=== PATIENT | female | born 1950 | race Caucasian/White ===

== ENCOUNTER → 2017-09-01 15:19 | Outpatient (CLI) | payer MEDICARE, SELFPAY ==
--- NOTE | 2017-09-01 15:30 | CT_ITS ---
EXAM: CT LUNG LOW DOSE WO CONTRAST COMPARISON: None HISTORY: 67-year-old female with greater than 30 pack-year smoking hash history asymptomatic ORDERING PHYSICIAN: Corbin Dominguez MD PATIENT AGE: 67 years TECHNIQUE: The exam was performed on a GE Light Speed [address] scanner using 2.94 mGy CTDI. A low dose helical CT CHEST was performed on a multi-detector scanner The LDCT was performed in a facility that meets the criteria for the screening program. Data regarding this exam was submitted to ACR which is an approved registry. The order for this exam indicates that it came as a result of a lung cancer screening counseling shard decision-making visit that included all the elements required of such a visit including smoking cessation. The radiologist interpreting this exam meets the [facility] criteria for the LDCT lung cancer screening program. The exam is reported using the Lung-RADS classification scale and reported to the ACR registry. NOTE: This study was performed for the specific purposes of lung cancer screening and is not an alternative to diagnostic chest CT. RADIATION DOSE: CTDI vol(CT dose Index-volume) = 2.94 mGy DLP (Dose Length Product) = 101.73 mGcm FINDINGS: There are scattered small calcified granulomas. There is a noncalcified 6 mm nodule in the right upper lobe posteriorly. No effusions or infiltrates. No obvious mediastinal or hilar adenopathy. There is minimal focal thickening of the anterior pericardium nonspecific. Centrilobular emphysema IMPRESSION: 1. Lung RADS Category: 3, probably benign 2. Other findings: Centrilobular edema, old granulomatous disease RECOMMENDATIONS: 6 month LDCT follow-up
== END ==
PROVIDERS: Family Provider Family Medicine; PCP Family Medicine; Visit Provider Family Medicine
DX: Z12.2 Encounter for screening for malignant neoplasm of respiratory organs (principal); Z87.891 Personal history of nicotine dependence

== ENCOUNTER → 2017-10-05 14:38 | Outpatient (POV) | payer MEDICARE, SELFPAY | PROVIDERS: Family Provider Family Medicine; PCP Family Medicine; Visit Provider Dermatology | DX: Z00.00 Encounter for general adult medical examination without abnormal findings (principal) ==

== ENCOUNTER → 2018-02-01 09:42 | Outpatient (CLI) | payer MEDICARE, SELFPAY ==
[2018-02-01 10:02] LABS: Blood Urea Nitrogen 18 mg/dL (7-18); Creatinine,Serum 0.82 mg/dL (0.55-1.02); Estimated Glomerular Filt Rate 69 ml/min (>60); GFR (African American) 83 ML/MIN (>60)
--- NOTE | 2018-02-01 10:19 | CT_ITS ---
CT abdomen pelvis w con CLINICAL INDICATION: Left lower quadrant pain with vomiting ITS.REASON: LLQ ABD PAIN, VOMITING ORDERING PHYSICIAN: Corbin Dominguez MD PATIENT AGE: 68 years COMPARISON: None TECHNIQUE: Axial images obtained with sagittal and coronal reformats. All CT scans at the facility use one or more dose reduction, viz: automated exposure control, ma/kV adjustment per patient size (including targeted exams where dose is matched to indication, i.e. head), or iterative reconstruction technique. PROCEDURE: Oral Contrast: Redicat IV Contrast: 75 mL's of Isovue-370. FINDINGS: There are dependent changes in the lung bases. The liver, spleen, and adrenal glands are unremarkable. No obvious pancreatic mass. There are a few punctate calcifications within the head of the pancreas and could be related to chronic pancreatitis. The gallbladder has an unremarkable appearance. No hydronephrosis. No renal or ureteral calculi. No evidence of appendicitis, intestinal obstruction, or free air. There is diverticulosis of the descending and sigmoid colon. No evidence of diverticulitis. No abscess or abnormal fluid collection in the pelvis. Degenerative disc disease L4-L5. IMPRESSION: 1. No acute abdominal or pelvic findings. 2. Diverticulosis of the descending and sigmoid colon but no convincing evidence of diverticulitis.
== END ==
PROVIDERS: Family Provider Family Medicine; PCP Family Medicine; Visit Provider Family Medicine
DX: R10.32 Left lower quadrant pain (principal); R11.2 Nausea with vomiting, unspecified
CPT/HCPCS: 36415; 74177; 82565; 84520; Q9967

== ENCOUNTER → 2018-02-28 08:10 | Outpatient (CLI) | payer MEDICARE, SELFPAY ==
--- NOTE | 2018-02-28 08:12 | US_ITS ---
US abdomen limited History:Right upper quadrant pain with nausea Ordering Physician:Corbin Dominguez MD Patient Age: 68 years Comparison:06/05/2012 Findings: Pancreas:Unremarkable. No obvious mass or abnormal fluid collection. No ductal dilatation Liver:There is a small area of decreased echogenicity in the left hepatic lobe at 12 mm similar to the previous exam. No other significant anomalies. Right Kidney:Unremarkable. Normal size and echogenicity. No hydronephrosis Gallbladder: No shadowing stones are evident. There is a small area of increased echogenicity along the inferior aspect of the gallbladder anteriorly and may be due to small amount sludge. This does not shadow. No gallbladder wall thickening, pericholecystic fluid, or biliary dilatation. IMPRESSION: 1. Tiny nonshadowing stones versus sludge along the posterior wall the gallbladder. No shadowing stones evident. No ductal dilatation. 2. No change small area of decreased echogenicity in the anterior aspect of the liver radiology indeterminate not significantly changed
== END ==
PROVIDERS: Family Provider Family Medicine; PCP Family Medicine; Visit Provider Family Medicine
DX: R10.11 Right upper quadrant pain (principal)
CPT/HCPCS: 76705

== ENCOUNTER → 2018-03-07 14:32 | Outpatient (CLI) | payer MEDICARE, SELFPAY ==
[2018-03-07 14:55] LABS: Basophils % 0.4 % (0.1-2.0); Eosinophils # 0.1 K/mm3 (0.0-0.4); Eosinophils % 1.3 % (0.1-12.0); Hemoglobin 14.1 g/dL (12.2-16.2); Lymphocytes # 3.1 K/mm3 (0.7-4.5); Lymphocytes % 34.9 K/mm3 (10-50); Mean Corpuscular HGB Conc 33.5 g/dL (31.8-35.4); Mean Corpuscular Hemoglobin 33.4 pg (27.0-31.2); Mean Corpuscular Volume 99.8 fl (81-99); Mean Platelet Volume 7.3 fl (7.4-10.4); Monocytes # 0.5 K/mm3 (0.1-1.0); Monocytes % 5.9 % (1.7-9.3); Neutrophils # 5.2 K/mm3 (1.8-7.8); Neutrophils % 57.6 % (37.0-80.0); Platelet Count 288 K/mm3 (142-424); Red Blood Count 4.21 M/mm3 (4.20-5.40); Red Cell Distribution Width 12.8 % (11.5-17.5)
[2018-03-07 15:30] LABS: Alanine Aminotransferase 33 U/L (12-78); Albumin Level 3.7 gm/dL (3.4-5.0); Albumin/Globulin Ratio 1.3 (1.1-1.8); Alkaline Phosphatase 88 U/L (46-116); Anion Gap 12.2 mEq/L (5-15); Aspartate Amino Transferase 14 U/L (15-37); Bilirubin,Total 0.3 mg/dL (0.2-1.0); Blood Urea Nitrogen 12 mg/dL (7-18); Carbon Dioxide 29 mmol/L (21.0-32.0); Chloride 105 mmol/L (98-107); Creatinine,Serum 0.78 mg/dL (0.55-1.02); Estimated Glomerular Filt Rate 73 ml/min (>60); GFR (African American) 88 ML/MIN (>60); Globulin 2.9 gm/dl (1.3-3.2); Glucose 93 mg/dL (74-106); Potassium 4.2 mmoL/L (3.5-5.1); Sodium 142 mmol/L (136-145); Total Protein,Serum 6.6 gm/dL (6.4-8.2)
== END ==
PROVIDERS: PCP Family Medicine; Visit Provider Surgery
DX: K81.1 Chronic cholecystitis (principal)
CPT/HCPCS: 36415; 80053; 85025; 93005

== ENCOUNTER → 2018-05-03 14:33 | Outpatient (CLI) | payer MEDICARE, SELFPAY ==
[2018-05-03 16:09] LABS: Blood Urea Nitrogen 13 mg/dL (7-18); Estimated Glomerular Filt Rate 71 ml/min (>60); GFR (African American) 86 ML/MIN (>60)
== END ==
PROVIDERS: PCP Family Medicine; Visit Provider Family Medicine
DX: R91.1 Solitary pulmonary nodule (principal)
CPT/HCPCS: 36415; 82565; 84520

== ENCOUNTER → 2018-05-09 10:12 | Outpatient (CLI) | payer MEDICARE, SELFPAY ==
--- NOTE | 2018-05-09 10:14 | CT_ITS ---
CT chest w con HISTORY: Follow-up lung nodule ITS.REASON: LUNG NODULE ORDERING PHYSICIAN: Corbin Dominguez MD PATIENT AGE: 68 years COMPARISON: 09/01/2017 TECHNIQUE: Axial images obtained following the administration of 75 mL of Isovue 370 . Sagittal, and coronal reformatted images are also generated and reviewed. All CT scans at the facility use one or more dose reduction, viz: automated exposure control, ma/kV adjustment per patient size (including targeted exams where dose is matched to indication, i.e. head), or iterative reconstruction technique. FINDINGS: There is mild diffuse centrilobular emphysema. No mediastinal or hilar mass or adenopathy is evident. There is a 7 mm hypodense nodule within the isthmus of the thyroid gland. No change 4 mm right upper lobe nodule superiorly and 4 mm right upper lobe nodule posteriorly. 3 mm nodule right lower lobe laterally unchanged. Atelectatic changes are present in the lung bases. No acute bony anomalies. There is coarse calcification in the central aspect of the pancreas with some focal fat density in the mid aspect of the pancreas. This had a similar appearance dating back to 09/18/2012. IMPRESSION: Centrilobular emphysema with stable small pulmonary nodules. No significant change with no acute finding.
--- NOTE | 2018-05-09 10:42 | HMH.ITSHM ---
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 []REGLAN,SIMVASTATIN,PREVCID,VIT D
== END ==
PROVIDERS: PCP Family Medicine; Visit Provider Family Medicine
DX: R91.1 Solitary pulmonary nodule (principal)
CPT/HCPCS: 71260; Q9967

== ENCOUNTER → 2018-06-19 10:46 | Outpatient (CLI) | payer MEDICARE, SELFPAY ==
[2018-06-19 12:06] LABS: Blood Urea Nitrogen 12 mg/dL (7-18); Creatinine,Serum 0.92 mg/dL (0.55-1.02); Estimated Glomerular Filt Rate 60 ml/min (>60); GFR (African American) 73 ML/MIN (>60)
== END ==
PROVIDERS: Visit Provider Family Medicine
DX: R10.32 Left lower quadrant pain (principal)
CPT/HCPCS: 36415; 82565; 84520

== ENCOUNTER → 2018-06-21 10:10 | Outpatient (CLI) | payer MEDICARE, SELFPAY ==
--- NOTE | 2018-06-21 10:25 | CT_ITS ---
CT abdomen pelvis w con CLINICAL INDICATION: ITS.REASON: LLQ PAIN,LEUKOCYTOSIS,DIVERTICULOSIS ORDERING PHYSICIAN: Corbin Dominguez MD PATIENT AGE: 68 years COMPARISON: 02/01/2018 TECHNIQUE: Axial images obtained with sagittal and coronal reformats. All CT scans at the facility use one or more dose reduction, viz: automated exposure control, ma/kV adjustment per patient size (including targeted exams where dose is matched to indication, i.e. head), or iterative reconstruction technique. PROCEDURE: Oral Contrast: Redicat IV Contrast: 75 mL of Isovue-370. FINDINGS: There are mild atelectatic changes in the left lower lobe. The liver, spleen, adrenal glands and pancreas show no acute finding. There is some coarse calcification noted in the body of the pancreas posteriorly nonspecific and unchanged. No renal or ureteral calculi. No hydronephrosis. 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 No evidence of appendicitis. No intestinal obstruction or free air. There is diffuse diverticulosis of the descending and sigmoid colon There is thickening of the sigmoid colon with minimal stranding of the pericolic fat consistent with diverticulitis. Inflamed diverticulum is felt to be in the left lateral aspect of the sigmoid colon adjacent to the ovary. No free air. No abscess. There is minimal amount of fluid in the cul-de-sac. Scattered calcifications are present in the adnexa on both sides. No acute bony anomalies. IMPRESSION: 1. 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
== END ==
PROVIDERS: PCP Family Medicine; Visit Provider Family Medicine
DX: R10.32 Left lower quadrant pain (principal); D72.829 Elevated white blood cell count, unspecified; K57.30 Diverticulosis of large intestine without perforation or abscess without bleeding
CPT/HCPCS: 74177; Q9967

== ENCOUNTER → 2018-09-18 09:21 | Outpatient (CLI) | payer MEDICARE, SELFPAY ==
[2018-09-18 09:26] LABS: Adenovirus F 40/41, stool Not Detected (NotDetected); Astrovirus Not Detected (NotDetected); Campylobacter Not Detected (NotDetected); Clostridium Difficile A/B, PCR Not Detected (NotDetected); Cryptosporidium Not Detected (NotDetected); Cyclospora Cayetanesis Not Detected (NotDetected); Entamoeba histolytica Not Detected (NotDetected); Enteroaggregative E coli Not Detected (NotDetected); Enteropathogenic E coli Not Detected (NotDetected); Enterotoxigenic E coli Not Detected (NotDetected); Giardia lamblia Not Detected (NotDetected); Norovirus Not Detected (NotDetected); Plesimonas Shigalloides, PCR Not Detected (NotDetected); Rotavirus A Not Detected (NotDetected); Salmonella, PCR Not Detected (NotDetected); Sapovirus Not Detected (NotDetected); Shiga-like toxin E coli Not Detected (NotDetected); Shigella Enterovasive E coli Not Detected (NotDetected); Vibrio Cholerae Not Detected (NotDetected); Vibrio, PCR Not Detected (NotDetected); Yersinia Entercolitica, PCR Not Detected (NotDetected)
[2018-09-18 09:36] LABS: Occult Blood,Stool Positive (Negative)
[2018-09-18 10:49] LABS: Alanine Aminotransferase 29 U/L (12-78); Albumin Level 3.6 gm/dL (3.4-5.0); Albumin/Globulin Ratio 1.2 (1.1-1.8); Alkaline Phosphatase 98 U/L (46-116); Anion Gap 14.6 mEq/L (5-15); Aspartate Amino Transferase 19 U/L (15-37); Bilirubin,Total 0.4 mg/dL (0.2-1.0); Blood Urea Nitrogen 9 mg/dL (7-18); Calcium 10.5 mg/dL (8.5-10.1); Carbon Dioxide 26 mmol/L (21.0-32.0); Chloride 106 mmol/L (98-107); Creatinine,Serum 0.77 mg/dL (0.55-1.02); Estimated Glomerular Filt Rate 74 ml/min (>60); GFR (African American) 90 ML/MIN (>60); Globulin 3.1 gm/dl (1.3-3.2); Glucose 156 mg/dL (74-106); Potassium 4.6 mmoL/L (3.5-5.1); Sodium 142 mmol/L (136-145); Total Protein,Serum 6.7 gm/dL (6.4-8.2)
[2018-09-18 10:52] LABS: Basophils % 0.3 % (0.1-2.0); Eosinophils # 0.1 K/mm3 (0.0-0.4); Eosinophils % 0.7 % (0.1-12.0); Hematocrit 43.9 % (37.0-47.0); Hemoglobin 14.5 g/dL (12.2-16.2); Lymphocytes # 2.3 K/mm3 (0.7-4.5); Lymphocytes % 28.4 % (10-50); Mean Corpuscular HGB Conc 33.2 g/dL (31.8-35.4); Mean Corpuscular Hemoglobin 33.2 pg (27.0-31.2); Mean Platelet Volume 7.9 fl (7.4-10.4); Monocytes # 4.5 K/mm3 (0.1-1.0); Neutrophils # 1.4 K/mm3 (1.8-7.8); Neutrophils % 16.6 % (37.0-80.0); Platelet Count 349 K/mm3 (142-424); Red Blood Count 4.38 M/mm3 (4.20-5.40); White Blood Count 8.2 K/mm3 (4.8-10.8)
[2018-09-18 11:21] LABS: MANUAL DIFFERENTIAL MANUAL DIFFERENTIAL (MANUAL DIFF)
[2018-09-18 11:25] LABS: Lymphocytes % 16 % (10-50); Neutrophils % 80 % (42-76); Platelet Estimate Normal; RBC Morphology Normal; Total Cells Counted 100
[2018-09-18 11:28] LABS: Monocytes % 54.1 % (1.7-9.3)
== END ==
PROVIDERS: Visit Provider Family Medicine
DX: R19.7 Diarrhea, unspecified (principal)
CPT/HCPCS: 36415; 80053; 82272; 85007; 85025; 87506; G0328

== ENCOUNTER → 2018-11-30 08:11 | Outpatient (CLI) | payer MEDICARE, SELFPAY ==
[2018-11-30 09:05] LABS: Basophils % 0.7 % (0.1-2.0); Eosinophils # 0.2 K/mm3 (0.0-0.4); Hematocrit 40.2 % (37.0-47.0); Hemoglobin 13.8 g/dL (12.2-16.2); Lymphocytes # 2.2 K/mm3 (0.7-4.5); Lymphocytes % 35.2 % (10-50); Mean Corpuscular HGB Conc 34.3 g/dL (31.8-35.4); Mean Corpuscular Hemoglobin 32.5 pg (27.0-31.2); Mean Corpuscular Volume 94.9 fl (81-99); Mean Platelet Volume 7.7 fl (7.4-10.4); Monocytes # 2.9 K/mm3 (0.1-1.0); Monocytes % 47.8 % (1.7-9.3); Neutrophils # 0.8 K/mm3 (1.8-7.8); Platelet Count 262 K/mm3 (142-424); Red Blood Count 4.23 M/mm3 (4.20-5.40); Red Cell Distribution Width 13.3 % (11.5-17.5); White Blood Count 6.2 K/mm3 (4.8-10.8)
[2018-11-30 09:15] LABS: Neutrophils % 13.3 % (37.0-80.0)
[2018-11-30 09:17] LABS: MANUAL DIFFERENTIAL MANUAL DIFFERENTIAL (MANUAL DIFF)
[2018-11-30 09:43] LABS: Eosinophils % 3 % (0-3); Lymphocytes % 30 % (10-50); Monocytes % 6 % (2-9); Neutrophils % 58 % (42-76); Total Cells Counted 100
[2018-11-30 09:45] LABS: Platelet Estimate Normal; RBC Morphology Normal
[2018-11-30 11:21] LABS: Alanine Aminotransferase 29 U/L (12-78); Albumin Level 3.5 gm/dL (3.4-5.0); Albumin/Globulin Ratio 1.3 (1.1-1.8); Alkaline Phosphatase 91 U/L (46-116); Anion Gap 16.8 mEq/L (5-15); Aspartate Amino Transferase 16 U/L (15-37); Bilirubin,Total 0.5 mg/dL (0.2-1.0); Blood Urea Nitrogen 14 mg/dL (7-18); Carbon Dioxide 25 mmol/L (21.0-32.0); Chloride 108 mmol/L (98-107); Chol/HDL Ratio 2.8 (1-3.5); Cholesterol 163 mg/dL (140-200); Creatinine,Serum 0.82 mg/dL (0.55-1.02); Estimated Glomerular Filt Rate 69 ml/min (>60); GFR (African American) 83 ML/MIN (>60); Globulin 2.8 gm/dl (1.3-3.2); Glucose 95 mg/dL (74-106); HDL Cholesterol 58 mg/dL (29-89); LDL Cholesterol 91 mg/dL (0-130); Potassium 4.8 mmoL/L (3.5-5.1); Sodium 145 mmol/L (136-145); Thyroid Stimulating Hormone 0.88 uIU/ml (0.358-3.740); Total Protein,Serum 6.3 gm/dL (6.4-8.2); Triglycerides 70 mg/dL (30-200); VLDL Cholesterol 14 mg/dL (0-40)
[2018-12-02 17:07] LABS: Calcium, Ionized 6.1 mg/dL (4.5-5.6)
== END ==
PROVIDERS: Visit Provider Family Medicine
DX: E83.52 Hypercalcemia (principal); E78.2 Mixed hyperlipidemia; R19.5 Other fecal abnormalities
CPT/HCPCS: 36415; 80053; 80061; 82330; 84443; 85007; 85025

== ENCOUNTER → 2019-01-21 09:04 | Outpatient (POV) | payer MEDICARE, SELFPAY | PROVIDERS: PCP Nurse Practitioner Family; Visit Provider Nurse Practitioner Family | DX: Z00.00 Encounter for general adult medical examination without abnormal findings (principal) ==

== ENCOUNTER → 2019-05-20 10:17 | Outpatient (POV) | payer MEDICARE, SELFPAY | PROVIDERS: PCP Family Medicine; Visit Provider Nurse Practitioner Family | DX: Z00.00 Encounter for general adult medical examination without abnormal findings (principal) ==

== ENCOUNTER → 2019-09-02 08:54 | Outpatient (CLI) | payer MEDICARE, SELFPAY ==
--- NOTE | 2019-09-02 09:03 | US_ITS ---
PROCEDURE: US AORTA CLINICAL INDICATION: FAMILY HX OF AAA..SCREENING COMPARISON: No exams were available for comparison FINDINGS: No evidence of abdominal aortic aneurysm. Proximal common iliacs have an unremarkable appearance. IMPRESSION: Negative for abdominal aortic aneurysm Dictated by: Triston Dennis MD 09/02/2019 13:58 Electronically signed by Triston Dennis MD in [place] 09/02/2019 13:58
--- NOTE | 2019-09-02 09:07 | CT_ITS ---
PROCEDURE: CT LUNG SCREENING CLINICAL INDICATION: NICOTINE DEPENDENCE...SCREENING FOR LUNG CA COMPARISON: LUNGSCREEN CT lung screening from 09/01/2017 TECHNIQUE: The exam was performed on a GE Light Speed [address] scanner using 2.90 mGy CTDI. A low dose helical CT CHEST was performed on a multi-detector scanner. All CT scans at the facility use one or more dose reduction, viz: automated exposure control, ma/kV adjustment per patient size (including targeted exams where dose is matched to indication, i.e. head), or iterative reconstruction technique. The LDCT was performed in a facility that meets the criteria for the screening program. Data regarding this exam was submitted to ACR which is an approved registry. The order for this exam indicates that it came as a result of a lung cancer screening counseling shard decision-making visit that included all the elements required of such a visit including smoking cessation. The radiologist interpreting this exam meets the [facility] criteria for the LDCT lung cancer screening program. The exam is reported using the Lung-RADS classification scale and reported to the ACR registry. NOTE: This study was performed for the specific purposes of lung cancer screening and is not an alternative to diagnostic chest CT. RADIATION DOSE: CTDI vol(CT dose Index-volume) = 2.90mG DLP (Dose Length Product) = 94.29 mGcm FINDINGS: COPD with centrilobular emphysema. There are stable 4 and 5 mm nodules in the right upper lobe. A new 4 mm nodules present in the right upper lobe laterally image number 22 series 4 nonspecific. No suspicious pulmonary nodules are evident. No effusions or infiltrates. OTHER FINDINGS: No other pertinent findings evident. IMPRESSION: Lung rads category 2 benign findings. Recommend follow-up [address] Dictated by: Triston Dennis MD 09/07/2019 09:56 Electronically signed by Triston Dennis MD in [place] 09/07/2019 09:56
[2019-09-02 10:32] LABS: Blood Urea Nitrogen 12 mg/dl (7-17); Estimated Glomerular Filt Rate 62 ml/min (>60); GFR (African American) 75 ML/MIN (>60)
== END ==
PROVIDERS: PCP Family Medicine; Visit Provider Family Medicine
DX: Z87.891 Personal history of nicotine dependence (principal); Z12.2 Encounter for screening for malignant neoplasm of respiratory organs; I71.4 Abdominal aortic aneurysm, without rupture
CPT/HCPCS: 36415; 76770; 82565; 84520

== ENCOUNTER → 2019-09-04 09:07 | Outpatient (CLI) | payer MEDICARE, SELFPAY ==
--- NOTE | 2019-09-04 09:17 | CT_ITS ---
PROCEDURE: CT ABDOMEN PELVIS W CON CLINICAL INDICATION: EPIGASTRIC PAIN, NAUSEA, DYSPEPSIA,CONSTIPATION COMPARISON: ABDPELW CT ABD PELVIS WITH CONTRAST from 09/18/[address] abdomen pelvis w con from 06/21/2018 TECHNIQUE: IV Contrast: 75ML OPTIRAY 350 Oral Contrast 450ml Redicat Axial images obtained with sagittal and coronal reformats. All CT scans at the facility use one or more dose reduction, viz: automated exposure control, ma/kV adjustment per patient size (including targeted exams where dose is matched to indication, i.e. head), or iterative reconstruction technique. FINDINGS: LOWER THORAX: No acute finding ABDOMEN & PELVIS: Post cholecystectomy change. There is a 5 mm area of decreased density in the right hepatic lobe inferiorly. This is nonspecific too small to categorize along the peripheral aspect of the liver. Spleen, adrenal glands, and kidneys have an unremarkable appearance. There is some coarse calcification in the body and the head of the pancreas and may represent chronic pancreatitis. There is a fatty area in the junction of the body and tail the pancreas. This may only represent an area focal pancreatic atrophy with filling in of the fat and does not appear significantly changed dating back to 09/18/2012. No intestinal obstruction or free air. No evidence of appendicitis the. There is a mild amount of retained colonic feces. Postsurgical changes are present involving the sigmoid colon. No evidence of diverticulitis. No pelvic mass or abnormal fluid collection. Minimal nodularity is present along the anterior aspect of the surface of the uterus and may be due to small fibroid at 8 mm. Postsurgical changes are present involving the anterior abdominal wall. No acute bony findings. IMPRESSION: 1. Coarse calcification in the body and head of the pancreas suggesting chronic pancreatitis. 2. Other nonacute findings as described above. Dictated by: Triston Dennis MD 09/05/2019 10:08 Electronically signed by Triston Dennis MD in [place] 09/05/2019 10:08
== END ==
PROVIDERS: PCP Family Medicine; Visit Provider Internal Medicine Gastroenterology
DX: R11.0 Nausea (principal); R10.13 Epigastric pain; K59.00 Constipation, unspecified
CPT/HCPCS: 74177; Q9967

== ENCOUNTER → 2019-09-16 10:56 | Outpatient (CLI) | payer MEDICARE, SELFPAY ==
[2019-09-16 13:18] LABS: Chloride 109 mmol/L (98-107)
[2019-09-16 13:19] LABS: Potassium 4.2 mmoL/L (3.5-5.1); Sodium 140 mmol/L (136-145)
[2019-09-16 13:21] LABS: Alanine Aminotransferase 27 U/L (12-78); Amylase 37 U/L (30-110); Anion Gap 12.2 mEq/L (5-15); Aspartate Amino Transferase 27 U/L (14-36); Blood Urea Nitrogen 13 mg/dl (7-17); Carbon Dioxide 23 mmol/L (22.0-30.0); Estimated Glomerular Filt Rate 82 ml/min (>60); GFR (African American) 100 ML/MIN (>60)
[2019-09-16 13:22] LABS: Albumin Level 4.3 g/dl (3.5-5.0); Albumin/Globulin Ratio 1.8 (1.1-1.8); Alkaline Phosphatase 82 U/L (38-126); Bilirubin,Total 0.4 mg/dl (0.2-1.3); Calcium 10.6 mg/dl (8.4-10.2); Globulin 2.4 g/dL (1.3-3.2); Glucose 116 mg/dl (74-100); Lipase 39 U/L (23-300); Total Protein,Serum 6.7 g/dl (6.3-8.2)
[2019-09-20 11:22] LABS: CA 19-9 57 U/mL (0-35)
== END ==
PROVIDERS: Visit Provider Internal Medicine Gastroenterology
DX: R11.0 Nausea (principal); K86.1 Other chronic pancreatitis; R10.13 Epigastric pain
CPT/HCPCS: 36415; 80053; 82150; 83690; 86316

== ENCOUNTER → 2019-11-26 10:58 | Outpatient (CLI) | payer MEDICARE, SELFPAY ==
[2019-11-26 12:10] LABS: Alanine Aminotransferase 17 U/L (12-78); Albumin Level 4.5 g/dl (3.5-5.0); Albumin/Globulin Ratio 1.9 (1.1-1.8); Alkaline Phosphatase 100 U/L (38-126); Amylase 35 U/L (30-110); Anion Gap 7.6 mEq/L (5-15); Aspartate Amino Transferase 22 U/L (14-36); Bilirubin,Total 0.4 mg/dl (0.2-1.3); Blood Urea Nitrogen 17 mg/dl (7-17); Calcium 10.5 mg/dl (8.4-10.2); Carbon Dioxide 27 mmol/L (22.0-30.0); Chloride 108 mmol/L (98-107); Estimated Glomerular Filt Rate 82 ml/min (>60); GFR (African American) 100 ML/MIN (>60); Globulin 2.4 g/dL (1.3-3.2); Glucose 94 mg/dl (74-100); Lipase 83 U/L (23-300); Potassium 4.6 mmoL/L (3.5-5.1); Sodium 138 mmol/L (136-145); Total Protein,Serum 6.9 g/dl (6.3-8.2)
[2019-11-28 10:05] LABS: CA 19-9 50 U/mL (0-35)
== END ==
PROVIDERS: Visit Provider Internal Medicine Gastroenterology
DX: K86.1 Other chronic pancreatitis (principal); R11.0 Nausea; R10.33 Periumbilical pain
CPT/HCPCS: 36415; 80053; 82150; 83690; 86316

== ENCOUNTER → 2019-12-03 08:52 | Outpatient (CLI) | payer MEDICARE, SELFPAY ==
--- NOTE | 2019-12-03 08:55 | XR_ITS ---
PROCEDURE: XR DEXA AXIAL SKELETON CLINICAL HISTORY: OSTEOPENIA COMPARISON: BONE3 BONE DENSITOMETRY(HIP:LT SPINE from 01/11/2017, 12/20/2012, 05/10/2011 and 12/08/2009 FINDINGS: The average BMD L1 through L4 lumbar spine is 0.877 g per sq cm with a T-score -1.5. This shows a slight interval decrease in bone density of from the most recent exam with a T-score is -1.1. Right hip: The total BMD is 0.765 g per sq cm. The T-score is -1.5. The right femoral neck is 0.670 g per sq cm with a T-score -1.6. There has been slight interval decrease in bone density for both measurements from the most recent exam. Left hip: The total BMD is 0.657 g per sq cm the T score of -2.3. The left femoral neck is 0.620 g per sq cm with a T-score -2.1. Both of these values show interval decrease in bone density from most recent exam. IMPRESSION: T-scores in the osteopenia range for lumbar spine and bilateral hips with interval decrease in bone density from the most recent exam. Dictated by: Dr. Carl Teague MD 12/03/2019 09:[address] Carl Teague MD in [place] 12/03/2019 09:53
== END ==
PROVIDERS: PCP Family Medicine; Visit Provider Family Medicine
DX: M85.88 Other specified disorders of bone density and structure, other site (principal)
CPT/HCPCS: 77080

== ENCOUNTER → 2020-01-06 15:33 | Outpatient (POV) | payer MEDICARE, SELFPAY | PROVIDERS: Visit Provider Nurse Practitioner Family | DX: Z00.00 Encounter for general adult medical examination without abnormal findings (principal) ==

== ENCOUNTER 2020-01-27 12:54 | Emergency (ER) | payer MEDICARE, SELFPAY ==
[2020-01-27 13:01] VITALS: BP 104/74; PULSE 77; RESP 17; TEMP 36.8; O2SAT 98; BMI 21.4
--- NOTE | 2020-01-27 13:31 | HMH.EDUTC ---
[facility] [place] Disposition Clinical Impression: COVID-19 ruled out Disposition: Home, Self-Care Condition on Discharge: Good Instructions: Preventing the Spread of Coronavirus Discharge Instructions Additional Instructions: No sign of a bacterial infection. Monitor temp. Tylenol or Motrin as needed for pain or fever Encourage fluids, water, Gatorade, Powerade, Pedialyte if infant/toddler/child Your swab was sent. These results are typically sent to the primary care. Be sure you follow-up in 2-3 days if no improvement so we can review the results and treat if necessary if you do not have a primary care, I recommend to get 1 but in the meantime, call for results. Follow-up immediately for new or worsening symptoms or no noticeable improvement over the next 48-72 hours. Referrals: Corbin Dominguez MD [Primary Care Provider] - Time of Disposition: 13:39 Medical Decision Making - [place] Inquiry Pt receiving controlled substance: No Vital Signs: 01/27/20 13:01 Temperature 98.2 F Temperature Source Oral Pulse Rate [Left] 77 Respiratory Rate 17 Blood Pressure [Right Arm] 104/74 L Blood Pressure Mean [Right Arm] 84 Blood Pressure Source [Right Arm] Automatic Cuff Blood Pressure Position [Right Arm] Sitting 02 Sat by Pulse Oximetry 98 Oxygen Delivery Method Room Air Orders (Tests/Meds): ORDERS Category Date Time Status SARS-CoV-2, FREDIS Stat Lab 01/27/20 13:21 Ordered [facility] [place] HPI - General Chief complaint: Urgent [facility] Center Stated complaint: covid testing Time Seen by Provider: 01/27/20 13:32 Mode of Arrival: Ambulatory Source of Information: Patient Limitations: No Limitations Description of Symptoms (Recalled from Triage Doc. by RN): Wants to be tested for Covid. No exposure. No symptoms. HEENT Symptoms (Recalled from RN notes): No Resp Symptoms (Recalled from RN notes): No Skin Symptoms (Recalled from RN notes): No MS Symptoms (Recalled from RN notes): No Functional Status (Recalled from RN notes): stable - History of Present Illness Provider Complaint: 69 yr old female presents for covid testing. Pt states no positive contacts or symptoms. Pt states she just wants a peace of mind that she is not positive. - Related Data Home Medications Medication Instructions Recorded Confirmed Metoclopramide HCl [Metoclopramide 10 mg PO QID 02/14/18 07/26/19 10mg Tablet] Simvastatin 40 mg PO DAILY 02/14/18 07/26/19 Lansoprazole [Prevacid] 15 mg PO DAILY 03/09/18 07/26/19 Cholecalciferol (Vitamin D3) 1,000 unit PO DAILY 04/01/19 07/26/19 [Vitamin D3 1,000 Unit Cap] Allergies Allergy/AdvReac Type Severity Reaction Status Date / Time No Known Allergies Allergy Verified 01/27/20 13:24 - Worker's Comp Is this a Worker's Comp case?: No Is this an [facility] Worker's Comp?: No Is this a [place] Worker's Comp?: No [facility] History - Hepatitis A Screen Drug use history?: No High risk sexual behaviors?: No History of sexually transmitted infection?: No Currently employed?: No Childcare worker?: No Do you have indoor plumbing?: Yes Do you have electricity?: Yes Attestation statement:: This patient has been screened for Hepatitis A risk factors. Medical History: Reports:: Gastroesophageal Reflux Disease(GERD), Hyperlipidemia, Hypertension Denies:: Cancer, Diabetes Mellitus Type 1, Diabetes Mellitus Type 2, Internal Pacemaker, Lung Disease, MRSA, Seizures Other Medical History: Denies: Blood Transfusion Reaction Laterality Cases: Right: Lumpectomy, Bilateral: Tonsillectomy Other Surgeries: No: Pacemaker Amputation: No Fractures: No - Social History Smoking Status: Current every day smoker Tobacco Type: cigarettes # Packs/Day (cigarettes): 1 Alcohol Intake: never Alcohol Intake Frequency:: holidays/special occasions only Substance Use Type: other Occupational Status: retired Housing: house Household Members: significant other Family Hx:: Cancer, Heart Attack ROS Obtained: Yes Systems tiffany
[2020-01-27 14:03] VITALS: BP 104/74; PULSE 77; RESP 17; TEMP 36.8; O2SAT 98
[2020-01-28 13:10] LABS: Covid-19 Nasal PCR Sendout Lex Not Detected
== END 2020-01-27 14:05 | disposition home or self-care (01) ==
PROVIDERS: Emergency Provider Nurse Practitioner Family; PCP Family Medicine
DX: Z03.818 Encounter for observation for suspected exposure to other biological agents ruled out (principal); E78.5 Hyperlipidemia, unspecified; K21.9 Gastro-esophageal reflux disease without esophagitis; I10 Essential (primary) hypertension; F17.210 Nicotine dependence, cigarettes, uncomplicated
CPT/HCPCS: G0463; 99201; U0004

== ENCOUNTER → 2020-03-14 08:10 | Outpatient (CLI) | payer MEDICARE, SELFPAY ==
[2020-03-14 09:22] LABS: Coronavirus 19 IgG Antibody Negative (Negative); Coronavirus 19 IgM Antibody Negative (Negative)
== END ==
PROVIDERS: Visit Provider Internal Medicine Gastroenterology
DX: Z01.818 Encounter for other preprocedural examination (principal); K86.1 Other chronic pancreatitis
CPT/HCPCS: 36415; 86328

== ENCOUNTER 2020-03-16 12:55 | Day surgery (SDC) | payer MEDICARE, SELFPAY ==
[2020-03-10 14:13] VITALS: BMI 21.2
[2020-03-16 14:38] VITALS: BP 130/70; PULSE 54; RESP 18; TEMP 36.4; O2SAT 97
--- NOTE | 2020-03-16 14:56 | P.PN_ITS ---
[facility] Anesthesia Checklist - Structural Data Admitted From: Home Planned Operative Procedure/s: ercp Consent for Planned Operative Procedure(s) Verified: Yes - Additional verifications Anesthesia Reactions: No Hx Blood Transfusions: No Blood Transfusion Reaction: No - Airway Assessment C-Spine Mobility Assessed: Yes TMJ Mobility Assessed: Yes Dentition: Good Dentition - Neurological Assessment Level of Consciousness: Awake, Alert, Appropriate - Anesthesia Plan Anesthesia Risk discussed: Yes ASA Class: II Anesthesia Type: MAC [facility] History I have reviewed the patient's past medical history: Yes Medical History: Reports:: Gastroesophageal Reflux Disease(GERD), Hyperlipidemia, Hypertension Denies:: Cancer, Diabetes Mellitus Type 1, Diabetes Mellitus Type 2, Internal Pacemaker, Lung Disease, MRSA, Seizures *Have you ever received a pneumonia vaccine?: Yes *Have you received a flu vaccine this season?: Yes Other Medical History: Denies: Blood Transfusion Reaction Anesthesia experience/problems:: none Laterality Cases: Right: Lumpectomy, Bilateral: Tonsillectomy Other Surgeries: No: Pacemaker Amputation: No Fractures: No - *Social History Smoking Status: Current every day smoker Tobacco Type: cigarettes # Packs/Day (cigarettes): 1 Alcohol Intake: never Alcohol Intake Frequency:: holidays/special occasions only Substance Use Type: other *Occupational Status:: retired Housing: house Household Members: spouse *Travel in the last 8 weeks: None Family Hx:: Cancer, Heart Attack
--- NOTE | 2020-03-16 15:08 | FL_ITS ---
PROCEDURE: FL ERCP CLINICAL INDICATION: stent removal Abdominal pain, dyspepsia, nausea COMPARISON: No exams were available for comparison FINDINGS: Fluoroscopy time: 1 minutes and 58 seconds Common bile duct has an unremarkable appearance normal in caliber without obvious filling defects. There has been a prior cholecystectomy. Pancreatic duct was cannulated and only small portion of the pancreatic duct was filled in the head of the pancreas. This does raises suspicion a pancreatic divisum. There is a question of narrowing of 1 of the small pancreatic side branch ducts. Fluoroscopic correlation suggested. IMPRESSION: 1. Unremarkable appearing common bile duct. 2. Possible pancreatic divisum. Please see above for detail. MRCP may provide further evaluation. Dictated by: Triston Dennis MD 04/06/2020 16:08 Triston Dennis MD in [place] 04/06/2020 16:08
--- NOTE | 2020-03-16 16:15 | HMH.PROC ---
[facility] Procedure Note Procedure Note:: ERCP procedure Report: Endoscopic retrograde cholangiopancreatography with biliary sphincterotomy Endoscopist: Yevgeniy Bustamante II, MD Referring Physician: Corbin Dominguez MD Date of Procedure: March 16, 2020 Equipment: Olympus 180 side viewing endoscope duodenoscope Sedation: MAC sedation Indication: Mrs. Saab is a 70-year-old female with chronic dyspepsia and nausea. She had periumbilical abdominal discomfort. She did have diverticulitis surgery in June 2018. I did request CT scan of the abdomen and pelvis in September 2019. This did identify coarse calcification in the body and the head of the pancreas representing chronic pancreatitis and there was some fatty area in the junction of the body and tail of the pancreas which may represent some pancreatic atrophy. The patient is a long-term tobacco smoker. I did recommend cessation of smoking and use of a pancreatic digestive enzyme supplement (Creon 36 with meals). The patient is clinically improved. She did have lab work in November 2019 that showed amylase 35, lipase 83, alkaline phosphatase 100 and total bilirubin 0.4. Her CA-19-9 was 50 (slightly increased but lower than it had been earlier (57)). She did have follow-up with АННА Crain in January 2020. The patient is clinically much improved. Procedure: Prior to the procedure, a history and physical exam was performed, and patient's medications and allergies were reviewed. The risks, benefits and alternatives of the sedation and procedure were discussed with the patient. All questions were answered and informed consent was obtained. The patient was brought to the fluoroscopic radiology room. Patient identification and proposed procedure were verified by the physician and the nurse. The patient was placed in a swimmer's position between left lateral decubitus and prone position and the scope was passed under direct vision. Throughout the procedure, the patient's blood pressure, pulse, and oxygen saturations were monitored continuously. The ERCP was accomplished without difficulty. The patient tolerated the procedure well. Findings: The side-viewing endoscope/duodenal scope was passed directly into the upper esophagus and advanced to the second portion of the duodenum. The esophagus, stomach and duodenum were grossly normal. There was a small hiatal hernia and nonerosive GERD. There was short segment Xiong's esophagus. There was mild reactive gastropathy of the stomach. The duodenum and ampulla were normal in appearance. The common bile duct was selectively cannulated. The cholangiogram showed a normal filling common bile duct and normal intrahepatic biliary system. There was some reduced drainage of bile and contrast after several minutes. To allow improved pancreatic/biliary drainage, a small biliary sphincterotomy was performed because of the possibility of minor choledocholithiasis/sphincter of Oddi dysfunction. There was excellent decompression of the biliary system. The pancreatic duct was then cannulated. The pancreatogram did show filling of just the head of the pancreas with tapering and no filling of the neck, body or tail of the pancreas. The findings would are most likely hr representative of pancreas divisum. Certainly a stricture in the neck of the pancreas is a possibility. The minor ampulla was not identified. Impression: 1. 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 The patient is clinically improved. I would increase Creon to 2 capsules by mouth with meals. I would consider an MRCP at this point to further delineate the pancreatic ductal anatomy in a noninvasive manner. If there is any abnormal findings in the pancreas, I would recommend endoscopic ultrasound.
[2020-03-16 16:20] VITALS: BP 142/89; PULSE 61; RESP 18; TEMP 36.5; O2SAT 97
[2020-03-16 16:30] VITALS: BP 147/81; PULSE 66; RESP 16; TEMP 36.5; O2SAT 97
[2020-03-16 16:40] VITALS: BP 132/80; PULSE 56; RESP 16; TEMP 36.5; O2SAT 98
[2020-03-16 16:50] VITALS: BP 132/80; PULSE 51; RESP 16; TEMP 36.5; O2SAT 98
[2020-03-16 17:06] VITALS: BP 139/78; PULSE 48; RESP 16; TEMP 36.5; O2SAT 99
== END 2020-03-16 17:20 | disposition home or self-care (01) ==
LOC: OUTP 12:56
PROVIDERS: PCP Family Medicine; Visit Provider Internal Medicine Gastroenterology
PROC: (CPT 43262; principal; 2020-03-16 14:00)
DX: K21.9 Gastro-esophageal reflux disease without esophagitis (principal); K44.9 Diaphragmatic hernia without obstruction or gangrene; K22.70 Barrett's esophagus without dysplasia; K31.9 Disease of stomach and duodenum, unspecified; K86.9 Disease of pancreas, unspecified; E78.5 Hyperlipidemia, unspecified; I10 Essential (primary) hypertension; Z90.89 Acquired absence of other organs; Z72.0 Tobacco use; Z82.3 Family history of stroke; Z80.9 Family history of malignant neoplasm, unspecified; Z79.899 Other long term (current) drug therapy
CPT/HCPCS: 43262 ×2; 36415; 74330; 86316; Q9967

== ENCOUNTER → 2020-03-16 17:04 | Outpatient (CLI) | payer MEDICARE, SELFPAY ==
[2020-03-18 11:44] LABS: CA 19-9 44 U/mL (0-35)
== END ==
PROVIDERS: Visit Provider Internal Medicine Gastroenterology
DX: K86.1 Other chronic pancreatitis (principal)
CPT/HCPCS: 36415; 86316

== ENCOUNTER → 2020-03-23 09:12 | Outpatient (CLI) | payer MEDICARE, SELFPAY ==
--- NOTE | 2020-03-23 | MR_ITS ---
PROCEDURE: MR ABDOMEN WO CON CLINICAL INDICATION: CHRONIC PANCREATITIS PT C/O CHRONIC PANCREATITIS WITH BACK PAIN. GB REMOVED 2 YEARS AGO. PRIOR ERCP 03-16-20 COMPARISON: CT CT ABDOMEN PELVIS W CON from 09/04/2019 RF FL ERCP from 03/16/2020 TECHNIQUE: Routine multiplanar multi echo sequences are performed without gadolinium enhancement. CT images also performed FINDINGS: Small cystic areas present in the right hepatic lobe anteriorly 3 mm. Liver has an otherwise unremarkable appearance. There has been a prior cholecystectomy.. No obvious pancreatic mass. Pancreatic duct has a somewhat irregular contour with minimal segmental dilatation in the junction of the head and body of the pancreas. No obvious pancreatic mass. The segmental area dilatation measures 4-5 mm and is about 1 cm in length. In the tail the pancreas there is a small cystic area measuring 5 mm which appears contiguous with the pancreatic duct. In the head of the pancreas there is a cystic area measuring 8 mm which also appears contiguous with the pancreatic duct. This contains a central area of decreased T2 signal. There is an additional 7 mm cystic area in the posterior aspect of the head of the pancreas. This does not appear contiguous with the pancreatic duct the common bile duct is unremarkable. Cystic duct remnant is nondilated. In the uncinate process there is an additional cystic region measuring 8 mm. There is pancreatic divisum. No ductal dilatation of the common bile duct. No common duct stones.. IMPRESSION: 1. Pancreatic divisum 2. Irregularity of the pancreatic duct with segmental dilatation consistent with chronic pancreatitis. 3. Multiple cystic lesions of the pancreas. Some of these are contiguous with the pancreatic head and some are not. This may be result of chronic pancreatitis. Cannot exclude pancreatic IPMNs. Three month MRI follow-up suggested to confirm short term stability. There may be a small stone within a cystic area in the head of the pancreas 4. Dictated by: Triston Dennis MD 03/26/2020 11:17 Triston Dennis MD in [place] 03/26/2020 11:17
== END ==
PROVIDERS: PCP Family Medicine; Visit Provider Internal Medicine Gastroenterology
DX: R10.13 Epigastric pain (principal); K85.90 Acute pancreatitis without necrosis or infection, unspecified
CPT/HCPCS: 74181; 76376

== ENCOUNTER → 2020-05-04 09:38 | Outpatient (CLI) | payer MEDICARE, SELFPAY ==
--- NOTE | 2020-05-04 09:42 | NM_ITS ---
PROCEDURE: NM GASTRIC EMPTYING STUDY CLINICAL INDICATION: NAUSEA AND VOMITING COMPARISON: No exams were available for comparison TECHNIQUE: Dose 0.52 mCi technetium sulfur colloid mixed in radial labeled meal FINDINGS: The actual 1/2 emptying time is 29 minutes which is borderline rapid. Normal is 60+/-30 minutes. 99 percent of the gastric contents had emptied at 273 minutes. Images submitted shows no obvious GE reflux. IMPRESSION: Borderline rapid gastric emptying Dictated by: Triston Dennis MD 05/04/2020 18:28 Triston Dennis MD in [place] 05/04/2020 18:28
--- NOTE | 2020-05-04 13:14 | HMH.ITSHM ---
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 []SIMVASTATIN METOCLOPRAMIDE LIPASE LANSOPRAZOLE VITAMIN D3 BUSPIRONE
== END ==
PROVIDERS: PCP Family Medicine; Visit Provider Internal Medicine Gastroenterology
DX: R11.2 Nausea with vomiting, unspecified (principal)
CPT/HCPCS: 78264; A9541

== ENCOUNTER → 2020-07-03 08:35 | Outpatient (CLI) | payer MEDICARE, SELFPAY | PROVIDERS: PCP Family Medicine; Visit Provider Obstetrics & Gynecology Gynecology | DX: Z11.52 Encounter for screening for COVID-19 (principal) | CPT/HCPCS: U0003 ==

== ENCOUNTER → 2021-01-14 14:05 | Outpatient (CLI) | payer MEDICARE, SELFPAY ==
--- NOTE | 2021-01-14 14:07 | CT_ITS ---
PROCEDURE: CT LUNG SCREENING CLINICAL INDICATION: HX OF NICOTINE DEPENDENCE Former smoker 33 pack year smoking history COMPARISON: CT CT LUNG SCREENING from 09/02/2019 TECHNIQUE: The exam was performed on a GE Light Speed [address] scanner using 2.90 mGy CTDI. A low dose helical CT CHEST was performed on a multi-detector scanner. All CT scans at the facility use one or more dose reduction, viz: automated exposure control, ma/kV adjustment per patient size (including targeted exams where dose is matched to indication, i.e. head), or iterative reconstruction technique. The LDCT was performed in a facility that meets the criteria for the screening program. Data regarding this exam was submitted to ACR which is an approved registry. The order for this exam indicates that it came as a result of a lung cancer screening counseling shard decision-making visit that included all the elements required of such a visit including smoking cessation. The radiologist interpreting this exam meets the [facility] criteria for the LDCT lung cancer screening program. The exam is reported using the Lung-RADS classification scale and reported to the ACR registry. NOTE: This study was performed for the specific purposes of lung cancer screening and is not an alternative to diagnostic chest CT. RADIATION DOSE: CTDI vol(CT dose Index-volume) = 2.90mG DLP (Dose Length Product) = 90.64 mGcm FINDINGS: COPD with centrilobular emphysematous changes and scattered areas of scarring. Old granulomatous disease. Two stable nodular opacities right upper lobe 4 and 5 mm. No suspicious nodule apparent. OTHER FINDINGS: Bovine origin of the left carotid artery as a normal variant. Mild thickening of the pericardium anteriorly at 6 mm. IMPRESSION: Lung-RADS Category 1 Negative Follow-up: Continue annual screening with LDCT in 12 months Other findings as described above. Dictated by: Triston Dennis MD 01/25/2021 08:36 Triston Dennis MD in [place] 01/25/2021 08:36
== END ==
PROVIDERS: PCP Family Medicine; Visit Provider Family Medicine
DX: Z87.891 Personal history of nicotine dependence (principal); Z12.2 Encounter for screening for malignant neoplasm of respiratory organs
CPT/HCPCS: 71271

== ENCOUNTER → 2021-04-27 14:03 | Outpatient (CLI) | payer MEDICARE, SELFPAY ==
[2021-04-27 15:03] LABS: Basophils # 0.1 K/mm3 (0-0.2); Basophils % 0.9 % (0.1-2.0); Eosinophils % 0.4 % (0.1-12.0); Hematocrit 45.3 % (37.0-47.0); Hemoglobin 14.9 g/dL (12.2-16.2); Lymphocytes # 3.3 K/mm3 (0.7-4.5); Lymphocytes % 33.6 % (10-50); Mean Corpuscular HGB Conc 32.9 g/dL (31.8-35.4); Mean Corpuscular Hemoglobin 33.7 pg (27.0-31.2); Mean Corpuscular Volume 102.3 fl (81-99); Monocytes # 4.5 K/mm3 (0.1-1.0); Monocytes % 46.6 % (1.7-9.3); Neutrophils # 1.8 K/mm3 (1.8-7.8); Neutrophils % 18.4 % (37.0-80.0); Platelet Count 309 K/mm3 (142-424); Red Blood Count 4.43 M/mm3 (4.20-5.40); White Blood Count 9.7 K/mm3 (4.8-10.8)
[2021-04-27 15:08] LABS: MANUAL DIFFERENTIAL MANUAL DIFFERENTIAL (MANUAL DIFF)
[2021-04-27 15:52] LABS: Alanine Aminotransferase 18 U/L (12-78); Albumin Level 4.3 g/dl (3.5-5.0); Albumin/Globulin Ratio 1.7 (1.1-1.8); Alkaline Phosphatase 73 U/L (38-126); Amylase 53 U/L (30-110); Anion Gap 10.6 mEq/L (5-15); Aspartate Amino Transferase 23 U/L (14-36); Bilirubin,Total 0.3 mg/dl (0.2-1.3); Blood Urea Nitrogen 12 mg/dl (7-17); Calcium 10.5 mg/dl (8.4-10.2); Carbon Dioxide 28 mmol/L (22.0-30.0); Chloride 107 mmol/L (98-107); Estimated Glomerular Filt Rate 82 ml/min (>60); GFR (African American) 99 ML/MIN (>60); Globulin 2.5 g/dL (1.3-3.2); Glucose 143 mg/dl (74-100); Lipase 87 U/L (23-300); Potassium 4.6 mmoL/L (3.5-5.1); Sodium 141 mmol/L (136-145); Total Protein,Serum 6.8 g/dl (6.3-8.2)
[2021-04-27 16:43] LABS: Lymphocytes % 20 % (10-50); Microcytosis 1+; Monocytes % 29 % (2-9); Neutrophils % 51 % (42-76); Platelet Estimate Normal; Total Cells Counted 100
[2021-04-29 09:26] LABS: CA 19-9 54 U/mL (0-35)
== END ==
PROVIDERS: Visit Provider Internal Medicine Gastroenterology
DX: K86.1 Other chronic pancreatitis (principal); R11.0 Nausea; Q45.3 Other congenital malformations of pancreas and pancreatic duct
CPT/HCPCS: 36415; 80053; 82150; 83690; 85007; 85025; 86316

== ENCOUNTER → 2021-04-28 07:43 | Outpatient (CLI) | payer MEDICARE, SELFPAY ==
[2021-05-01 15:10] LABS: Pancreatic Elastase, Fecal >500 (>200)
== END ==
PROVIDERS: Visit Provider Internal Medicine Gastroenterology
DX: K86.1 Other chronic pancreatitis (principal); R11.0 Nausea; Q45.3 Other congenital malformations of pancreas and pancreatic duct
CPT/HCPCS: 82656

== ENCOUNTER → 2021-12-22 09:05 | Outpatient (CLI) | payer MEDICARE, SELFPAY ==
[2021-12-22 10:00] LABS: Chloride 112 mmol/L (98-107)
[2021-12-22 10:01] LABS: Potassium 4.2 mmoL/L (3.5-5.1); Sodium 141 mmol/L (136-145)
[2021-12-22 10:03] LABS: Alanine Aminotransferase 25 U/L (12-78); Alkaline Phosphatase 77 U/L (38-126); Aspartate Amino Transferase 27 U/L (14-36); Bilirubin,Total 0.5 mg/dl (0.2-1.3); Blood Urea Nitrogen 10 mg/dl (7-17); Estimated Glomerular Filt Rate 70 ml/min (>60); GFR (African American) 85 ML/MIN (>60)
[2021-12-22 10:04] LABS: Albumin Level 4.1 g/dl (3.5-5.0); Albumin/Globulin Ratio 1.8 (1.1-1.8); Anion Gap 9.2 mEq/L (5-15); Calcium 9.9 mg/dl (8.4-10.2); Carbon Dioxide 24 mmol/L (22.0-30.0); Globulin 2.3 g/dL (1.3-3.2); Glucose 126 mg/dl (74-100); Total Protein,Serum 6.4 g/dl (6.3-8.2)
[2021-12-23 09:14] LABS: CA 19-9 54 U/mL (0-35)
== END ==
PROVIDERS: PCP Family Medicine; Visit Provider Physician Assistant Medical
DX: R97.8 Other abnormal tumor markers (principal); K86.1 Other chronic pancreatitis
CPT/HCPCS: 36415; 80053; 86316

== ENCOUNTER → 2022-02-21 08:06 | Outpatient (CLI) | payer MEDICARE, SELFPAY ==
[2022-02-21 08:50] LABS: Basophils # 0.1 K/mm3 (0-0.2); Basophils % 1.7 % (0.1-2.0); Eosinophils # 0.2 K/mm3 (0.0-0.4); Eosinophils % 2.3 % (0.1-12.0); Hematocrit 44.7 % (37.0-47.0); Hemoglobin 14.2 g/dL (12.2-16.2); Lymphocytes # 2.8 K/mm3 (0.7-4.5); Lymphocytes % 41.3 % (10-50); Mean Corpuscular HGB Conc 31.8 g/dL (31.8-35.4); Mean Corpuscular Volume 106.7 fl (81-99); Monocytes # 0.5 K/mm3 (0.1-1.0); Monocytes % 7.3 % (1.7-9.3); Neutrophils # 3.2 K/mm3 (1.8-7.8); Neutrophils % 47.5 % (37.0-80.0); Platelet Count 265 K/mm3 (142-424); Red Blood Count 4.19 M/mm3 (4.20-5.40); Red Cell Distribution Width 13.2 % (11.5-17.5); White Blood Count 6.8 K/mm3 (4.8-10.8)
[2022-02-21 09:48] LABS: Alanine Aminotransferase 24 U/L (12-78); Albumin/Globulin Ratio 1.7 (1.1-1.8); Alkaline Phosphatase 98 U/L (38-126); Amylase 52 U/L (30-110); Anion Gap 10.1 mEq/L (5-15); Aspartate Amino Transferase 25 U/L (14-36); Bilirubin,Total 0.4 mg/dl (0.2-1.3); Blood Urea Nitrogen 15 mg/dl (7-17); Calcium 9.9 mg/dl (8.4-10.2); Carbon Dioxide 26 mmol/L (22.0-30.0); Chloride 109 mmol/L (98-107); Estimated Glomerular Filt Rate 61 ml/min (>60); GFR (African American) 74 ML/MIN (>60); Globulin 2.3 g/dL (1.3-3.2); Glucose 130 mg/dl (74-100); Lipase 62 U/L (23-300); Potassium 4.1 mmoL/L (3.5-5.1); Sodium 141 mmol/L (136-145); Total Protein,Serum 6.3 g/dl (6.3-8.2)
[2022-02-21 22:52] LABS: Vitamin B12 524 pg/mL (239-931)
[2022-02-22 10:14] LABS: CA 19-9 44 U/mL (0-35)
== END ==
PROVIDERS: PCP Family Medicine; Visit Provider Internal Medicine Gastroenterology
DX: Q45.3 Other congenital malformations of pancreas and pancreatic duct (principal); R97.0 Elevated carcinoembryonic antigen [CEA]; R11.0 Nausea; R14.2 Eructation; R68.81 Early satiety
CPT/HCPCS: 36415; 80053; 82150; 82607; 83690; 85025; 86316

== ENCOUNTER → 2022-03-28 13:28 | Outpatient (CLI) | payer MEDICARE, SELFPAY ==
--- NOTE | 2022-03-28 13:31 | CT_ITS ---
FINAL REPORT CLINICAL HISTORY: PERSONAL HISTORY OF NICOTINE DEPENDANCE. Former smoker, quit 1 month ago. smoked half pack x 35 years. Emphysema . no family hx COMPARISON: September 02, 2019 and January 14, 2021 FINDINGS: Low-Dose Chest CT Axial images were obtained from the lung apex to the mid abdomen by computed tomography. Low-dose protocol was utilized. CTDI vol (mGy): 2.90 DLP (mGy-cm): 102.90 There is no axillary adenopathy. There is no hilar or mediastinal adenopathy. The heart is proper size. There is no pericardial or pleural effusion. Limited images of the upper abdomen are unremarkable. Lung window images demonstrate no suspicious infiltrate or nodule. There are a few calcified granulomas. There is right lower lobe atelectasis. There is underlying and emphysema. There is a small hiatal hernia. IMPRESSION: Lung RADS category 1. Recommend 12 month follow-up low-dose chest CT. Reviewed, Interpreted and Dictated by Myra Quintanilla MD Transcribed by Holly Lopez Authenticated and [facility]
== END ==
PROVIDERS: PCP Family Medicine; Visit Provider Family Medicine
DX: Z87.891 Personal history of nicotine dependence (principal); Z12.2 Encounter for screening for malignant neoplasm of respiratory organs
CPT/HCPCS: 71271

== ENCOUNTER → 2022-04-18 08:39 | Outpatient (CLI) | payer MEDICARE, SELFPAY ==
--- NOTE | 2022-04-18 08:46 | XR_ITS ---
FINAL REPORT TECHNIQUE: Bone densitometry calculations of the lumbar spine and left hip were obtained. CLINICAL HISTORY: . screening COMPARISON: December 03, 2019 FINDINGS: DEXA BONE DENSITY AXIAL SKELETON Using L1-4, the bone mineral density of the spine is 0.943 g/cm2, corresponding to T-score of -0.9. Previously measured 0.887 g/cm2, corresponding to T-score of -1.5. Using the left hip, the bone mineral density of the femoral neck is 0.671 g/cm2, corresponding to a T-score of -2.2. Previously measured 0.657 g/cm2, corresponding to T-score of -2.3. NOTE: T-score: Standard deviation compared with peak bone mass of young adult mean. *Following the recommendations of the International Society of Bone densitometry, classification of hip BMD is based on the lower of two T-scores; total hip or femoral neck. IMPRESSION: Diminished bone mineral density of the lumbar spine and left hip consistent with osteopenia. FRAX 10 year fracture risk is 9.8% for a hip fracture and 19% for a major osteoporotic fracture. Reviewed, Interpreted and Dictated by Calvin Salcido III, MD Transcribed by Holly Lopez Authenticated and [facility]
== END ==
PROVIDERS: PCP Family Medicine; Visit Provider Family Medicine
DX: Z78.0 Asymptomatic menopausal state (principal); M85.89 Other specified disorders of bone density and structure, multiple sites
CPT/HCPCS: 77080

== ENCOUNTER → 2022-07-18 11:40 | Outpatient (CLI) | payer MEDICARE, SELFPAY ==
[2022-07-18 12:29] LABS: Basophils # 0.1 K/mm3 (0-0.2); Basophils % 0.6 % (0.1-2.0); Eosinophils # 0.1 K/mm3 (0.0-0.4); Eosinophils % 0.7 % (0.1-12.0); Hematocrit 43.9 % (37.0-47.0); Hemoglobin 14.4 g/dL (12.2-16.2); Lymphocytes # 3.1 K/mm3 (0.7-4.5); Lymphocytes % 32.2 % (10-50); Mean Corpuscular HGB Conc 32.8 g/dL (31.8-35.4); Mean Corpuscular Hemoglobin 33.5 pg (27.0-31.2); Mean Platelet Volume 8.2 fl (7.4-10.4); Monocytes # 0.4 K/mm3 (0.1-1.0); Monocytes % 4.6 % (1.7-9.3); Neutrophils # 5.9 K/mm3 (1.8-7.8); Platelet Count 310 K/mm3 (142-424); Red Blood Count 4.31 M/mm3 (4.20-5.40); Red Cell Distribution Width 12.9 % (11.5-17.5); White Blood Count 9.5 K/mm3 (4.8-10.8)
[2022-07-18 13:03] LABS: Chloride 109 mmol/L (98-107); Potassium 4.8 mmoL/L (3.5-5.1); Sodium 144 mmol/L (136-145)
[2022-07-18 13:06] LABS: Alanine Aminotransferase 19 U/L (12-78); Alkaline Phosphatase 88 U/L (38-126); Amylase 52 U/L (30-110); Anion Gap 11.8 mEq/L (5-15); Aspartate Amino Transferase 26 U/L (14-36); Bilirubin,Total 0.4 mg/dl (0.2-1.3); Blood Urea Nitrogen 11 mg/dl (7-17); Calcium 10.2 mg/dl (8.4-10.2); Carbon Dioxide 28 mmol/L (22.0-30.0); Estimated Glomerular Filt Rate 61 ml/min (>60); GFR (African American) 74 ML/MIN (>60); Glucose 92 mg/dl (74-100); Lipase 50 U/L (23-300)
[2022-07-18 13:07] LABS: Albumin Level 4.4 g/dl (3.5-5.0); Albumin/Globulin Ratio 1.8 (1.1-1.8); Globulin 2.5 g/dL (1.3-3.2); Total Protein,Serum 6.9 g/dl (6.3-8.2)
[2022-07-19 10:50] LABS: CA 19-9 52 U/mL (0-35)
== END ==
PROVIDERS: PCP Family Medicine; Visit Provider Internal Medicine Gastroenterology
DX: K86.1 Other chronic pancreatitis (principal); R11.0 Nausea; Q45.3 Other congenital malformations of pancreas and pancreatic duct; Z86.010 Personal history of colon polyps; R97.0 Elevated carcinoembryonic antigen [CEA]
CPT/HCPCS: 36415; 80053; 82150; 83690; 85025; 86316

== ENCOUNTER → 2022-09-22 10:19 | Outpatient (CLI) | payer MEDICARE, SELFPAY ==
[2022-09-22 11:05] LABS: Basophils # 0.1 K/mm3 (0-0.2); Basophils % 0.8 % (0.1-2.0); Eosinophils # 0.1 K/mm3 (0.0-0.4); Eosinophils % 1.3 % (0.1-12.0); Hemoglobin 14.4 g/dL (12.2-16.2); Lymphocytes # 2.6 K/mm3 (0.7-4.5); Lymphocytes % 30.2 % (10-50); Mean Corpuscular HGB Conc 32.6 g/dL (31.8-35.4); Mean Corpuscular Hemoglobin 33.2 pg (27.0-31.2); Mean Corpuscular Volume 101.7 fl (81-99); Mean Platelet Volume 8.2 fl (7.4-10.4); Monocytes # 0.8 K/mm3 (0.1-1.0); Neutrophils % 58.6 % (37.0-80.0); Platelet Count 259 K/mm3 (142-424); Red Blood Count 4.33 M/mm3 (4.20-5.40); Red Cell Distribution Width 13.1 % (11.5-17.5); White Blood Count 8.6 K/mm3 (4.8-10.8)
[2022-09-22 12:09] LABS: Alanine Aminotransferase 19 U/L (12-78); Albumin Level 4.4 g/dl (3.5-5.0); Albumin/Globulin Ratio 1.9 (1.1-1.8); Alkaline Phosphatase 80 U/L (38-126); Amylase 63 U/L (30-110); Anion Gap 13.2 mEq/L (5-15); Aspartate Amino Transferase 23 U/L (14-36); Bilirubin,Total 0.5 mg/dl (0.2-1.3); Blood Urea Nitrogen 14 mg/dl (7-17); Calcium 9.9 mg/dl (8.4-10.2); Carbon Dioxide 26 mmol/L (22.0-30.0); Chloride 106 mmol/L (98-107); Estimated Glomerular Filt Rate 54 ml/min (>60); GFR (African American) 66 ML/MIN (>60); Globulin 2.3 g/dL (1.3-3.2); Glucose 101 mg/dl (74-100); Lipase 181 U/L (23-300); Potassium 4.2 mmoL/L (3.5-5.1); Sodium 141 mmol/L (136-145); Total Protein,Serum 6.7 g/dl (6.3-8.2)
[2022-09-24 08:20] LABS: CA 19-9 51 U/mL (0-35)
== END ==
PROVIDERS: PCP Internal Medicine Gastroenterology; Visit Provider Family Medicine
DX: K86.1 Other chronic pancreatitis (principal); R11.0 Nausea; Q45.3 Other congenital malformations of pancreas and pancreatic duct; Z86.010 Personal history of colon polyps
CPT/HCPCS: 36415; 80053; 82150; 83690; 85025; 86316

== ENCOUNTER → 2023-04-18 10:41 | Outpatient (CLI) | payer MEDICARE, SELFPAY ==
[2023-04-18 11:24] LABS: Basophils % 0.5 % (0.1-2.0); Eosinophils # 0.1 K/mm3 (0.0-0.4); Eosinophils % 0.9 % (0.1-12.0); Hematocrit 41.2 % (37.0-47.0); Hemoglobin 14.3 g/dL (12.2-16.2); Lymphocytes # 2.3 K/mm3 (0.7-4.5); Lymphocytes % 30.2 % (10-50); Mean Corpuscular HGB Conc 34.8 g/dL (31.8-35.4); Mean Corpuscular Hemoglobin 34.9 pg (27.0-31.2); Mean Corpuscular Volume 100.4 fl (81-99); Mean Platelet Volume 7.5 fl (7.4-10.4); Monocytes # 0.2 K/mm3 (0.1-1.0); Monocytes % 3.1 % (1.7-9.3); Neutrophils % 65.2 % (37.0-80.0); Platelet Count 227 K/mm3 (142-424); White Blood Count 7.6 K/mm3 (4.8-10.8)
[2023-04-18 11:37] LABS: Chloride 110 mmol/L (98-107); Potassium 3.8 mmoL/L (3.5-5.1); Sodium 140 mmol/L (136-145)
[2023-04-18 11:40] LABS: Alanine Aminotransferase 22 U/L (12-78); Alkaline Phosphatase 87 U/L (38-126); Amylase 42 U/L (30-110); Anion Gap 10.8 mEq/L (5-15); Aspartate Amino Transferase 27 U/L (14-36); Bilirubin,Total 0.5 mg/dl (0.2-1.3); Blood Urea Nitrogen 11 mg/dl (7-17); Calcium 9.7 mg/dl (8.4-10.2); Carbon Dioxide 23 mmol/L (22.0-30.0); Estimated Glomerular Filt Rate 61 ml/min (>60); GFR (African American) 74 ML/MIN (>60); Glucose 106 mg/dl (74-100); Iron 137 ug/dL (37-170); Lipase 50 U/L (23-300)
[2023-04-18 11:41] LABS: Albumin/Globulin Ratio 1.5 (1.1-1.8); Globulin 2.6 g/dL (1.3-3.2); Total Protein,Serum 6.6 g/dl (6.3-8.2)
[2023-04-18 11:50] LABS: Total Iron Binding Capacity 331 ug/dL (265-497)
[2023-04-18 12:16] LABS: Ferritin 33.3 ng/ml (11.1-264)
[2023-04-18 12:52] LABS: Vitamin B12 873 pg/mL (239-931)
[2023-04-19 10:55] LABS: CA 19-9 48 U/mL (0-35)
== END ==
LOC: LAB 10:42
PROVIDERS: PCP Family Medicine; Visit Provider Internal Medicine Gastroenterology
DX: K86.1 Other chronic pancreatitis (principal); R97.8 Other abnormal tumor markers; Q45.3 Other congenital malformations of pancreas and pancreatic duct; R11.0 Nausea; K59.00 Constipation, unspecified; K22.70 Barrett's esophagus without dysplasia; Z80.0 Family history of malignant neoplasm of digestive organs; Z86.010 Personal history of colon polyps
CPT/HCPCS: 36415; 80053; 82150; 82607; 82728; 83540; 83550; 83690; 85025; 86316

== ENCOUNTER → 2023-04-21 08:43 | Outpatient (CLI) | payer MEDICARE, SELFPAY ==
--- NOTE | 2023-04-21 08:47 | CT_ITS ---
FINAL REPORT TECHNIQUE: Pre- and postcontrast images of the abdomen were performed by computed tomography. This study was performed with techniques to keep radiation doses as low as reasonably achievable (ALARA). Individualized dose reduction techniques using automated exposure control or adjustment of mA and/or kV according to the patient's size were employed. CLINICAL HISTORY: CHRONIC PANCREATITIS,NAUSEA,BARRETTS ESOPHAGUS, COMPARISON: 09/04/2019 FINDINGS: There is scarring at the lung bases. Patient is status postcholecystectomy. The liver is normal in size and attenuation. The spleen is unremarkable. The adrenals are normal. Several calcifications are seen at the pancreatic head consistent with chronic pancreatitis. There is a fluid collection in the inferior pancreatic head measuring 10 mm which is stable and may represent a small pseudocyst. There is mild, nonspecific but stable pancreatic ductal dilatation. The kidneys enhance appropriately. 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 Stable, chronic findings as above. Reviewed, Interpreted and Dictated by Calvin Salcido III, MD Transcribed by Rosi Harvey Authenticated and [facility]
== END ==
PROVIDERS: PCP Family Medicine; Visit Provider Internal Medicine Gastroenterology
DX: K86.1 Other chronic pancreatitis (principal); R97.8 Other abnormal tumor markers; Q45.3 Other congenital malformations of pancreas and pancreatic duct; R11.0 Nausea; K59.00 Constipation, unspecified; K22.70 Barrett's esophagus without dysplasia; Z86.010 Personal history of colon polyps; Z80.0 Family history of malignant neoplasm of digestive organs
CPT/HCPCS: 74170; Q9967

== ENCOUNTER → 2023-05-19 14:31 | Outpatient (CLI) | payer MEDICARE, SELFPAY ==
--- NOTE | 2023-05-19 14:35 | CT_ITS ---
FINAL REPORT CLINICAL HISTORY: H/O TOBACCO USE CURRENT SMOKER 1PPD X25 YEARS COMPARISON: 03/28/2022 FINDINGS: CT CHEST LOW DOSE SCREENING HISTORY: Screening exam for lung cancer. 73-year-old female, Current smoker, 25 pack year smoking history DOSE: CTDIvol: 2.9 mGy, DLP: 96.38 mGy*cm COMPARISON: 03/28/2022. TECHNIQUE: Axial CT without IV contrast administration using low dose protocol FINDINGS: No acute lung disease is present . There is a new 3 mm left upper lobe nodule seen best on axial image #33 of series 4. No other nodules or focal masses are identified. No pleural or pericardial effusion is seen . No adenopathy or mass lesion is present . IMPRESSION: New 3 mm nodule left upper lobe when compared to the prior CT of March 2022. LUNG RADS CATEGORY 2 RECOMMENDATION: 12 month LDCT follow up Reviewed, Interpreted and Dictated by Paul Aleman MD Transcribed by Melanie Bey Authenticated and [facility]
== END ==
PROVIDERS: PCP Family Medicine; Visit Provider Family Medicine
DX: Z87.891 Personal history of nicotine dependence (principal); Z12.2 Encounter for screening for malignant neoplasm of respiratory organs
CPT/HCPCS: 71271

== ENCOUNTER 2023-11-06 08:07 | Outpatient (CLI) | payer MEDICARE, SELFPAY ==
[2023-11-06 08:53] LABS: Basophils # 0.1 K/mm3 (0-0.2); Basophils % 0.9 % (0.1-2.0); Eosinophils # 0.2 K/mm3 (0.0-0.4); Eosinophils % 2.6 % (0.1-12.0); Hematocrit 45.3 % (37.0-47.0); Hemoglobin 15.2 g/dL (12.2-16.2); Lymphocytes # 3.2 K/mm3 (0.7-4.5); Lymphocytes % 38.7 % (10-50); Mean Corpuscular HGB Conc 33.5 g/dL (31.8-35.4); Mean Corpuscular Hemoglobin 34.5 pg (27.0-31.2); Mean Corpuscular Volume 103.2 fl (81-99); Mean Platelet Volume 7.8 fl (7.4-10.4); Monocytes # 0.4 K/mm3 (0.1-1.0); Monocytes % 4.9 % (1.7-9.3); Neutrophils # 4.4 K/mm3 (1.8-7.8); Neutrophils % 52.9 % (37.0-80.0); Platelet Count 281 K/mm3 (142-424); Red Blood Count 4.39 M/mm3 (4.20-5.40); Red Cell Distribution Width 13.5 % (11.5-17.5); White Blood Count 8.3 K/mm3 (4.8-10.8)
[2023-11-06 10:16] LABS: Alanine Aminotransferase 17 U/L (12-78); Albumin Level 4.3 g/dl (3.5-5.0); Albumin/Globulin Ratio 1.9 (1.1-1.8); Alkaline Phosphatase 94 U/L (38-126); Amylase 46 U/L (30-110); Anion Gap 11.8 mEq/L (5-15); Aspartate Amino Transferase 21 U/L (14-36); Bilirubin,Total 0.7 mg/dl (0.2-1.3); Blood Urea Nitrogen 13 mg/dl (7-17); Calcium 10.3 mg/dl (8.4-10.2); Carbon Dioxide 25 mmol/L (22.0-30.0); Chloride 108 mmol/L (98-107); Estimated Glomerular Filt Rate 54 ml/min (>60); GFR (African American) 65 ML/MIN (>60); Globulin 2.3 g/dL (1.3-3.2); Glucose 102 mg/dl (74-100); Lipase 69 U/L (23-300); Potassium 3.8 mmoL/L (3.5-5.1); Sodium 141 mmol/L (136-145); Total Protein,Serum 6.6 g/dl (6.3-8.2)
[2023-11-06 11:04] LABS: Vitamin B12 938 pg/mL (239-931)
[2023-11-07 08:26] LABS: CA 19-9 49 U/mL (0-35)
== END 2023-11-06 23:59 | disposition home or self-care (01) ==
LOC: LAB 08:08
PROVIDERS: PCP Family Medicine; Visit Provider Internal Medicine Gastroenterology
DX: R11.0 Nausea (principal); R97.8 Other abnormal tumor markers; K86.1 Other chronic pancreatitis
CPT/HCPCS: 36415; 80053; 82150; 82607; 83690; 85025; 86301

== ENCOUNTER 2024-03-05 15:11 | Outpatient (CLI) | payer MEDICARE, SELFPAY | END 2024-03-05 23:59 | disposition home or self-care (01) | LOC: LAB.DROPOF 03-06 15:11 | PROVIDERS: PCP Nurse Practitioner; Visit Provider Nurse Practitioner | DX: B35.1 Tinea unguium (principal) | CPT/HCPCS: 87102; 87206; 87220 ==

== ENCOUNTER 2024-04-08 09:02 | Outpatient (CLI) | payer MEDICARE, SELFPAY ==
--- NOTE | 2024-04-08 09:05 | XR_ITS ---
FINAL REPORT TECHNIQUE: Bone mineral density was calculated of the lumbar spine and hip. CLINICAL HISTORY: SCREENING COMPARISON: 04/18/2022 FINDINGS: Using L1-4, the bone mineral density of the spine is 0.912 g/cm2, corresponding to T-score of -1.2. Using the hip, the bone mineral density of the femoral neck is 0.693 g/cm2, corresponding to a T-score of -2.1. NOTE: T-score: Standard deviation compared with peak bone mass of young adult mean. *Following the recommendations of the International Society of Bone densitometry, classification of hip BMD is based on the lower of two T-scores; total hip or femoral neck. IMPRESSION: Diminished bone mineral density of the lumbar spine and left hip consistent with osteopenia. Reviewed, Interpreted and Dictated by Calvin Salcido III, MD Transcribed by Melanie Bey Authenticated and [facility]
== END 2024-04-08 23:59 | disposition home or self-care (01) ==
LOC: RAD 09:02
PROVIDERS: PCP Family Medicine; Visit Provider Family Medicine
DX: M85.88 Other specified disorders of bone density and structure, other site (principal)
CPT/HCPCS: 77080

== ENCOUNTER 2024-04-30 13:47 | Outpatient (CLI) | payer MEDICARE, SELFPAY ==
--- NOTE | 2024-04-30 | XR_ITS ---
PROCEDURE INFORMATION: Exam: XR Left Foot Exam date and time: 04/30/2024 2:00 PM Age: 74 years old Clinical indication: Pain; Foot; Left; Additional info: Unspecified injury of unspecified foot TECHNIQUE: Imaging protocol: Radiologic exam of the left foot. Views: 3 or more views. COMPARISON: CR XR ANKLE LT MIN 3V 04/30/2024 2:00 PM FINDINGS: Bones/joints: There is normal anatomic alignment of the bones of the left foot. No fracture or destructive bone lesion. Soft tissues: There is soft tissue swelling along the dorsum of the left foot. No radiopaque foreign body or gas in the soft tissues. IMPRESSION: Left foot soft tissue swelling without fracture.
--- NOTE | 2024-04-30 13:55 | XR_ITS ---
PROCEDURE INFORMATION: Exam: XR Left Ankle Exam date and time: 04/30/2024 2:00 PM Age: 74 years old Clinical indication: Pain; Ankle; Left; Additional info: Unspecified injury of unspecified foot TECHNIQUE: Imaging protocol: Radiologic exam of the left ankle. Views: 3 or more views. COMPARISON: CR XR ANKLE LT MIN 3V 04/30/2024 2:00 PM FINDINGS: Bones/joints: Normal. No fracture or destructive bone lesion. Soft tissues: Mild soft tissue swelling along the lateral left ankle. No radiopaque foreign body or gas in the soft tissues. IMPRESSION: Left ankle soft tissue swelling but no fracture identified.
== END 2024-04-30 23:59 | disposition home or self-care (01) ==
LOC: RAD 13:48
PROVIDERS: PCP Family Medicine; Visit Provider Family Medicine
DX: S99.922A Unspecified injury of left foot, initial encounter (principal)
CPT/HCPCS: 73610; 73630

== ENCOUNTER 2024-05-03 12:03 | Outpatient (RCR) | payer MEDICARE, SELFPAY | END 2024-05-03 23:59 | disposition home or self-care (01) | LOC: PT 12:03 | PROVIDERS: Visit Provider Family Medicine | DX: M25.572 Pain in left ankle and joints of left foot (principal); S93.402D Sprain of unspecified ligament of left ankle, subsequent encounter | CPT/HCPCS: 97760 ==

== ENCOUNTER 2024-05-20 12:30 | Outpatient (CLI) | payer MEDICARE, SELFPAY ==
--- NOTE | 2024-05-20 12:32 | CT_ITS ---
FINAL REPORT TECHNIQUE: Axial CT images of the chest were obtained without contrast. Low-dose protocol was utilized. This study was performed with techniques to keep radiation doses as low as reasonably achievable (ALARA). Individualized dose reduction techniques using automated exposure control or adjustment of mA and/or kV according to the patient's size were employed. CLINICAL HISTORY: .current smoker 1ppd x30 years COMPARISON: 05/19/2023 FINDINGS: CT CHEST WITHOUT, LOW DOSE SCREENING CT Di Vol: 2.90 mGy DLP: 113.33 mGy*cm There is no axillary, mediastinal, or hilar adenopathy. The heart size is normal. 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 There is no pleural or pericardial effusion. The lung windows show a calcified granuloma in the right upper lobe. There is a tiny nodule in the posterior right upper lobe measuring 3 mm on image 63 series 6 which is stable. There is also a stable left upper lobe 3 mm nodule on image 132 of series 6. There is no new nodule identified. Scarring is noted at the lung bases. Limited images of the upper abdomen demonstrate no acute findings. IMPRESSION: Stable bilateral pulmonary nodules. LR Category 2: 12 month follow-up low-dose chest CT is recommended per Fleischner criteria. Reviewed, Interpreted and Dictated by Paul Aleman MD Transcribed by Alecia Engel Authenticated and [facility]
== END 2024-05-20 23:59 | disposition home or self-care (01) ==
LOC: RAD 12:30
PROVIDERS: PCP Family Medicine; Visit Provider Family Medicine
DX: Z87.891 Personal history of nicotine dependence (principal); Z12.2 Encounter for screening for malignant neoplasm of respiratory organs
CPT/HCPCS: 71271

== ENCOUNTER 2024-06-05 09:00 | Outpatient (RCR) | payer MEDICARE, SELFPAY ==
--- NOTE | 2024-05-06 10:57 | HMH.PTOPEV ---
PT Outpatient Evaluation Rehab PT Outpatient Evaluation Start: 05/06/24 10:33 Freq: Status: Active Protocol: Document 05/06/24 10:33 JAKUB (Rec: 05/06/24 10:57 JAKUB [id number]) E-signed By Ilya Arita, PT Outpatient Therapy Subjective History Subjective History Pt reports injury to left ankle/foot occurred on , caused by a fall down basement steps at home. Pt reports 'I believe it rolled in when I fell,' reports today most of the pain located on dorsal aspect of left foot and globally from medial to lateral left ankle jt line. Pt reports left ankle stiffness, pain, weakness, and swelling. Pt reports 'walking boot is definitely helping me get around, but I need to be a lot better to be back to normal.' New diagnosis of cancer in past 12 No months? Chief Complaint Pain,Stiff,Swelling,Weakness Symptom Type Ache,Throb,Sharp,Dull Symptoms Relieved By Rest/Positioning,Ice Symptoms Aggravated By Standing,Physical Activity, Walking Prior Functional Limitations None Current Functional Limitations Housework,Standing,Walking, Stairs Symptom Description Constant but Variable Level of pain today (0-10) 5 Pain scale - at its best (0-10) 3 Pain scale - at its worst (0-10) 8 Ankle/Foot Eval Gait Observation General Gait Pattern Observation Antalgic Gait Palpation Tenderness left Ankle/Foot Palpation Findings Tenderness Ankle/Foot Palpation Overall Comment 3/4 globally dorsum of left foot, medial and lateral ankle jt line ATF TTP positive PTF TTP positive CF TTP positive Deltoid ligament TTP positive ROM Ankle/Foot Dorsiflexion w/Knee Extended 0-10 Active Range Motion (degrees) Ankle/Foot Plantar Flexion Active Range 0-30 of Motion (degrees) Ankle/Foot Eversion Active Range of 0-12 Motion (degrees) Ankle/Foot Inversion Active Range of 0-25 Motion (degrees) Ankle/Foot ROM Limitations Soft Tissue Tightness,Pain MMT Ankle Dorsiflexion Strength Grade 4- Good- Ankle Plantarflexion Strength Grade 4- Good- Foot Eversion Strength Grade 3+ Fair+ Foot Inversion Strength Grade 3+ Fair+ Special Tests Ankle Anterior Drawer Test Positive Left Ankle Eversion Test Positive Left Talar Tilt Test Positive Left Ankle Inversion (supination) Test Positive Left Foot Compression Test Negative Left Lower Extremity Functional Index Activities Today, do you or would you have any difficulty at all with: a.Any of your usual work, housework or Quite a bit of difficulty school activities b. Your usual hobbies, recreational or Quite a bit of difficulty sporting activities c. Getting into or out of the bath Quite a bit of difficulty d. Walking between rooms Quite a bit of difficulty e. Putting on your shoes or socks Quite a bit of difficulty f. Squatting Quite a bit of difficulty g. Lifting an object, like a bag of Moderate difficulty groceries from the floor h. Performing light activities around Quite a bit of difficulty your home i. Performing heavy activities around Quite a bit of difficulty your home j. Getting into or out of a car Quite a bit of difficulty k. Walking 2 blocks Quite a bit of difficulty l. Walking a mile Extreme difficulty or unable to perform activity m. Going up or down 10 stairs (about 1 Extreme difficulty or unable flight of stairs) to perform activity n. Standing for 1 hour Extreme difficulty or unable to perform activity o. Sitting for 1 hour Quite a bit of difficulty p. Running on even ground Extreme difficulty or unable to perform activity q. Running on uneven ground Extreme difficulty or unable to perform activity r. Making sharp turns while running fast Extreme difficulty or unable to perform activity s. Hopping Extreme difficulty or unable to perform activity t. Rolling over in bed Moderate difficulty LEFI Score Lower Extremity Functional Index Score 15 Outpatient Therapy Assessment Impairments Problems/Impairmments Palpation Tenderness,Impaired Range of Motion,Impaired Strength,Impaired Gait Pattern ,Impaired Walking,Impaired Standing,Impaired Household Care,Increased Edema, Subjective C/O Pain,Impaired Self Care/Self Management Prognosis Rehab Potential Good Clinical Impression Consistent with Diagnosis Yes Short Term Goals Number of Weeks 4 Decreased Palpation Tenderness Yes: 1-2/4 left ankle/foot Increase Range of Motion Yes: 50-75% of WFL LEFT ANKLE AROM Increase Strength Yes: 3+-4/5 LEFT ANKLE MM Improve Gait Pattern with Assistive Yes: WFL ON LEVEL TERRAIN W/ Device WALKING BOOT Increase Ability to Walk Yes: 15MIN Increase Ability to Stand Yes: 15MIN Improve LEFI Score Yes: 20-25 Decrease Subjective C/O Pain Yes: 3-4/10 W/ABOVE ACTIVITIES Patient to be Ind w/ HEP Yes Boring Machine Set Up Operator Jig Goals Number of Weeks 8-10 Decreased Palpation Tenderness Yes: 0-1/4 LEFT ANKLE/FOOT Increase Range of Motion Yes: WFL LEFT ANKLE AROM Increase Strength Yes: 4+-5/5 LEFT ANKLE MM Improve Gait Pattern without Assistive Yes: WFL ON LEVEL TERRAIN Device Increase Ability to Walk Yes: 30MIN Increase Ability to Stand Yes: 30MIN Improve Ability For Household Care Yes: 30MIN Improve Ability to Climb Stairs Yes: WFL HHAX1-2 Improve LEFI Score Yes: 45-50 Decrease Subjective C/O Pain Yes: 0-2/10 W/ABOVE ACTIVITIES Patient to be Ind w/ Advanced HEP Yes Outpatient Therapy Plan of Care Treatment Plan May Include Therapeutic Exercise Including Home Yes Exercise Program Manual Therapy Techniques Yes Neuromuscular Re-education Yes Therapeutic Activities to Return to Yes Previous Functional/Work Level Gait Training Yes ADL/Self Care Education Yes Dry Needling Yes Thermal Modalities Yes Electrical Stimulation Yes Ultrasound/Phonophoresis Yes Iontophoresis Yes Orthotics/Bracing/Splinting Yes Vasopneumatic Compression Pump Yes Manual Lymphatic Drainage Yes Eval/Re-Eval Yes Frequency Times per week 2-3 Duration Number of Weeks 8-10 Addendums This patient is a candidate for social No or vocational rehab? Patient/Guardian verbally acknowledges Yes understanding of treatment program and consents to further treatment? Patient/Guardian verbally acknowledges Yes understanding of diagnosis, prognosis and goals for treatment? Eval Complexity PT Charges 41267 - Moderate Complexity Shoulder/Elbow Eval Shoulder Objective Measurements Elbow Objective Measurements PHYSICIAN CERTIFICATION: I certify the specified therapy services for Darlene Saab are required, authorized, and reviewed every 30 days.
--- NOTE | 2024-06-03 09:53 | HMH.RHREAS ---
Rehab Reassessment Rehab OP Re-assessment Start: 05/06/24 10:33 Freq: Status: Active Protocol: Document 06/03/24 09:25 DREADALIS (Rec: 06/03/24 09:52 JAKUB [id number]) E-signed By Ilya Arita, PT Lower Extremity Functional Index Activities Today, do you or would you have any difficulty at all with: a.Any of your usual work, housework or No difficulty school activities b. Your usual hobbies, recreational or No difficulty sporting activities c. Getting into or out of the bath No difficulty d. Walking between rooms No difficulty e. Putting on your shoes or socks No difficulty f. Squatting No difficulty g. Lifting an object, like a bag of No difficulty groceries from the floor h. Performing light activities around No difficulty your home i. Performing heavy activities around No difficulty your home j. Getting into or out of a car No difficulty k. Walking 2 blocks No difficulty l. Walking a mile A little bit of difficulty m. Going up or down 10 stairs (about 1 No difficulty flight of stairs) n. Standing for 1 hour No difficulty o. Sitting for 1 hour No difficulty p. Running on even ground Moderate difficulty q. Running on uneven ground Moderate difficulty r. Making sharp turns while running fast Moderate difficulty s. Hopping Moderate difficulty t. Rolling over in bed No difficulty LEFI Score Lower Extremity Functional Index Score 71 Rehab Re-assessment Subjective Subjective Pt reports 2/10 left foot/ ankle pain on VAS this am, and feels 95% better overall since I Eval Objective Objective Notes AROM: LEFT ANKLE DF 0-12, PF 0 -35, INV 0-31, EVR 0-18 MMT: LEFT ANKLE DF 5/5, PF 4+/ 5, INV 4-4+/5, EVR 4-4+/5 TTP: LEFT FOOT AND ANKLE 0/4 GLOBALLY GAIT: WFL ON LEVEL TERRAIN LEF SCORE: 71 VS 15 ON I EVAL Assessment Progress Assessment Progressing as Expected Assessment Notes Significantly improved left ankle and foot strength, TTP, ROM, and gait pattern since I eval. Patient goals met STG'S 03/11 LTG'S 04/12 Goals Not Met LTG'S 07/13-STRENGTH Plan Plan Pt to D/C following next skilled P.T. appt if functional improvements are maintained and pt is again able to make progressions w/TA 's and TE's Frequency of Therapy 1x/wk Duration of therapy 1-2wks Time and Billing Re-Eval Time 14 Re-Eval Billing Units 1 Charge for PT reassessment? Yes PHYSICIAN CERTIFICATION: I certify the specified therapy services for Darlene Saab are required, authorized, and reviewed every 30 days.
== END 2024-06-05 23:59 | disposition home or self-care (01) ==
LOC: PT 09:00
PROVIDERS: PCP Family Medicine; Visit Provider Family Medicine
DX: M79.672 Pain in left foot (principal); S99.922A Unspecified injury of left foot, initial encounter
CPT/HCPCS: 97014; 97016; 97035; 97110; 97112; 97140; 97163; 97164; G0283

== ENCOUNTER 2024-06-20 06:58 | Day surgery (SDC) | payer MEDICARE, SELFPAY ==
[2024-06-20 07:16] VITALS: BP 119/82; PULSE 71; RESP 16; TEMP 36.6; O2SAT 98; BMI 20.3
[2024-06-20] MEDS: LACTATED RINGERS 1000ML 1,000 ML 25 ML IV (07:24)
--- NOTE | 2024-06-20 07:29 | EXP.ANES.CKL ---
[facility] Disclaimer: The information contained in this section may have been updated after the patient was seen, as this information can be updated by other users. Medical History (Updated 06/20/24 @ 07:12 by Carli Santa) Skin cancer Internal hemorrhoids High cholesterol GERD (gastroesophageal reflux disease) Diverticulosis Colon polyps Barretts esophagus Surgical History History of colon resection Family History (Updated 06/20/24 @ 07:12 by Carli Santa) Other No significant family history Social History (Updated 06/20/24 @ 07:13 by Carli Santa) Smoking Status: Former smoker tobacco type: cigarettes packs per day: 1 second hand exposure: No alcohol intake: never substance use type: other current occupational status: retired Travel in the last 8 weeks: None household members: spouse housing: house 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 current occupational exposures/hazards: No caffeine: No Have you lived/traveled outside [place] in past 30 days?: No Contact w/someone who lives/traveled outside US past 30 days?: No Exposure to someone with infectious disease in past 14 days?: No Do you have a fever (greater than 100.4 F or 38 C)?: No Have you tested positive for COVID-19: No Exposed to someone with COVID-19 in past 14 days?: No Do you have a sore throat?: No Do you have a cough?: No Do you have any weakness?: No Are you experiencing any nausea/vomitting?: No Do you have any diarrhea?: No Are you experiencing any unusual bleeding?: No Do you have any muscle aches/pain?: No Do you have any abdominal pain?: No Are you experiencing loss of taste or smell?: No [facility] Anesthesia Checklist Patient Identification Patient Identification: Arm Band Structural Data Admitted From: Home Planned Operative Procedure/s: Colonoscopy Consent for Planned Operative Procedure(s) Verified: Yes Verified Documents: Surgical Consent and History and Physical NPO Status Verified Time NPO: 04:00 Additional verifications Patient : No Anesthesia Reactions: No Hx Blood Transfusions: No Blood Transfusion Reaction: No Cardiovascular Assessment Heart Sounds: S1 & S2 Pulse Rhythm: Irregular Peripheral Edema: No Airway Assessment Mallampati Score:: Class II C-Spine Mobility Assessed: Yes (FROM demonstrated) TMJ Mobility Assessed: Yes Dentition: Good Dentition (Nothing loose per pt.) Neurological Assessment Level of Consciousness: Awake, Alert, Appropriate and Follows Commands Hx Seizures: No Numbness or tingling in extremities: No Anesthesia Plan Anesthesia Risk discussed: Yes Anesthesia Plan: Verified ASA Class: II Anesthesia Type: MAC
[2024-06-20 07:55] VITALS: O2SAT 98
--- NOTE | 2024-06-20 07:56 | EXP.HP ---
History of Present Illness *Admission Date: 06/20/24 *Reason for visit:: Personal history of adenomatous polyps and family history of colon cancer *History of present illness: Mrs. Saab is a 74-year-old female who is here for surveillance colonoscopy secondary to a personal history of adenomatous colon polyps and family history of colon cancer. The examination is deemed medically necessary for [default value]. The patient has been seen, interviewed and examined prior to the procedure by both myself and the anesthesia provider. [facility] Disclaimer: The information contained in this section may have been updated after the patient was seen, as this information can be updated by other users. Medical History (Updated 06/20/24 @ 07:12 by Carli Santa) Skin cancer Internal hemorrhoids High cholesterol GERD (gastroesophageal reflux disease) Diverticulosis Colon polyps Barretts esophagus Surgical History History of colon resection Family History (Updated 06/20/24 @ 07:12 by Carli Santa) Other No significant family history Social History (Updated 06/20/24 @ 07:13 by Carli Santa) Smoking Status: Former smoker tobacco type: cigarettes packs per day: 1 second hand exposure: No alcohol intake: never substance use type: other current occupational status: retired Travel in the last 8 weeks: None household members: spouse housing: house 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 current occupational exposures/hazards: No caffeine: No Have you lived/traveled outside US in past 30 days?: No Contact w/someone who lives/traveled outside US past 30 days?: No Exposure to someone with infectious disease in past 14 days?: No Do you have a fever (greater than 100.4 F or 38 C)?: No Have you tested positive for COVID-19: No Exposed to someone with COVID-19 in past 14 days?: No Do you have a sore throat?: No Do you have a cough?: No Do you have any weakness?: No Are you experiencing any nausea/vomitting?: No Do you have any diarrhea?: No Are you experiencing any unusual bleeding?: No Do you have any muscle aches/pain?: No Do you have any abdominal pain?: No Are you experiencing loss of taste or smell?: No Other Medical History Have you received the Flu Vaccine for this season: Yes Have you received the Pneumonia Vaccine: Yes Review of Systems Review of Systems Review of systems (narrative): Negative *Cardiovascular Comments: Negative *Gastrointestinal Comments: Negative *Genitourinary Comments: Negative *Musculoskeletal Comments: Negative *Neurologic Comments: Negative Meds Home Medications and Allergies Home Medications ?Medication ?Instructions ?Recorded ?Confirmed ?Type metoclopramide HCl 10 mg tablet 10 mg PO QID barretts eso 02/14/18 06/20/24 History simvastatin 40 mg tablet 40 mg PO DAILY Cholesterol 02/14/18 06/20/24 History cholecalciferol (vitamin D3) 25 1,000 unit PO DAILY Supplement 04/01/19 06/20/24 History mcg (1,000 unit) capsule buspirone 15 mg tablet 10 mg PO BID . 03/16/20 06/20/24 History jaeugh-uqaksufi-tsjdosh 2 each PO AC pancreas 03/16/20 06/20/24 History 36,000-114,000-180,000 unit capsule,delay rel ondansetron HCl 4 mg tablet 4 mg PO Q8H PRN Nausea 03/05/24 06/20/24 History pantoprazole 40 mg tablet,delayed 40 mg PO QAM 03/05/24 06/20/24 History release polyethylene glycol 3350 17 17 g PO DAILY 4 days #68 grams 04/09/24 06/20/24 Rx gram/dose oral powder sodium,potassium,mag sulfates 17.5 See Rx Instructions PO .COMPLEX 06/07/24 Rx gram-3.13 gram-1.6 gram oral soln #354 mL (Suprep Bowel Prep Kit) New Prescriptions to Start Prescriptions: Allergies Allergy/AdvReac Type Severity Reaction Status Date / Time No Known Allergies Allergy Verified 06/04/24 09:57 Exam Data for Last 24 hours Vital signs and Labs for Last 24 Hours: Temp Pulse Resp BP Pulse Ox O2 Del Method 97.8 F 71 16 119/82 98 Room Air 06/20/24 07:16 06/20/24 07:16 06/20/24 07:16 06/20/24 07:16 06/20/24 07:16 06/20/24 07:16 I & O for Last 24 hours: Intake & Output 06/17/24 06/18/24 06/19/24 06/20/24 23:59 23:59 23:59 23:59 Weight 115 lb *Routine HEENT Exam Head: Present normocephalic Eye: Present EOMI and PERRL ENT: Present mucous membranes moist *Routine Neck Exam Neck: Present supple *Routine Respiratory Exam Respiratory: Present CTA bilaterally *Routine Cardiovascular Exam Cardiovascular: Present RRR *Routine Abdominal Exam Abdominal: Present soft and normoactive bowel sounds; Absent tenderness *Routine Rectal Exam Rectal:: deferred *Routine Genitalia Exam Genitalia:: deferred *Routine Extremities Exam Extremities: Absent cyanosis, clubbing or edema *Routine Skin Exam Skin: Present warm; Absent rash *Routine Neurological Exam Neurological: Present alert and oriented X3 Assessment and Plan *Assessment and plan (1) Personal history of adenomatous and serrated colon polyps: Status: Acute Category: Medical Code(s): Z86.0101 - Personal history of adenomatous and serrated colon polyps (2) Family history of colon cancer in father: Status: Acute Category: Medical Code(s): Z80.0 - Family history of malignant neoplasm of digestive organs Plan A/P: 1. Personal history of adenomatous colon polyps and family history of colon cancer with last colonoscopy over 6 years ago is the preprocedural diagnosis. The patient will be anesthetized/sedated using MAC sedation. The patient has been seen and examined. Cardiac and lung assessment prior to the examination is stable. Proceed with planned surveillance colonoscopy
--- NOTE | 2024-06-20 07:58 | HMH.PROCNOTE ---
[facility] Procedure Note Date: 06/20/24 Time: 08:00 Procedure Note:: Colonoscopy Procedure Report: Colonoscopy with cold snare polypectomy Endoscopist: Yevgeniy Bustamante II, MD Referring physician: Corbin Dominguez MD Date of Procedure: June 20, 2024 Equipment: Olympus 190 variable stiffness pediatric colonoscope Sedation: MAC sedation Indication: Mrs. Saab is a 74-year-old female who is here for surveillance colonoscopy. Her father had colon cancer. Her last colonoscopy in January 2018 revealed a single polyp (hyperplastic polyp) which was removed. The patient has had prior sigmoid resection secondary to diverticulitis. The patient does have a history of chronic pancreatitis with pancreas divisum and some pancreatic atrophy. She has had minor ampulla sphincterotomy. She does have EPI and is on Creon. She also takes buspirone for intermittent dyspepsia. Her CAT scan has shown primarily pancreatic ductal calcifications and her last CAT scan was in April 2023. We have followed serial CA 19-9 and this has steadily declined and last CA 19-9 was 49 on 11/06/2023. She reports no abdominal pain, weight loss, change in her bowel habits or rectal bleeding. Procedure: Prior to the procedure, a history and physical exam was performed, and patient's medications and allergies were reviewed. The risks, benefits and alternatives of the sedation and procedure were discussed with the patient. All questions were answered and informed consent was obtained. The patient was brought to the procedure room. Patient identification and proposed procedure were verified by the physician and the nurse. The patient was placed in a left lateral decubitus position and the scope was passed under direct vision. Throughout the procedure, the patient's blood pressure, pulse, and oxygen saturations were monitored continuously. The colonoscopy was accomplished without difficulty. The patient tolerated the procedure well. Findings: On digital rectal examination there was normal rectal tone. There were no external hemorrhoids. The colonoscope was introduced through the anal canal to the rectum and advanced to the cecum. The ileocecal valve and appendiceal orifice were identified. The scope was advanced a short distance into the ileum which appeared grossly normal. The scope was then withdrawn into the colon. There was a 4 mm polyp in the cecum removed via cold snare polypectomy. The remaining cecum, ascending and transverse colon and mucosa were grossly normal. There were scattered diverticuli throughout the remaining descending colon (LEFT colon). The surgical anastomosis was normal and well-healed with no anastomotic abnormality, stricture or erosion. The rectum itself was normal. Upon retroflexion within the rectum there were grade 1-2 internal hemorrhoids. The preparation was excellent throughout with [place] Preparation Score of 9. The cecal time was 12 minutes. Impression: 1. Diminutive cecal polyp 2. Left-sided diverticulosis with normal colocolonic anastomosis 3. Grade 1-2 internal hemorrhoids Plan: I will follow-up the polyp histology and I suspect small benign adenomatous polyp. I am not convinced that she will require further surveillance colonoscopy. Those persons that constitute having a stronger family history of colorectal cancer are those with a first-degree relative (parent, sibling, or child) diagnosed with colon cancer when they were younger than 50, or if more than one first-degree relative is affected. It is in these persons, that we recommend surveillance colonoscopy every 5 years. Persons that have a first-degree family member greater than 60 years of age at the time of their diagnosis are not deemed to be at greater risk because most colon cancers are sporadic (environmental and other factors) and are not hereditary. Only about 5 to 10 percent of colon cancer is hereditary.
[2024-06-20 08:18] VITALS: BP 102/70; PULSE 58; RESP 16; TEMP 36.7; O2SAT 94
[2024-06-20 08:28] VITALS: BP 105/58; PULSE 62; RESP 16; O2SAT 94
[2024-06-20 08:38] VITALS: BP 105/74; PULSE 60; RESP 16; O2SAT 95
[2024-06-20 08:46] LABS: Albumin Level 3.8 g/dl (3.5-5.0); Chloride 113 mmol/L (98-107); Potassium 3.4 mmoL/L (3.5-5.1); Sodium 136 mmol/L (136-145)
[2024-06-20 08:48] VITALS: BP 116/68; PULSE 62; RESP 18; O2SAT 95
[2024-06-20 08:48] LABS: Alanine Aminotransferase 19 U/L (12-78); Anion Gap 5.4 mEq/L (5-15); Aspartate Amino Transferase 28 U/L (14-36); Blood Urea Nitrogen 12 mg/dl (7-17); Carbon Dioxide 21 mmol/L (22.0-30.0); Creatinine Clearance Estimated 39 mL/min (50-200); Estimated Glomerular Filt Rate 70 ml/min (>60); GFR (African American) 84 ML/MIN (>60)
[2024-06-20 08:49] LABS: Albumin/Globulin Ratio 1.7 (1.1-1.8); Alkaline Phosphatase 90 U/L (38-126); Bilirubin,Total 0.5 mg/dl (0.2-1.3); Calcium 9.2 mg/dl (8.4-10.2); Globulin 2.2 g/dL (1.3-3.2); Glucose 103 mg/dl (74-100); Iron 93 ug/dL (37-170)
[2024-06-20 08:57] LABS: Hematocrit 38.7 % (37.0-47.0); Hemoglobin 13.5 g/dL (12.2-16.2); Lymphocytes % 21.1 % (10-50); Mean Corpuscular HGB Conc 34.9 g/dL (31.8-35.4); Mean Corpuscular Hemoglobin 34.2 pg (27.0-31.2); Monocytes % 5.6 % (1.7-9.3); Neutrophils % 71.9 % (37.0-80.0); Platelet Count 224 K/mm3 (142-424); Red Blood Count 3.95 M/mm3 (4.20-5.40); Red Cell Distribution Width 12.1 % (11.5-17.5); White Blood Count 7.3 K/mm3 (4.8-10.8)
[2024-06-20 08:58] LABS: Basophils # 0.1 K/mm3 (0-0.2); Basophils % 0.7 % (0.1-2.0); Eosinophils % 0.4 % (0.1-12.0); Lymphocytes # 1.6 K/mm3 (0.7-4.5); Monocytes # 0.4 K/mm3 (0.1-1.0); Neutrophils # 5.3 K/mm3 (1.8-7.8); Total Iron Binding Capacity 271 ug/dL (265-497)
[2024-06-20 09:27] LABS: Ferritin 20.6 ng/ml (11.1-264)
[2024-06-22 02:10] LABS: CA 19-9 53 U/mL (0-35)
== END 2024-06-20 08:48 | disposition home or self-care (01) ==
PROVIDERS: PCP Family Medicine; Visit Provider Internal Medicine Gastroenterology
PROC: (CPT 45385; principal; 2024-06-20 08:30)
DX: Z86.0101 Personal history of adenomatous and serrated colon polyps (principal); Z80.0 Family history of malignant neoplasm of digestive organs; K63.5 Polyp of colon; K57.30 Diverticulosis of large intestine without perforation or abscess without bleeding; K64.8 Other hemorrhoids
CPT/HCPCS: 45385; 36415; 80053; 82728; 83540; 83550; 85025; 86301; J7120

== ENCOUNTER 2025-04-29 11:10 | Outpatient (CLI) | payer MEDICARE, SELFPAY ==
--- OUTSIDE RECORDS SUMMARY | 2023-11-20 07:45 | XMS_ITS ---
Author Organization [facility] Address [address] [facility] [address] [facility] [address] [id number] Care Team Providers Care Critical Care Nurse Specialist Name Role Phone Corbin Dominguez Primary Care Provider Allergies No Known Allergies Results Component Value Reference Range Notes CBC Fingerstick (in house) Reviewed date:11/20/2023 02:43:23 PM Interpretation: Performing Lab: Notes/Report: wbc 11.4 3.5 - 10 lym 24.6 15 - 50 mid 6.3 2 - 15 gran 69.1 35 - 80 rbc 4.40 3.5 - 5.5 hgb 15.0 11.5 - 16.5 hct 45.0 35 - 55 mcv 102.3 75 - 100 mch 34.1 25 - 35 mchc 33.3 31 - 38 plat 218 100 - 400 Reason For Referral Diagnosis 1 Onychomycosis (B35.1 ) [facility]erring Provider First Name Corbin Referring Provider Last Name Angelica Referring Provider Speciality Family Pra ctice Referred Provider Ivelisse Díaz Referred Provider Specialty Podiatry General Notes Jojo Henao 11/20/19 24 2:09:05 PM > faxed referral Referral Priority Routine REASON FOR VISIT nausea Medications Medication SIG (Take, Route, Frequency, Duration) Notes Start Date End Date Status Varenicline Tartrate(Continue) 1 MG 1 tab(s) Orally Two times a day; Duration: 90 days 09/04/2023 Active traZODone HCl 50 mg TAKE ONE TABLET BY M OUTH EVERY DAY DIRECTED; Duration: 30 days Active Varenicline Tartrate (Starter) 0.5 MG X 11 & 1 MG X 42 as directed Orally 09/04/2023 Active Ondansetron HCl 4 mg TAKE ONE TABLET BY MOUTH FOUR TIMES DAILY; Duration: 30 Active Simvastatin 40 mg TAKE ONE TABLET BY M OUTH EVERY DAY AT BEDTIME; Duration: 90 Active Vitamin D3 25 MCG (1000 UT) 2 tab(s) ora lly once a day Active Creon 57014-026861 UNIT 3 cap(s) orally 3 times a day Active Konsyl Daily Fiber 3.4 G/11 G DIRECTED ORALLY ONCE DAILY Active Pantoprazole Sodium 40 MG 1 tab(s) orall y 2 times a day; Duration: 30 day(s) 12/06/2019 Active Metoclopramide HCl 10 MG 1 tablet before meals Orally Four times a day as needed 11/20/2023 Active Terbinafine HCl 250 MG 1 tablet Orally O nce a day; Duration: 90 days 11/20/2023 Active Vital Signs Blood pressure systolic 112 mm Hg 11/20/19 24 Blood pressure diastolic 70 mm Hg 024 Heart Rate 72 /min 11/20/2023 Height 63.50 in 11/20/2023 Weight 119.2 lbs 11/20/2023 BMI 20.78 kg/m2 11/20/2023 Encounters Encounter Location Date Provider Diagnosis [facility] [address] [facility] [address] [id number] 11/20/2023 Corbin Ogden Nausea R11.0 ; Gastroesophageal reflux disease, esophagitis presence not specified K21.9 and Onychomycosis B35.1 Assessments Encounter Date Diagnosis (ICD Code) Assessment Notes Treatment Notes Treatment Clinical Notes Section Notes 11/20/2023 Nausea (ICD-10 - R11.0) 11/20/2023 Gastroesophageal reflux disease, esophagitis presence not specified (ICD-10 - K21.9) 11/20/2023 Onychomycosis (ICD-10 - B35.1) Plan Of Treatment Medication Medication Name Sig Start Date Stop Date Notes Metoclopramide HCl 10 MG 1 tablet before meals Orally Four times a day as needed 11/20/2023 Terbinafine HCl 250 MG 1 tablet Orally O nce a day; Duration: 90 days 11/20/2023 Referrals Referral Date Details 11/20/2023 11/20/2023, Ivelisse orellana Next Appt Details Follow Up: via phone to repo rt progress, Reason: Progress Notes * Darlene SAABDOB:1950 (75 yo F)Acc No.[id number]:11/20/2023 Progress Notes Patient: Darlene DONATO Provider: Lucretia Dominguez M.D. :1950 A ge:73 Y S ex:Female Date:11/20/2023 Address:[address] [place], [place] [address], [id number] Subjective: * Chief Complaints: * 1 . Nausea. * HPI: G astroenterology: 73 year old female presents with c/o Nausea P t complains of nausea for about a week, no vomiting or diarrhea. States she has had decreased appetite as well.? Denies : Abdominal Pain. D enies : Fever. * ROS: C ARDIOLOGY: no D izziness. n o C hest pain. D ERMATOLOGY: no R rupert. n o H lex. U ROLOGY: no D ifficulty urinating. n o B lood in urine. * Medical History: E sophageal Reflux, Xiong's Esophagus, Hypertension, Allergic Rhinitis, Hyperlipidemia, Renal Artery Aneurysm, Lumbar Disc Disease, MRI 2016, Lumbar Facet Arthropathy, 30 Year Smoking Hx as of 2017, Colon Polyps, Diverticulosis. * Surgical History: T onsilectomy , lump removed from right breast , colonoscopy 2009, EGD, numerous, most recent 2016 , colonoscopy 2014, colonoscopy 2017, cholecystectomy 03/2018, Colon Resection w/ Low Anterior Splenic Flexure Mobilization, Rectopexty, Appendectomy, BSO 07/30-, ERCP 03/14/2020, EGD with EUS and pancreatic biopsies at - Dr. Schrader 07/2020. * Hospitalization/Major Diagno stic Procedure: c hildbirth , tonsilectomy , [facility] - Diverticulitis 07/30-. * Family History: F ather: , abdominal aortic aneurysm. M other: . 4 sister(s) - healthy. 2 son(s) , 1 daughter(s) - healthy. . * Social History: C URRENT TOBACCO USE S moking Status: Patient does smoke, number of cigarettes per day: 10. C affeine: yes, frequency:2 cups of coffee/day. Marital Status: . Past smoking status: yes, PPD: 1/2 , years: 30 ,determination:. Alcohol: No. * Medications: T aking Vitamin D3 25 MCG (1000 UT) Tablet 2 tab(s) orally once a day , Taking Konsyl Daily Fiber 3.4 G/11 G POWDER FOR RECONSTITUTION DIRECTED ORALLY ONCE DAILY , Taking Pantoprazole Sodium 40 MG Tablet Delayed Release 1 tab(s) orally 2 times a day , Taking Creon [id number] UNIT Capsule Delayed Release Particles 3 cap(s) orally 3 times a day , Taking Simvastatin 40 mg Tablet TAKE ONE TABLET BY MOUTH EVERY DAY AT BEDTIME , Taking Varenicline Tartrate (Starter) 0.5 MG X 11 & 1 MG X 42 Tablet Therapy Pack as directed Orally , Taking Varenicline Tartrate(Continue) 1 MG Tablet 1 tab(s) Orally Two times a day , Taking traZODone HCl 50 mg Tablet TAKE ONE TABLET BY MOUTH EVERY DAY DIRECTED , Taking Ondansetron HCl 4 mg Tablet TAKE ONE TABLET BY MOUTH FOUR TIMES DAILY , Discontinued Gimoti 15 MG/ACT Solution as directed intranasally 4 times a day , Discontinued Cyclobenzaprine HCl 5 MG Tablet 1 tablet Orally every 8 hours as needed , Medication List reviewed and reconciled with the patient * Allergies: N .K.D.A. Objective: * Vitals: W t:119.2, Temp:98.0, BP:112/70, HR:72, Nurse:lester, Ht: 63.50, BMI:20.78. * Examination: G astroenterology: General Appearance: p leasant, NAD. O ral cavity: n ormal. S clera: a nicteric. H eart sounds: r egular, normal S1 S2. L ungs: c lear, no rales or wheezes. A bdomen: B S present, soft, nontender, no guarding or rigidity, no masses felt. G eneral Examination: Skin: r ight great toe nail thickened and discolored yellow. Assessment: * Assessment: 1. N ausea - R11.0 (Primary) 2 . G astroesophageal reflux disease, esophagitis presence not specified - K21.9 3 . O nychomycosis - B35.1 Plan: * Treatment: Value Reference Range w bc 11.4 3.5 - 10 * l ym 24.6 15 - 50 * m id 6.3 2 - 15 * g ran 69.1 35 - 80 * r bc 4.40 3.5 - 5.5 * h gb 15.0 11.5 - 16.5 * h ct 45.0 35 - 55 * m cv 102.3 75 - 100 * m ch 34.1 25 - 35 * m chc 33.3 31 - 38 * p lat 218 100 - 400 * JuanKelsy 11/20/2023 1 2:03:49 PM > , Provider reviewed results while patient in office. 2.?Gastroesophageal reflux disease, esophagitis presence not specified? Start Metoclopramide HCl Tablet, 10 MG, 1 tablet before meals, Orally, Four times a day as needed, 120, Refills 1.??3.?Onychomycosis? Start Terbinafine HCl Tablet, 250 MG, 1 tablet, Orally, Once a day, 90 days, 90 Tablet, Refills 0. ? Referral To:Ivelisse Díaz??Podiatry ?Reason: * Procedure Codes: G 2211 Complex e/[place], [address] CAPILLARY BLOOD DRAW, 12294 CBC WITH AUTO DIFF * Follow Up: v ia phone to report progress * Images: Billing Information: * Visit Code: 70193 Office Visit, Est Pt., Level 4. * Procedure Codes: G2211 Complex e/[place]. [address] CAPILLARY BLOOD DRAW. 48797 CBC WITH AUTO DIFF. * Electronic signature of Cherrie Dominguez MD on 04/29/2025 at 11:13 AM EDT Sign off status: Pending * Provider: Lucretia Dominguez M.D. Date: 0 11/20/2023 Generated for Linda carter/[place]/Kingitting on: 1 11:13 AM EDT History and Physical Notes * HPI (History of Present Illness) Category Sub-Category Detail Notes Category Not es Gastroenterology Fever Abdominal Pain Nausea Pt complains of naus ea for about a week, no vomiting or diarrhea. States she has had decreased appetite as well Examination Category Sub-Category Detail Notes Category Not es General Examination Skin: right great toe nail thickened and discolored yellow Gastroenterology Oral cavity: normal Sclera: anicteric Heart sounds: regular, normal S1 S 2 Lungs: clear, no rales or w heezes Abdomen: BS present, soft, no ntender, no guarding or rigidity, no masses felt General Appearance: pleasant, NAD Consultation Request Notes Referral Date Referring Provider Referred Provider Not es 11/20/2023 Corbin Dominguez Sofie
--- OUTSIDE RECORDS SUMMARY | 2024-03-13 09:05 | XMS_ITS ---
Author Organization [place] Address [address] [facility] [address] [facility] [address] [place] [id number] Care Team Providers Care Manager Corporate Strategy Name Role Phone Corbin Dominguez Primary Care Provider [phone] REASON FOR VISIT flu shot Immunizations Vaccine Route Administration Date Status Comme nts Fluzone High Dose (65yr and older) IM Intramuscular 03/13/2024 Administered Encounters Encounter Location Date Provider Diagnosis [facility] [address] [facility] [address] [facility] [address] [place] [phone] 03/13/2024 Corbin Dominguez Encounter for immunization Z23 Assessments Encounter Date Diagnosis (ICD Code) Assessment Notes Treatment Notes Treatment Clinical Notes Section Notes 03/13/2024 Encounter for immunization (ICD-10 - Z23) Plan Of Treatment No Information Progress Notes * Darlene SAABDOB:1950 (75 yo F)Acc No.[id number]:03/13/2024 Patient: Darlene DONATO Provider: Lucretia Dominguez M.D. :1950 A ge:74 Y S ex:Female Date:03/13/2024 Address:[address] [place] [address] [id number] Subjective: * Chief Complaints: * 1 . Flu shot. * Medical History: Objective: * Vitals: Assessment: * Assessment: 1. E ncounter for immunization - Z23 (Primary) Plan: * Treatment: * Immunizations: Fluzone High Dose (65yr and older) : 0.7 mL (Route: Intramuscular) given by Sirena Nj on Right Deltoid (Encounter for immunization) * Images: Billing Information: * Visit Code: * Procedure Codes: * Electronic signature of Cherrie Dominguez MD on 04/29/2025 at 11:14 AM EDT Sign off status: Pending * Provider: Lucretia Dominguez M.D. Date: 0 03/13/2024 Generated for Linda carter/[place]/King[place] on: 1 11:14 AM EDT
--- OUTSIDE RECORDS SUMMARY | 2024-04-03 07:15 | XMS_ITS ---
Author Organization [facility] Address [address] [facility] [address] [place] [id number] Care Team Providers Care Sound Printer Name Role Phone Corbin Dominguez Primary Care Provider [phone] Allergies No Known Allergies Results Component Value Reference Range Notes P-Calcium, Ionized Reviewed date:04/04/2024 08:06:52 AM Interpretation:5.37 Performing Lab: Notes/Report: CLIA: [id number] Brett Hooper MD, Supervisor [employer] [address] [place] [address] Dr. [facility], [place] [address] Test performed by [employer] Calcium, Ionized 5.37 4.60-5.30 mg/dL P-Comprehensive Metabolic Pa rolando (CMP) Reviewed date:04/04/2024 08:06:52 AM Interpretation:Ca 10.6 Performing Lab: Notes/Report: Test performed by [employer] [address] [place] [address] Dr. [facility] [address], [place] [address] Brett Hooper MD, Supervisor [employer] CLIA: [id number] Sodium 144 135-145 mmol/L Potassium 4.7 3.5-5.3 mmol/L Chloride 107 97-108 mmol/L CO2 25 22-32 mmol/L Glucose 91 65-99 mg/dL BUN 12 8-23 mg/dL Creatinine 0.95 0.50-1.00 mg/dL Calcium 10.6 8.6-10.4 mg/dL eGFR by Creatinine 62 >59 mL/min/1.73m2 Protein 6.7 6.0-8.3 g/dL Albumin 4.3 3.5-5.3 g/dL Alkaline Phosphatase 102 35-121 IU/L ALT (SGPT) 10 <5-47 IU/L AST (SGOT) 12 <5-40 IU/L Bilirubin, Total 0.3 <0.2-1.2 mg/dL A/G Ratio 1.8 1.1-2.5 P-Lipid Panel Reviewed date:04/04/2024 08:06:52 AM Interpretation:trigs 168, non-hdl 145 Performing Lab: Notes/Report: Test performed by [employer], [address] , [address], [place] [address] Brett Hooper MD, Supervisor [employer] CLIA: [id number] Cholesterol 197 <200 mg/dL Triglycerides 168 <150 mg/dL HDL Cholesterol 52 >39 mg/dL Cholesterol / HDL Ratio 3.79 0.00-4.44 Ratio Non-HDL Cholesterol 145 <130 mg/dL LDL Cholesterol (Calculation) 111 <130 mg/dL LDL Cholesterol Levels* Less than 100 mg/dL Optimal 100 to 129 mg/dL Near Optimal/ Above Optimal 130 to 159 mg/dL Borderline High 160 to 189 mg/dL High 190 mg/dL and above Very High * Categories as recommended by the 2004 ATPIII guidelines LDL/HDL Ratio 2.1 <3.3 Ratio LDL Cholesterol Patient History Test Date: 04/03/2024 LDL Results: 111 Units: mg/dL % Change: - P-TSH reflex to FT4 Reviewed date:04/04/2024 08:06:52 AM Interpretation:Normal Performing Lab: Notes/Report: Test performed by [employer] [address] [place] [address] , [address], [place] [address] Brett Hooper MD, Supervisor [employer] CLIA: [id number] TSH reflex to FT4 0.71 0.43-5.25 mU/L DEXA Hip and Spine Reviewed date:04/09/2024 09:07:13 AM Interpretation:osteopenia Performing Lab: Notes/Report: osteopenia Dexa results osteopenia CT Scan : Chest, low dose Reviewed date:05/27/2024 10:04:39 AM Interpretation:stable, annual f/u Performing Lab: Notes/Report: stable, annual f/u REASON FOR VISIT checkup with refills Medications Medication SIG (Take, Route, Frequency, Duration) Notes Start Date End Date Status Vitamin D3 25 MCG (1000 UT) 2 tab(s) ora lly once a day Active Pantoprazole Sodium 40 MG 1 tab(s) orall y 2 times a day; Duration: 30 day(s) 12/06/2019 Active Konsyl Daily Fiber 3.4 G/11 G DIRECTED ORALLY ONCE DAILY Active Promethazine HCl 12.5 MG 1 tablet as nee ded Orally every 8 hrs 04/03/2024 Active Simvastatin 40 mg TAKE ONE TABLET BY M OUTH EVERY DAY AT BEDTIME; Duration: 30 Active traZODone HCl 50 mg TAKE ONE TABLET BY M OUTH EVERY DAY DIRECTED; Duration: 90 days Active Creon [id number] UNIT 3 cap(s) orally 3 times a day; Duration: 90 days Active Ondansetron HCl 4 mg TAKE ONE TABLET BY MOUTH FOUR TIMES DAILY; Duration: 30 days Active Terbinafine HCl 250 MG 1 tablet Orally O nce a day; Duration: 90 days 11/20/2023 Active Metoclopramide HCl 10 MG 1 tablet before meals Orally Four times a day as needed Active Vital Signs Blood pressure systolic 108 mm Hg 04/03/20 24 Blood pressure diastolic 64 mm Hg 024 Heart Rate 70 /min 04/03/2024 Height 63.50 in 04/03/2024 Weight 125.4 lbs 04/03/2024 BMI 21.86 kg/m2 04/03/2024 Encounters Encounter Location Date Provider Diagnosis [facility] [address] [facility] [address] [place] [id number] 04/03/2024 Corbin Dominguez Mixed hyperlipidemia E78.2 ; Gastroesophageal reflux disease, esophagitis presence not specified K21.9 ; Chronic pancreatitis, unspecified pancreatitis type K86.1 ; Hypercalcemia E83.52 ; Osteopenia of lumbar spine M85.88 ; Encounter for screening for lung cancer Z12.2 ; Personal history of nicotine dependence Z87.891 and Osteoporosis screening Z13.820 Assessments Encounter Date Diagnosis (ICD Code) Assessment Notes Treatment Notes Treatment Clinical Notes Section Notes 04/03/2024 Mixed hyperlipidemia (ICD-10 - E78.2) 04/03/2024 Gastroesophageal reflux disease, esophagitis presence not specified (ICD-10 - K21.9) 04/03/2024 Chronic pancreatitis, unspecified pancreatitis type (ICD-10 - K86.1) 04/03/2024 Hypercalcemia (ICD-10 - E83.52) 04/03/2024 Osteopenia of lumbar spine (ICD-10 - M85.88) 04/03/2024 Encounter for screening for lung cancer (ICD-10 - Z12.2) 04/03/2024 Personal history of nicotine dependence (ICD-10 - Z87.891) 04/03/2024 Osteoporosis screening (ICD-10 - Z13.820) Plan Of Treatment Medication Medication Name Sig Start Date Stop Date Notes Promethazine HCl 12.5 MG 1 tablet as nee ded Orally every 8 hrs 04/03/2024 Creon [id number] UNIT 3 cap(s) orally 3 times a day; Duration: 90 days Next Appt Details Follow Up: 6 Months, Reason: Progress Notes * Darlene SAABDOB:1950 (75 yo F)Acc No.[id number]:04/03/2024 Progress Notes Patient: Darlene DONATO Provider: Lucretia Dominguez M.D. :1950 A ge:74 Y S ex:Female Date:04/03/2024 Address:[address] [place] [address] [address] [place], [id number] Subjective: * Chief Complaints: * 1 . Checkup with refills. * HPI: C ardiology: 74 year old female presents with c/o Blood Pressure Elevated?Pt here to f/u on hypertension, states she is doing well and does not have any concerns. c/o Hyperlipidemia P t is not fasting today. * ROS: D ERMATOLOGY: no R rupert. n o H lex. G ASTROENTEROLOGY: no N ausea. n o V omiting. U ROLOGY: no D ifficulty urinating. n [...] stic Procedure: c hildbirth , tonsilectomy , [facility] - Diverticulitis 07/30-. * Family History: [...] 2 times a day , Taking Creon [id number] UNIT Capsule Delayed Release Particles 3 cap(s) orally 3 times a day , Taking Terbinafine HCl 250 MG Tablet 1 tablet Orally Once a day , Taking Metoclopramide HCl 10 MG Tablet 1 tablet before meals Orally Four times a day as needed , Taking Ondansetron HCl 4 mg Tablet TAKE ONE TABLET BY MOUTH FOUR TIMES DAILY , Taking Simvastatin 40 mg Tablet TAKE ONE TABLET BY MOUTH EVERY DAY AT BEDTIME , Taking traZODone HCl 50 mg Tablet TAKE ONE TABLET BY MOUTH EVERY DAY DIRECTED , Discontinued Varenicline Tartrate (Starter) 0.5 MG X 11 & 1 MG X 42 Tablet Therapy Pack as directed Orally , Discontinued Varenicline Tartrate(Continue) 1 MG Tablet 1 tab(s) Orally Two times a day , Medication List reviewed and reconciled with the patient * Allergies: N .K.D.A. Objective: * Vitals: W t:125.4, Temp:97.9, BP:108/64, HR:70, Nurse:lester, Ht: 63.50, BMI:21.86. * Examination: G eneral Examination: General Appearance: N AD. H eart: R SR. L ungs:?clear to auscultation. A bdomen: bowel sounds present, soft and nontender. P eripheral pulses: n ormal (2+) bilaterally. E xtremities: n o leg edema. ? Assessment: * Assessment: 1. M ixed hyperlipidemia - E78.2 (Primary) 2 . G astroesophageal reflux disease, esophagitis presence not specified - K21.9 3 . C hronic pancreatitis, unspecified pancreatitis type - K86.1 4 . H ypercalcemia - E83.52 5 . O steopenia of lumbar spine - M85.88 6 . E ncounter for screening for lung cancer - Z12.2 7 . P ersonal history of nicotine dependence - Z87.891 ? 8 . O steoporosis screening - Z13.820 Plan: * Treatment: Value Reference Range A /G Ratio 1.8 1.1-2.5 - * A lbumin 4.3 3.5-5.3 - g/dL * A lkaline Phosphatase 102 35-121 - IU/L * A LT (SGPT) 10 <5-47 - IU/L * A ST (SGOT) 12 <5-40 - IU/L * B ilirubin, Total 0.3 <0.2-1.2 - mg/dL * B UN 12 8-23 - mg/dL * C alcium 10.6 H 8.6-10.4 - mg/dL * C hloride 107 97-108 - mmol/L * C O2 25 22-32 - mmol/L * C reatinine 0.95 0.50-1.00 - mg/dL * G lucose 91 65-99 - mg/dL * P otassium 4.7 3.5-5.3 - mmol/L * S odium 144 135-145 - mmol/L * P rotein 6.7 6.0-8.3 - g/dL * e GFR by Creatinine 62 >59 - mL/min/1.73m2 * Ann Marie Dejesus 04/04/2024 8:06: 44 AM >See phone encounter ?LAB: P-Lipid Panel (Collection Date & Time - 04/03/2024 10:55 AM)?trigs 168, non-hdl 145* Value Reference Range C holesterol / HDL Ratio 3.79 0.00-4.44 - Ratio * C holesterol 197 <200 - mg/dL * H DL Cholesterol 52 >39 - mg/dL * L DL Cholesterol (Calculation) 111 <130 - mg/d L * L DL/HDL Ratio 2.1 <3.3 - Ratio * N on-HDL Cholesterol 145 H <130 - mg/dL * T riglycerides 168 H <150 - mg/dL * Ann Marie Dejesus 04/04/2024 8:06: 44 AM >See phone encounter ?LAB: P-TSH reflex to FT4 (Collection Date & Time - 04/03/2024 10:55 AM)? Normal* Value Reference Range T SH reflex to FT4 0.71 0.43-5.25 - mU/L * Ann Marie Dejesus 04/04/2024 8:06: 44 AM >See phone encounter 2.?Chronic pancreatitis, unspecified pancreatitis type? Refill Creon Capsule Delayed Release Particles, [id number] UNIT, 3 cap(s), orally, 3 times a day,90 days, 810, Refills 1.??3.?Hypercalcemia?LAB: P-Calcium, Ionized (Collection Date & Time - 04/03/2024 10:55 AM)?5.37 * Value Reference Range C alcium, Ionized 5.37 H 4.60-5.30 - mg/dL * Ann Marie Dejesus 04/04/2024 8:06: 44 AM >See phone encounter ?LAB: P-Comprehensive Metabolic Panel (CMP) (Collection Date & Time - 04/03/2024 10:55 AM)?Ca 10.6* Value Reference Range A /G Ratio 1.8 1.1-2.5 - * A lbumin 4.3 3.5-5.3 - g/dL * A lkaline Phosphatase 102 35-121 - IU/L * A LT (SGPT) 10 <5-47 - IU/L * A ST (SGOT) 12 <5-40 - IU/L * B ilirubin, Total 0.3 <0.2-1.2 - mg/dL * B UN 12 8-23 - mg/dL * C alcium 10.6 H 8.6-10.4 - mg/dL * C hloride 107 97-108 - mmol/L * C O2 25 22-32 - mmol/L * C reatinine 0.95 0.50-1.00 - mg/dL * G lucose 91 65-99 - mg/dL * P otassium 4.7 3.5-5.3 - mmol/L * S odium 144 135-145 - mmol/L * P rotein 6.7 6.0-8.3 - g/dL * e GFR by Creatinine 62 >59 - mL/min/1.73m2 * Ann Marie Dejesus 04/04/2024 8:06: 44 AM >See phone encounter 4.?Osteopenia of lumbar spine?Imaging: DEXA Hip and Spine (Performed Date - 04/08/2024)?osteopenia* Value Reference Range D exa results osteopenia * Jojo Henao 04/04/2024 8:53: 33 AM > no auth required; CPT code 58526; faxed to [facility] SchedulingWhdemisaschaAnn Marie 04/09/2024 9:07:08 AM > , See phone encounter 5.?Encounter for screening for lung cancer?Imaging: CT Scan : Chest, low dose (Performed Date - 05/20/2024)?stable, annual f/u* EarleneJojo 04/04/2024 10:07 :29 AM > no auth required per insurance; CPT code 21111; On or after 05/19/24; [facility]/27/2024 10:03:43 AM > pt informed of results 6.?Personal history of nicotine dependence?Imaging: CT Scan : Chest, low dose (Performed Date - 05/20/2024)?stable, annual f/u* EarleneJojo 04/04/2024 10:07 :29 AM > no auth required per insurance; CPT code 91345; On or after 05/19/24; [facility] 05/27/2024 10:03:43 AM > pt informed of results 7.?Osteoporosis screening?Imaging: DEXA Hip and Spine (Performed Date - 04/08/2024)?osteopenia* Value Reference Range D exa results osteopenia * EarleneJojo 04/04/2024 8:53: 33 AM > no auth required; CPT code 76659; faxed to [facility] SlimedemiAnn Marie caicedo 04/09/2024 9:07:08 AM > , See phone encounter 8.?Others? Start Promethazine HCl Tablet, 12.5 MG, 1 tablet as needed, Orally, every 8 hrs, 30, Refills 1. ? * Procedure Codes: G 2211 Complex e/m visit add on * Follow Up: 6 Months * Images: Billing Information: * Visit Code: 21063 Office Visit, Est Pt., Level 4. * Procedure Codes: G2211 Complex e/m visit add on. * Electronic signature of Cherrie Dominguez MD on 04/29/2025 at 11:13 AM EDT Sign off status: Pending * Provider: Lucretia Dominguez M.D. Date: 1 Generated for Linda carter/[place]/Kingitting on: 1 11:13 AM EDT History and Physical Notes * HPI (History of Present Illness) Category Sub-Category Detail Notes Category Not es Cardiology Blood Pressure Elevated Pt here to f/u on hypertension, states she is doing well and does not have any concerns Hyperlipidemia Pt is not fasting to day Examination Category Sub-Category Detail Notes Category Not es General Examination Heart: RSR Lungs: clear to auscultatio n Abdomen: bowel sounds present , soft and nontender Extremities: no leg edema General Appearance: NAD Peripheral pulses: normal (2+) bilatera lly
--- OUTSIDE RECORDS SUMMARY | 2024-04-30 09:30 | XMS_ITS ---
[facility] Address [address] [facility] [address] [place] [id number] Care Team Providers Care Straight Ruling Machine Operator Name Role Phone Angelica Corbin Primary Care Provider Cholo Chaney Unavailable [phone] Allergies No Known Allergies REASON FOR VISIT hurt foot Medications Medication SIG (Take, Route, Frequency, Duration) Notes Start Date End Date Status Promethazine HCl 12.5 MG 1 tablet as nee ded Orally every 8 hrs 04/03/2024 Active Metoclopramide HCl 10 MG 1 tablet before meals Orally Four times a day as needed Active Simvastatin 40 mg TAKE ONE TABLET BY M OUTH EVERY DAY AT BEDTIME; Duration: 30 days Active Citracal Calcium +D3 600-40-500 MG-MG-UNIT as directed Orally 04/24/2024 Active traMADol HCl 50 MG 1 tab(s) Orally four times a day as needed 04/30/2024 Active Ondansetron HCl 4 mg TAKE ONE TABLET BY MOUTH FOUR TIMES DAILY; Duration: 30 days Active traZODone HCl 50 mg TAKE ONE TABLET BY M OUTH EVERY DAY DIRECTED; Duration: 90 days Active Creon [id number] UNIT 3 cap(s) orally 3 times a day; Duration: 90 days Active Pantoprazole Sodium 40 MG 1 tab(s) orall y 2 times a day; Duration: 30 day(s) 12/06/2019 Active Terbinafine HCl 250 MG 1 tablet Orally O nce a day; Duration: 90 days 11/20/2023 Active Vitamin D3 25 MCG (1000 UT) 2 tab(s) ora lly once a day Active Konsyl Daily Fiber 3.4 G/11 G DIRECTED ORALLY ONCE DAILY Active Vital Signs Blood pressure systolic 122 mm Hg 04/30/20 24 Blood pressure diastolic 80 mm Hg 024 Heart Rate 82 /min 04/30/2024 Height 63.50 in 04/30/2024 Weight 125.4 lbs 04/30/2024 BMI 21.86 kg/m2 04/30/2024 Encounters Encounter Location Date Provider Diagnosis [facility] [address] [place] [id number] 04/30/2024 Cholo Chaney Foot injury S99.929A Assessments Encounter Date Diagnosis (ICD Code) Assessment Notes Treatment Notes Treatment Clinical Notes Section Notes 04/30/2024 Foot injury (ICD-10 - S99.929A) Will obtain x-rays to rule out fracture. Recommend ice and elevation of the foot. Plan Of Treatment Medication Medication Name Sig Start Date Stop Date Notes traMADol HCl 50 MG 1 tab(s) Orally four times a day as needed 04/30/2024 Treatment Notes Assessment Notes Foot injury Will obtain x-rays t o rule out fracture. Recommend ice and elevation of the foot. Next Appt Details Follow Up: via phone to repo rt test results, Reason: Progress Notes * Darlene SAABDOB:1950 (75 yo F)Acc No.[id number]:04/30/2024 Progress Notes Patient: Darlene DONATO Provider: Cholo Chaney M.D. :1950 A ge:74 Y S ex:Female Date:04/30/2024 Address:[address] [place] [address] [address] [place], [id number] Pcp:Corbin Dominguez Subjective: * Chief Complaints: * 1 . Hurt foot. * HPI: A nkle/Foot: Darlene presents for evaluation of left foot injury. She states she fell down her basement steps last evening and twisted her foot. She has been bearing weight but it is painful on the top of the foot and around her ankle. * ROS: D ERMATOLOGY: no R rupert. [...] stic Procedure: c hildbirth , tonsilectomy , [facility] - Diverticulitis 07/30-. * Family History: [...] orally 2 times a day , Taking Terbinafine HCl 250 MG Tablet 1 tablet Orally Once a day , Taking Ondansetron HCl 4 mg Tablet TAKE ONE TABLET BY MOUTH FOUR TIMES DAILY , Taking traZODone HCl 50 mg Tablet TAKE ONE TABLET BY MOUTH EVERY DAY DIRECTED , Taking Creon [id number] UNIT Capsule Delayed Release Particles 3 cap(s) orally 3 times a day , Taking Promethazine HCl 12.5 MG Tablet 1 tablet as needed Orally every 8 hrs , Taking Metoclopramide HCl 10 MG Tablet 1 tablet before meals Orally Four times a day as needed , Taking Simvastatin 40 mg Tablet TAKE ONE TABLET BY MOUTH EVERY DAY AT BEDTIME , Taking Citracal Calcium +D3 600-40-500 MG-MG-UNIT Tablet Extended Release 24 Hour as directed Orally , Medication List reviewed and reconciled with the patient * Allergies: N .K.D.A. Objective: * Vitals: W t:125.4, Temp:97.9, BP:122/80, HR:82, Nurse:SHABBIR, Ht: 63.50, BMI:21.86. * Examination: G eneral Examination: Extremities: L eft foot and ankle shows no obvious deformity but there is s welling and extensive bruising across the dorsum of the foot. There is tenderness around the lateral malleolus extending onto the dorsum of the foot. Range of motion is decreased due to pain and swelling.. Assessment: * Assessment: 1. F oot injury - S99.929A (Primary) Plan: * Treatment: * Follow Up: v ia phone to report test results * Images: Billing Information: * Visit Code: 40353 Office Visit, Est Pt., Level 3. * Procedure Codes: * Electronic signature of Cholo Chaney MD on 04/29/2025 at 11:13 AM EDT Sign off status: Pending * Provider: Cholo Chaney M.D. Date: Generated for Linda carter/[place]/Kingitting on: 11:13 AM EDT History and Physical Notes * Examination Category Sub-Category Detail Notes Category Not es General Examination Extremities: Left foot an d ankle shows no obvious deformity but there is swelling and extensive bruising across the dorsum of the foot. There is tenderness around the lateral malleolus extending onto the dorsum of the foot. Range of motion is decreased due to pain and swelling.
--- OUTSIDE RECORDS SUMMARY | 2024-05-03 07:30 | XMS_ITS ---
[facility] Address [address] [facility] [address] [place] [id number] Care Team Providers Care Spike Driver Name Role Phone Angelica Corbin Primary Care Provider Allergies No Known Allergies REASON FOR VISIT hurt foot Medications Medication SIG (Take, Route, Frequency, Duration) Notes Start Date End Date Status Creon [id number] UNIT 3 cap(s) orally 3 times a day; Duration: 90 days Active traZODone HCl 50 mg TAKE ONE TABLET BY M OUTH EVERY DAY DIRECTED; Duration: 90 days Active Metoclopramide HCl 10 MG 1 tablet before meals Orally Four times a day as needed Active Promethazine HCl 12.5 MG 1 tablet as nee ded Orally every 8 hrs 04/03/2024 Active Simvastatin 40 mg TAKE ONE TABLET BY M OUTH EVERY DAY AT BEDTIME; Duration: 30 days Active Walking boot - - - - 05/03/2024 Acti ve Vitamin D3 25 MCG (1000 UT) 2 tab(s) ora lly once a day Active Pantoprazole Sodium 40 MG 1 tab(s) orall y 2 times a day; Duration: 30 day(s) 12/06/2019 Active Konsyl Daily Fiber 3.4 G/11 G DIRECTED ORALLY ONCE DAILY Active Terbinafine HCl 250 MG 1 tablet Orally O nce a day; Duration: 90 days 11/20/2023 Active Citracal Calcium +D3 600-40-500 MG-MG-UNIT as directed Orally 04/24/2024 Active Ondansetron HCl 4 mg take one tablet by mouth four times daily Active HYDROcodone-Acetaminophen 5-325 MG 1 tablet as needed Orally every 6 hrs 05/03/2024 Active Vital Signs Blood pressure systolic 110 mm Hg 05/03/20 24 Blood pressure diastolic 70 mm Hg 024 Heart Rate 74 /min 05/03/2024 Height 63.50 in 05/03/2024 Weight 125.8 lbs 05/03/2024 BMI 21.93 kg/m2 05/03/2024 Encounters Encounter Location Date Provider Diagnosis [facility] [address] [facility] [address] [place], [place] [id number] 05/03/2024 Corbin Dominguez Pain in left foot M79.672 ; Sprain of left ankle, unspecified ligament, subsequent encounter S93.402D and Pancreatic divisum Q45.3 Assessments Encounter Date Diagnosis (ICD Code) Assessment Notes Treatment Notes Treatment Clinical Notes Section Notes 05/03/2024 Pain in left foot (ICD-10 - M79.672) 05/03/2024 Sprain of left ankle, unspecified ligament, subsequent encounter (ICD-10 - S93.402D) Patient to start physical therapy in 3 days 05/03/2024 Pancreatic divisum (ICD-10 - Q45.3) Plan Of Treatment Medication Medication Name Sig Start Date Stop Date Notes Walking boot - - - - 05/03/2024 traMADol HCl 50 MG 1 tab(s) Orally four times a day as needed 04/30/2024 Ondansetron HCl 4 mg take one tablet by mouth four times daily HYDROcodone-Acetaminophen 5- 325 MG 1 tablet as needed Orally every 6 hrs 05/03/2024 Treatment Notes Assessment Notes Sprain of left ankle, unspec ified ligament, subsequent encounter Patient to start physical therapy in 3 days Next Appt Details Follow Up: via phone to repo rt progress, Reason: Progress Notes * Darlene SAABDOB:1950 (75 yo F)Acc No.[id number]:05/03/2024 Progress Notes Patient: Darlene DONATO Provider: Lucretia Dominguez M.D. :1950 A ge:74 Y S ex:Female Date:05/03/2024 Address:[address] [place] [address] , [id number] Subjective: * Chief Complaints: * 1 . Hurt foot. * HPI: A nkle/Foot: 74 year old female presents with c/o Pain P t complains of lt foot pain, pt states she fell down stairs on Monday. Pt has swelling on bruising in ankle and on top of lt foot. * ROS: D ERMATOLOGY: no R rupert. [...] stic Procedure: c hildbirth , tonsilectomy , [facility] - Diverticulitis 07/30-. * Family History: [...] tablet Orally Once a day , Taking traZODone HCl 50 mg Tablet TAKE ONE TABLET BY MOUTH EVERY DAY DIRECTED , Taking Creon [id number] UNIT Capsule Delayed Release Particles 3 cap(s) [...] Release 24 Hour as directed Orally , Taking traMADol HCl 50 MG Tablet 1 tab(s) Orally four times a day as needed , Taking Ondansetron HCl 4 mg Tablet TAKE ONE TABLET BY MOUTH FOUR TIMES DAILY , Medication List reviewed and reconciled with the patient * Allergies: N .K.D.A. Objective: * Vitals: W t:125.8, Temp:97.8, BP:110/70, HR:74, Nurse:lester, Ht: 63.50, BMI:21.93. * Examination: G eneral Examination: General Appearance: N AD. E xtremities: e xtensive swelling and bruising over the dorsum of the left foot, can almost dorsiflex to 90 degrees, tenderness over the navicular bone. Assessment: * Assessment: 1. P ain in left foot - M79.672 (Primary) 2 . S prain of left ankle, unspecified ligament, subsequent encounter - S93.402D 3 . P ancreatic divisum - Q45.3? Plan: * Treatment: 2. S prain of left ankle, unspecified ligament, subsequent encounter Start Walking boot -, -, -, -, -, 1, Refills 0. Notes: Patient to start physical therapy in 3 days 3. P ancreatic divisum Refill Ondansetron HCl Tablet, 4 mg, take one tablet by mouth four times daily, 120 Tablet, Refills 1. * Procedure Codes: G 2211 Complex e/m visit add on * Follow Up: v ia phone to report progress * Images: Billing Information: * Visit Code: 41004 Office Visit, Est Pt., Level 4. * Procedure Codes: G2211 Complex e/m visit add on. * Electronic signature of Cherrie Dominguez MD on 04/29/2025 at 11:13 AM EDT Sign off status: Pending * Provider: Lucretia Dominguez M.D. Date: 07/03/2023 Generated for Linda carter/[place]/King[place] on: 11:13 AM EDT History and Physical Notes * HPI (History of Present Illness) Category Sub-Category Detail Notes Category Not es Ankle/Foot Pain Pt complains of lt foot pain, pt states she fell down stairs on Monday. Pt has swelling on bruising in ankle and on top of lt foot Examination Category Sub-Category Detail Notes Category Not es General Examination Extremities: extensive sw elling and bruising over the dorsum of the left foot, can almost dorsiflex to 90 degrees, tenderness over the navicular bone General Appearance: NAD
--- OUTSIDE RECORDS SUMMARY | 2024-08-19 07:45 | XMS_ITS ---
[facility] Address [address] [place] [id number] Care Team Providers Care Dag Coater Name Role Phone Casey Dominguezian Primary Care Provider Allergies No Known Allergies REASON FOR VISIT discuss medication and depression Medications Medication SIG (Take, Route, Frequency, Duration) Notes Start Date End Date Status traZODone HCl 150 MG 1 tablet at bedtime Orally Once a day; Duration: 30 day(s) 08/19/2024 Active Creon [id number] UNIT 3 cap(s) orally 3 times a day; Duration: 90 days Active Simvastatin 40 mg TAKE ONE TABLET BY M OUTH EVERY DAY AT BEDTIME; Duration: 30 days Active Vitamin D3 25 MCG (1000 UT) 2 tab(s) ora lly once a day Active Konsyl Daily Fiber 3.4 G/11 G DIRECTED ORALLY ONCE DAILY Active Ondansetron HCl 4 mg TAKE ONE TABLET BY MOUTH FOUR TIMES DAILY; Duration: 30 Active Metoclopramide HCl 10 mg TAKE ONE TABLET BY MOUTH FOUR TIMES DAILY BEFORE MEALS NEEDED; Duration: 30 Active Citracal Calcium +D3 600-40-500 MG-MG-UNIT as directed Orally 04/24/2024 Active Pantoprazole Sodium 40 MG 1 tab(s) orall y 2 times a day; Duration: 30 day(s) 12/06/2019 Active Vital Signs Blood pressure systolic 100 mm Hg 08/19/19 25 Blood pressure diastolic 60 mm Hg 025 Heart Rate 78 /min 08/19/2024 Height 63.50 in 08/19/2024 Weight 122.4 lbs 08/19/2024 BMI 21.34 kg/m2 08/19/2024 Encounters Encounter Location Date Provider Diagnosis [facility] [address] [place] [phone] 08/19/2024 Corbin Dominguez Primary insomnia F51 .01 and Depressive disorder F32.A Assessments Encounter Date Diagnosis (ICD Code) Assessment Notes Treatment Notes Treatment Clinical Notes Section Notes 08/19/2024 Primary insomnia (ICD-10 - F51.01) 08/19/2024 Depressive disorder (ICD-10 - F32.A) Plan Of Treatment Medication Medication Name Sig Start Date Stop Date Notes traZODone HCl 50 mg TAKE ONE TABLET BY M OUTH EVERY DAY DIRECTED traZODone HCl 150 MG 1 tablet at bedtime Orally Once a day; Duration: 30 day(s) 08/19/2024 Next Appt Details Follow Up: 4 Weeks, Reason: Progress Notes * Darlene SAABDOB:1950 (75 yo F)Acc No.[id number]:08/19/2024 Progress Notes Patient: Darlene DONATO Provider: Lucretia Dominguez M.D. :1950 A ge:74 Y S ex:Female Date:08/19/2024 Address:[address] [place] [address], [place], [id number] Subjective: * Chief Complaints: * 1 . Discuss medication and depression. * HPI: P sychology: 74 year old female presents with c/o depression P t states that feels like she is depressed. Pt states she has not motivation to do anything and taking a shower is a chore . Pt states she has felt like this for a couple months. She hasn't been sleeping well and wants to increase her Trazodone dose. * ROS: D ERMATOLOGY: no R rupert. n o H lex. G ASTROENTEROLOGY: no N ausea. n o V omiting. U ROLOGY: no D ifficulty urinating. n o B lood in urine. * Medical History: E sophageal Reflux, Xiong's Esophagus, Hypertension, Allergic Rhinitis, Hyperlipidemia, Renal Artery Aneurysm, Lumbar Disc Disease, MRI 2017, Lumbar Facet Arthropathy, 30 Year Smoking Hx as of 2018, Colon Polyps, Diverticulosis. * Surgical History: T [...] stic Procedure: c hildbirth , tonsilectomy , [facility] - Diverticulitis 07/30-. * Family History: [...] RECONSTITUTION DIRECTED ORALLY ONCE DAILY , Taking traZODone HCl 50 mg Tablet TAKE ONE TABLET BY MOUTH EVERY DAY DIRECTED , Taking Creon [id number] UNIT Capsule Delayed Release Particles 3 cap(s) orally 3 times a day , Taking Simvastatin 40 mg Tablet TAKE ONE TABLET BY MOUTH EVERY DAY AT BEDTIME , Taking Citracal Calcium +D3 600-40-500 MG-MG-UNIT Tablet Extended Release 24 Hour as directed Orally , Taking Pantoprazole Sodium 40 MG Tablet Delayed Release 1 tab(s) orally 2 times a day , Taking Ondansetron HCl 4 mg Tablet TAKE ONE TABLET BY MOUTH FOUR TIMES DAILY , Taking Metoclopramide HCl 10 mg Tablet TAKE ONE TABLET BY MOUTH FOUR TIMES DAILY BEFORE MEALS NEEDED , Discontinued Terbinafine HCl 250 MG Tablet 1 tablet Orally Once a day , Discontinued HYDROcodone-Acetaminophen 5-325 MG Tablet 1 tablet as needed Orally every 6 hrs , Discontinued Promethazine HCl 12.5 mg Tablet TAKE ONE TABLET BY MOUTH EVERY 8 HOURS NEEDED , Discontinued Walking boot - - - - - , Medication List reviewed and reconciled with the patient * Allergies: N .K.D.A. Objective: * Vitals: W t:122.4, Temp:97.8, BP:100/60, HR:78, Nurse:lester, Ht: 63.50, BMI:21.34. * Examination: P sychology: General Appearance: N AD. G rooming : a dequate.?Eye contact : sascha abebe. M ood : aundrea kaba. Assessment: * Assessment: 1. P rimary insomnia - F51.01 (Primary) 2 . D epressive disorder - F32.A? Plan: * Treatment: * Procedure Codes: G 2211 Complex e/m visit add on, 3074F SYST BP LT 130 MM HG, 3078F DIAST BP < 80 MM HG * Follow Up: 4 Weeks * Images: Billing Information: * Visit Code: 35138 Office Visit, Est Pt., Level 3. * Procedure Codes: G2211 Complex e/m visit add on. 3074F SYST BP LT 130 MM HG. 3078F DIAST BP < 80 MM HG. * Electronic signature of Cherrie Dominguez MD on 04/29/2025 at 11:13 AM EDT Sign off status: Pending * Provider: Lucretia Dominguez M.D. Date: 0 08/19/2024 Generated for Linda carter/[place]/King[place] on: 1 11:13 AM EDT History and Physical Notes * HPI (History of Present Illness) Category Sub-Category Detail Notes Category Not es Psychology depression Pt states that yuri eels like she is depressed. Pt states she has not motivation to do anything and taking a shower is a chore . Pt states she has felt like this for a couple months. She hasn't been sleeping well and wants to increase her Trazodone dose Examination Category Sub-Category Detail Notes Category Not es Psychology General Appearance: NAD Grooming : adequate Eye contact : normal Mood : pleasant
--- OUTSIDE RECORDS SUMMARY | 2024-09-18 07:30 | XMS_ITS ---
[facility] Address [address] [place] [phone] Care Team Providers Care [employer] Captain Name Role Phone Corbin Dominguez Primary Care Provider Allergies No Known Allergies REASON FOR VISIT refills Medications Medication SIG (Take, Route, Frequency, Duration) Notes Start Date End Date Status Ondansetron HCl 4 mg TAKE ONE TABLET BY MOUTH FOUR TIMES DAILY; Duration: 30 Active Metoclopramide HCl 10 mg TAKE ONE TABLET BY MOUTH FOUR TIMES DAILY BEFORE MEALS NEEDED; Duration: 30 Active Pantoprazole Sodium 40 mg TAKE ONE TABLE T BY MOUTH TWICE DAILY; Duration: 30 Active traZODone HCl 100 MG 1 tablet at bedtime Orally Once a day; Duration: 90 days 09/18/2024 Active Citracal Calcium +D3 600-40-500 MG-MG-UNIT as directed Orally 04/24/2024 Active Konsyl Daily Fiber 3.4 G/11 G DIRECTED ORALLY ONCE DAILY Active Creon [id number] UNIT 3 cap(s) orally 3 times a day; Duration: 90 days Active Simvastatin 40 mg TAKE ONE TABLET BY M OUTH EVERY DAY AT BEDTIME; Duration: 30 days Active Vitamin D3 25 MCG (1000 UT) 2 tab(s) ora lly once a day Active Vital Signs Blood pressure systolic 100 mm Hg 09/19/19 25 Blood pressure diastolic 60 mm Hg 025 Heart Rate 65 /min 09/18/2024 Height 63.50 in 09/18/2024 Weight 123 lbs 09/18/2024 BMI 21.44 kg/m2 09/18/2024 Encounters Encounter Location Date Provider Diagnosis [facility] [address] [place] [phone] 09/18/2024 Corbin Dominguez Primary insomnia F51 .01 and Depressive disorder F32.9 Assessments Encounter Date Diagnosis (ICD Code) Assessment Notes Treatment Notes Treatment Clinical Notes Section Notes 09/18/2024 Primary insomnia (ICD-10 - F51.01) 09/18/2024 Depressive disorder (ICD-10 - F32.9) Plan Of Treatment Medication Medication Name Sig Start Date Stop Date Notes traZODone HCl 100 MG 1 tablet at bedtime Orally Once a day; Duration: 90 days 09/18/2024 traZODone HCl 150 MG 1 tablet at bedtime Orally Once a day 08/19/2024 Next Appt Details Follow Up: 6 Months, Reason: Progress Notes * Darlene SAABDOB:1950 (75 yo F)Acc No.[id number]:09/18/2024 Progress Notes Patient: Darlene DONATO Provider: Lucretia Dominguez M.D. :1950 A ge:74 Y S ex:Female Date:09/18/2024 Address:[address] [place] [address], [place], [id number] Subjective: * Chief Complaints: * 1 . Refills. * HPI: P sychology: 74 year old female presents with c/o depression P t here for 1 mo f/u. Pt's Trazadone dose was increased to 150mg on 08/19. Pt states she is doing better since dose increase. * ROS: D ERMATOLOGY: no R rupert. [...] stic Procedure: c hildbirth , tonsilectomy , [facility] - Diverticulitis 07/30-. * Family History: [...] RECONSTITUTION DIRECTED ORALLY ONCE DAILY , Taking Creon [id number] UNIT Capsule Delayed Release Particles 3 cap(s) orally 3 times a day , Taking Simvastatin 40 mg Tablet TAKE ONE TABLET BY MOUTH EVERY DAY AT BEDTIME , Taking Citracal Calcium +D3 600-40-500 MG-MG-UNIT Tablet Extended Release 24 Hour as directed Orally , Taking Ondansetron HCl 4 mg Tablet TAKE ONE TABLET BY MOUTH FOUR TIMES DAILY , Taking Metoclopramide HCl 10 mg Tablet TAKE ONE TABLET BY MOUTH FOUR TIMES DAILY BEFORE MEALS NEEDED , Taking traZODone HCl 150 MG Tablet 1 tablet at bedtime Orally Once a day , Taking Pantoprazole Sodium 40 mg Tablet Delayed Release TAKE ONE TABLET BY MOUTH TWICE DAILY , Discontinued Promethazine HCl 12.5 MG Tablet 1 tablet as needed Orally every 6 hrs , Medication List reviewed and reconciled with the patient * Allergies: N .K.D.A. Objective: * Vitals: W t:123, Temp:98.0, BP:100/60, HR:65, Nurse:lester, Ht: 63.50, BMI:21.44. * Examination: P sychology: General Appearance: N AD. G rooming : a dequate.?Eye contact : n ormal. M ood : p sendy. Assessment: * Assessment: 1. P rimary insomnia - F51.01 (Primary) 2 . D epressive disorder - F32.9? Plan: * Treatment: * Procedure Codes: G 2211 Complex e/m visit add on, 3074F SYST BP LT 130 MM HG, 3078F DIAST BP < 80 MM HG * Follow Up: 6 Months * Images: Billing Information: * Visit Code: 00517 Office Visit, Est Pt., Level 3. * Procedure Codes: G2211 Complex e/m visit add on. 3074F SYST BP LT 130 MM HG. 3078F DIAST BP < 80 MM HG. * Electronic signature of Cherrie Dominguez MD on 04/29/2025 at 11:13 AM EDT Sign off status: Pending * Provider: Lucretia Dominguez M.D. Date: 0 09/18/2024 Generated for Linda carter/[place]/eTdarlinesmitting on: 11:13 AM EDT History and Physical Notes * HPI (History of Present Illness) Category Sub-Category Detail Notes Category Not es Psychology depression Pt here for 1 mo f/u. Pt's Trazadone dose was increased to 150mg on 08/19. Pt states she is doing better since dose increase Examination Category Sub-Category Detail Notes Category Not es Psychology General Appearance: NAD Grooming : adequate Eye contact : normal Mood : pleasant
--- OUTSIDE RECORDS SUMMARY | 2025-04-02 07:00 | XMS_ITS ---
Author Organization [facility] Address [address] [facility] [address] [place] [id number] Care Team Providers Care Consultant Electronics Name Role Phone Corbin Dominguez Primary Care Provider Allergies No Known Allergies Results Component Value Reference Range Notes P-Calcium, Ionized Reviewed date:04/04/2025 10:34:15 AM Interpretation:Normal Performing Lab: Notes/Report: CLIA: [id number] Brett Hooper MD, Orthodontist Small Business Owner [address] [place] [address] [address], [place] [address] Test performed by [facility] Calcium, Ionized 5.17 4.60-5.30 mg/dL P-Comprehensive Metabolic Pa rolando (CMP) Reviewed date:04/04/2025 10:34:15 AM Interpretation:Normal Performing Lab: Notes/Report: Test performed by [facility] [address] [place] [address] [facility] [place] [address] Brett Hooper MD, Orthodontist Small Business Owner CLIA: [id number] Sodium 143 135-145 mmol/L Potassium 4.4 3.5-5.3 mmol/L Chloride 106 97-108 mmol/L CO2 24 20-32 mmol/L Glucose 89 65-99 mg/dL BUN 10 8-23 mg/dL Creatinine 0.94 0.50-1.00 mg/dL Calcium 9.7 8.6-10.4 mg/dL eGFR by Creatinine 62 >59 mL/min/1.73m2 Protein 6.5 6.0-8.3 g/dL Albumin 4.4 3.5-5.3 g/dL Alkaline Phosphatase 100 35-121 IU/L ALT (SGPT) 16 <5-47 IU/L AST (SGOT) 18 <5-40 IU/L Bilirubin, Total 0.3 <0.2-1.2 mg/dL A/G Ratio 2.1 1.1-2.5 P-Lipid Panel Reviewed date:04/04/2025 10:34:15 AM Interpretation:Normal Performing Lab: Notes/Report: Test performed by [facility] [address] , [address], [place] [address] Brett Hooper MD, Orthodontist Small Business Owner CLIA: [id number] Cholesterol 171 <200 mg/dL Triglycerides 133 <150 mg/dL HDL Cholesterol 52 >39 mg/dL Cholesterol / HDL Ratio 3.29 0.00-4.44 Ratio Non-HDL Cholesterol 119 <130 mg/dL LDL Cholesterol (Calculation) 92 <130 mg/dL LDL Cholesterol Levels* Less than 100 mg/dL Optimal 100 to 129 mg/dL Near Optimal/ Above Optimal 130 to 159 mg/dL Borderline High 160 to 189 mg/dL High 190 mg/dL and above Very High * Categories as recommended by the 2004 ATPIII guidelines LDL/HDL Ratio 1.8 <3.3 Ratio LDL Cholesterol Patient History Test Date: 04/03/2024 LDL Results: 111 Units: mg/dL % Change: - Test Date: 04/02/2025 LDL Results: 92 Units: mg/dL % Change: -17% P-TSH reflex to FT4 Reviewed date:04/04/2025 10:34:15 AM Interpretation:Normal Performing Lab: Notes/Report: Test performed by [facility] [address] [place], [place] [address] , [place] [address] Brett Hooper MD, Orthodontist Small Business Owner CLIA: [id number] TSH reflex to FT4 0.86 0.43-5.25 mU/L P-Microalbumin/Creatinine, R andom Urine Sample Reviewed date:04/04/2025 10:34:15 AM Interpretation:Normal Performing Lab: Notes/Report: Test performed by [facility] [address] [place], [place] [address], [place] [address] Brett Hooper MD, Orthodontist Small Business Owner CLIA: [id number] Albumin/Creatinine Ratio, Urine 4 0-30 ug/m g Microalbumin, Urine, Random 0.5 Creatinine, Urine 116.2 REASON FOR VISIT med ckup Medications Medication SIG (Take, Route, Frequency, Duration) Notes Start Date End Date Status Simvastatin 40 mg 1 tablet at bedtime orally daily; Duration: 30 days Active Pantoprazole Sodium 40 mg 1 tablet orall y twice a day; Duration: 30 days Active Metoclopramide HCl 10 mg 1 tablet as nee ded orally 4 times a day; Duration: 30 days Active Creon [id number] UNIT 3 cap(s) orally 3 times a day; Duration: 90 days Active Ondansetron HCl 4 mg TAKE ONE TABLET BY MOUTH FOUR TIMES DAILY; Duration: 30 Active traZODone HCl 100 MG 1 tablet at bedtime Orally Once a day; Duration: 90 days Active Citracal Calcium +D3 600-40-500 MG-MG-UNIT as directed Orally 04/24/2024 Active Konsyl Daily Fiber 3.4 G/11 G DIRECTED ORALLY ONCE DAILY Active Vitamin D3 25 MCG (1000 UT) 2 tab(s) ora lly once a day Active Immunizations Vaccine Route Administration Date Status Comme nts Fluzone High Dose (65yr and older) IM Intramuscular 04/02/2025 Administered Vital Signs Blood pressure systolic 100 mm Hg 04/02/20 25 Blood pressure diastolic 64 mm Hg 025 Heart Rate 75 /min 04/02/2025 Height 63.50 in 04/02/2025 Weight 124 lbs 04/02/2025 BMI 21.62 kg/m2 04/02/2025 Encounters Encounter Location Date Provider Diagnosis [facility] [address] [place], [place] [id number] 04/02/2025 Corbin Dominguez Essential hypertensi on I10 ; Mixed hyperlipidemia E78.2 ; Gastroesophageal reflux disease, esophagitis presence not specified K21.9 ; Hypercalcemia E83.52 ; Primary insomnia F51.01 ; Encounter for immunization Z23 and BMI 21.0-21.9, adult Z68.21 Assessments Encounter Date Diagnosis (ICD Code) Assessment Notes Treatment Notes Treatment Clinical Notes Section Notes 04/02/2025 Essential hypertension (ICD-10 - I10) 04/02/2025 Mixed hyperlipidemia (ICD-10 - E78.2) 04/02/2025 Gastroesophageal reflux disease, esophagitis presence not specified (ICD-10 - K21.9) 04/02/2025 Hypercalcemia (ICD-10 - E83.52) 04/02/2025 Primary insomnia (ICD-10 - F51.01) 04/02/2025 Encounter for immunization (ICD-10 - Z23) 04/02/2025 BMI 21.0-21.9, adult (ICD-10 - Z68.21) Plan Of Treatment Medication Medication Name Sig Start Date Stop Date Notes traZODone HCl 100 MG 1 tablet at bedtime Orally Once a day; Duration: 90 days Next Appt Details Follow Up: 6 Months, Reason: Progress Notes * SAABDarleneDOB:1950 (75 yo F)Acc No.[id number]:04/02/2025 Progress Notes Patient: Darlene DONATO Provider: Chadwick Braga:1950 A ge:75 Y S ex:Female Date:04/02/2025 Address:[address] [place] [address] DR, [place], [id number] Subjective: * Chief Complaints: * 1 . Med ckup. * HPI: C ardiology: 75 year old female presents with c/o Blood Pressure Elevated?Pt here for checkup on hypertension. Pt states she is doing well and does not have any concerns at this time. c/o Hyperlipidemia P t is not fasting today. * Medical History: E sophageal Reflux, Xiong's [...] hildbirth , tonsilectomy , [facility] - Diverticulitis 07/30-. * Family History: F ather: , abdominal aortic aneurysm. M other: . 4 sister(s) - healthy. 2 son(s) , 1 daughter(s) - healthy. . * Social History: C URRENT TOBACCO USE: Yes S moking Status: Patient does smoke, number [...] RECONSTITUTION DIRECTED ORALLY ONCE DAILY , Taking Citracal Calcium +D3 600-40-500 MG-MG-UNIT Tablet Extended Release 24 Hour as directed Orally , Taking Metoclopramide HCl 10 mg Tablet 1 tablet as needed orally 4 times a day , Taking Pantoprazole Sodium 40 mg Tablet Delayed Release 1 tablet orally twice a day , Taking Simvastatin 40 mg Tablet 1 tablet at bedtime orally daily , Taking Ondansetron HCl 4 mg Tablet TAKE ONE TABLET BY MOUTH FOUR TIMES DAILY , Taking Creon [id number] UNIT Capsule Delayed Release Particles 3 cap(s) orally 3 times a day , Taking traZODone HCl 100 MG Tablet 1 tablet at bedtime Orally Once a day , Medication List reviewed and reconciled with the patient * Allergies: N .K.D.A. Objective: * Vitals: W t: 124, Temp: 97.8, BP: 100/64, HR: 75, Nurse: lester, Ht: 63.50, BMI:21.62. * Examination: G eneral Examination: General Appearance: N AD. H eart: R SR. L ungs:?clear to auscultation. A bdomen: bowel sounds present, soft and nontender. P eripheral pulses: n ormal (2+) bilaterally. E xtremities: n o leg edema. ? Assessment: * Assessment: 1. E ssential hypertension - I10 (Primary) 2 . M ixed hyperlipidemia - E78.2 3 . G astroesophageal reflux disease, esophagitis presence not specified - K21.9 4 . H ypercalcemia - E83.52 5 . P rimary insomnia - F51.01 6 . E ncounter for immunization - Z23 7 . B OR 21.0-21.9, adult - Z68.21 Plan: * Treatment: Value Reference Range A /G Ratio 2.1 1.1-2.5 - * A lbumin 4.4 3.5-5.3 - g/dL * A lkaline Phosphatase 100 35-121 - IU/L * A LT (SGPT) 16 <5-47 - IU/L * A ST (SGOT) 18 <5-40 - IU/L * B ilirubin, Total 0.3 <0.2-1.2 - mg/dL * B UN 10 8-23 - mg/dL * C alcium 9.7 8.6-10.4 - mg/dL * C hloride 106 97-108 - mmol/L * C O2 24 20-32 - mmol/L * C reatinine 0.94 0.50-1.00 - mg/dL * G lucose 89 65-99 - mg/dL * P otassium 4.4 3.5-5.3 - mmol/L * S odium 143 135-145 - mmol/L * P rotein 6.5 6.0-8.3 - g/dL * e GFR by Creatinine 62 >59 - mL/min/1.73m2 * Elizabeth Jones 04/04/2025 10:34: 01 AM EDT > Pt notified ?LAB: P-Microalbumin/Creatinine, Random Urine Sample (Collection Date & Time - 04/02/2025 10:12 AM)?Normal* Value Reference Range A lbumin/Creatinine Ratio, Urine 4 0-30 - ug /mg * C reatinine, Urine 116.2 - mg/dL * M icroalbumin, Urine, Random 0.5 - mg/dL * Elizabeth Jones 04/04/2025 10:34: 01 AM EDT > Pt notified 2.?Mixed hyperlipidemia?LAB: P-Comprehensive Metabolic Panel (CMP) (Collection Date & Time - 04/02/2025 10:12 AM)?Normal* Value Reference Range A /G Ratio 2.1 1.1-2.5 - * A lbumin 4.4 3.5-5.3 - g/dL * A lkaline Phosphatase 100 35-121 - IU/L * A LT (SGPT) 16 <5-47 - IU/L * A ST (SGOT) 18 <5-40 - IU/L * B ilirubin, Total 0.3 <0.2-1.2 - mg/dL * B UN 10 8-23 - mg/dL * C alcium 9.7 8.6-10.4 - mg/dL * C hloride 106 97-108 - mmol/L * C O2 24 20-32 - mmol/L * C reatinine 0.94 0.50-1.00 - mg/dL * G lucose 89 65-99 - mg/dL * P otassium 4.4 3.5-5.3 - mmol/L * S odium 143 135-145 - mmol/L * P rotein 6.5 6.0-8.3 - g/dL * e GFR by Creatinine 62 >59 - mL/min/1.73m2 * Elizabeth Jones 04/04/2025 10:34: 01 AM EDT > Pt notified ?LAB: P-Lipid Panel (Collection Date & Time - 04/02/2025 10:12 AM)?Normal* Value Reference Range C holesterol / HDL Ratio 3.29 0.00-4.44 - Ratio * C holesterol 171 <200 - mg/dL * H DL Cholesterol 52 >39 - mg/dL * L DL Cholesterol (Calculation) 92 <130 - mg/d L * L DL/HDL Ratio 1.8 <3.3 - Ratio * N on-HDL Cholesterol 119 <130 - mg/dL * T riglycerides 133 <150 - mg/dL * Elizabeth Jones 04/04/2025 10:34: 01 AM EDT > Pt notified ?LAB: P-TSH reflex to FT4 (Collection Date & Time - 04/02/2025 10:12 AM)? Normal* Value Reference Range T SH reflex to FT4 0.86 0.43-5.25 - mU/L * Elizabeth Jones 04/04/2025 10:34: 01 AM EDT > Pt notified 3.?Hypercalcemia?LAB: P-Calcium, Ionized (Collection Date & Time - 04/02/2025 10:12 AM)? Normal* Value Reference Range C alcium, Ionized 5.17 4.60-5.30 - mg/dL * Elizabeth Jones 04/04/2025 10:34: 01 AM EDT > Pt notified 4.?Primary insomnia? Refill traZODone HCl Tablet, 100 MG, 1 tablet at bedtime, Orally, Once a day, 90 days, 90, Refills 1.?? * Immunizations: Fluzone High Dose (65yr and older) : 0.5 mL (Route: Intramuscular) given by Elizabeth Jones on Right Deltoid (Encounter for immunization) * Procedure Codes: G 2211 Complex e/m visit add on, G8950 PREHTN/HTN BP DOC INDCD F/U DOC, G8352 MOST RECENT SYSTOLIC BP < 140MM HG, G8754 MOST RECENT DIASTOLIC BP < 90MM HG, 3074F SYST BP LT 130 MM HG, 3078F DIAST BP < 80 MM HG * Follow Up: 6 Months * Images: Billing Information: * Visit Code: 23576 Office Visit, Est Pt., Level 4. * Procedure Codes: G2211 Complex e/m visit add on. G8950 PREHTN/HTN BP DOC INDCD F/U DOC. G8752 MOST RECENT SYSTOLIC BP < 140MM HG. G8754 MOST RECENT DIASTOLIC BP < 90MM HG. 3074F SYST BP LT 130 MM HG. 3078F DIAST BP < 80 MM HG. * Electronic signature of Cherrie Dominguez MD on 04/29/2025 at 11:14 AM EDT Sign off status: Pending * Provider: Lucretia Dominguez M.D. Date: Generated for Linda carter/Kenya/Kingitting on: 11:14 AM EDT History and Physical Notes * HPI (History of Present Illness) Category Sub-Category Detail Notes Category Not es Cardiology Blood Pressure Elevated Pt here for checkup on hypertension. Pt states she is doing well and does not have any concerns at this time Hyperlipidemia Pt is not fasting to day Examination Category Sub-Category Detail Notes Category Not es General Examination Heart: RSR Lungs: clear to auscultatio n Abdomen: bowel sounds present , soft and nontender Extremities: no leg edema General Appearance: NAD Peripheral pulses: normal (2+) bilatera lly
--- OUTSIDE RECORDS SUMMARY | 2025-04-18 07:15 | XMS_ITS ---
[facility] Address [address] [facility] [address] [place] [id number] Care Team Providers Care Histologic Technician Name Role Phone Corbin Dominguez Primary Care Provider Allergies No Known Allergies Results Component Value Reference Range Notes CBC Venipuncture (in house) Reviewed date:04/20/2025 09:09:54 PM Interpretation: Performing Lab: Notes/Report: wbc 8.5 3.5 - 10 lymph 25.2% 15 - 50 mid 6.9% 2 - 15 gran 67.9% 35 - 80 rbc 4.39 3.5 - 5.5 hgb 14.6 11.5 - 16.5 hct 43.3 35 - 55 mcv 98.8 75 - 100 mch 33.3 25 - 35 mchc 33.7 31 - 38 platlet 269 100 - 400 P-Amylase Reviewed date:04/21/2025 10:44:50 AM Interpretation:Normal Performing Lab: Notes/Report: Test performed by [facility] [address] [place], [place] [address] [place] , [address], [place] [address] Brett Hooper MD, Humanities And Languages Professor CLIA: [id number] Amylase 36 28-100 U/L P-Comprehensive Metabolic Pa rolando (CMP) Reviewed date:04/21/2025 10:45:00 AM Interpretation:Normal Performing Lab: Notes/Report: Test performed by [facility] [address] [place], [place] [address] [place] , [address], [place] [address] Brett Hooper MD, Humanities And Languages Professor CLIA: [id number] Sodium 143 135-145 mmol/L Potassium 4.8 3.5-5.3 mmol/L Chloride 107 97-108 mmol/L CO2 25 20-32 mmol/L Glucose 96 65-99 mg/dL BUN 11 8-23 mg/dL Creatinine 0.86 0.50-1.00 mg/dL Calcium 10.1 8.6-10.4 mg/dL eGFR by Creatinine 69 >59 mL/min/1.73m2 Protein 6.5 6.0-8.3 g/dL Albumin 4.3 3.5-5.3 g/dL Alkaline Phosphatase 99 35-121 IU/L ALT (SGPT) 15 <5-47 IU/L AST (SGOT) 15 <5-40 IU/L Bilirubin, Total 0.4 <0.2-1.2 mg/dL A/G Ratio 2.0 1.1-2.5 P-Lipase Reviewed date:04/21/2025 10:45:13 AM Interpretation:Normal Performing Lab: Notes/Report: Test performed by [facility], [address] , [address] , [place] [address] Brett Hooper MD, Humanities And Languages Professor CLIA: [id number] Lipase 35.4 13.0-60.0 U/L REASON FOR VISIT nausea Medications Medication SIG (Take, Route, Frequency, Duration) Notes Start Date End Date Status Citracal Calcium +D3 600-40-500 MG-MG-UNIT as directed Orally 04/24/2024 Active Konsyl Daily Fiber 3.4 G/11 G DIRECTED ORALLY ONCE DAILY Active Vitamin D3 25 MCG (1000 UT) 2 tab(s) ora lly once a day Active Simvastatin 40 mg 1 tablet at bedtime orally daily; Duration: 90 days Active traZODone HCl 100 MG 1 tablet at bedtime Orally Once a day; Duration: 90 days Active Metoclopramide HCl 10 mg 1 tablet as nee ded orally 4 times a day; Duration: 30 days Active Ondansetron HCl 4 mg TAKE ONE TABLET BY MOUTH FOUR TIMES DAILY; Duration: 30 Active Pantoprazole Sodium 40 mg 1 tablet orall y twice a day; Duration: 30 days Active Creon [id number] UNIT 3 cap(s) orally 3 times a day; Duration: 90 days Active Vital Signs Blood pressure systolic 108 mm Hg 04/18/20 25 Blood pressure diastolic 64 mm Hg 025 Heart Rate 72 /min 04/18/2025 Height 63.50 in 04/18/2025 Weight 125.4 lbs 04/18/2025 BMI 21.86 kg/m2 04/18/2025 Encounters Encounter Location Date Provider Diagnosis [facility] [address] [place] [id number] 04/18/2025 Corbin Dominguez Nausea R11.0 Assessments Encounter Date Diagnosis (ICD Code) Assessment Notes Treatment Notes Treatment Clinical Notes Section Notes 04/18/2025 Nausea (ICD-10 - R11.0) Plan Of Treatment Next Appt Details Follow Up: via phone to repo rt test results, Reason: Progress Notes * Darlene SAABDOB:1950 (75 yo F)Acc No.[id number]:04/18/2025 Progress Notes Patient: Darlene DONATO Provider: Lucretia Dominguez M.D. :1950 A ge:75 Y S ex:Female Date:04/18/2025 Address:[address] [place] [address] [place], [id number] Subjective: * Chief Complaints: * 1 . Nausea. * HPI: G astroenterology: 75 year old female presents with c/o Nausea f or 3 weeks P t states she has been nauseated for the last few weeks. Pt states she has not had any vomiting and has no other symptoms. * Medical History: E sophageal Reflux, Xiong's [...] Schrader 07/2020. * Hospitalization/Major Diagno stic Procedure: soraida hernandez , tonsilectomy , [facility] - Diverticulitis 07/30-. * Family History: F [...] tablet orally twice a day , Taking Ondansetron HCl 4 mg Tablet TAKE ONE TABLET BY MOUTH FOUR TIMES DAILY , Taking Creon [id number] UNIT Capsule Delayed Release Particles 3 cap(s) orally 3 times a day , Taking traZODone HCl 100 MG Tablet 1 tablet at bedtime Orally Once a day , Taking Simvastatin 40 mg Tablet 1 tablet at bedtime orally daily , Medication List reviewed and reconciled with the patient * Allergies: N .K.D.A. Objective: * Vitals: W t: 125.4, Temp: 98.3, BP: 108/64, HR: 72, Nurse: EWA, Ht: 63.50, BMI:21.86. * Examination: G astroenterology: General Appearance: p leasant, NAD. O ral cavity: n ormal. S clera: a nicteric. H eart sounds: r egular, normal S1 S2. L ungs: c lear, no rales or wheezes. A bdomen: B S present, soft, nontender, no guarding or rigidity, no masses felt. Assessment: * Assessment: 1. N ausea - R11.0 (Primary) Plan: * Treatment: Value Reference Range A mylase 36 28-100 - U/L * Angelica Corbin Rudolph 04/20/2025 09:10:14 PM EDT > Sent to to inform of normal results.FitoJoy agustin 04/21/2025 10:44:43 AM EDT >pt informed ?LAB: P-Comprehensive Metabolic Panel (CMP) (Collection Date & Time - 04/18/2025 10:29 AM)?Normal* Value Reference Range A /G Ratio 2.0 1.1-2.5 - * A lbumin 4.3 3.5-5.3 - g/dL * A lkaline Phosphatase 99 35-121 - IU/L * A LT (SGPT) 15 <5-47 - IU/L * A ST (SGOT) 15 <5-40 - IU/L * B ilirubin, Total 0.4 <0.2-1.2 - mg/dL * B UN 11 8-23 - mg/dL * C alcium 10.1 8.6-10.4 - mg/dL * C hloride 107 97-108 - mmol/L * C O2 25 20-32 - mmol/L * C reatinine 0.86 0.50-1.00 - mg/dL * G lucose 96 65-99 - mg/dL * P otassium 4.8 3.5-5.3 - mmol/L * S odium 143 135-145 - mmol/L * P rotein 6.5 6.0-8.3 - g/dL * e GFR by Creatinine 69 >59 - mL/min/1.73m2 * Corbin Dominguez 04/20/2025 09:10:14 PM EDT > Sent to to inform of normal results.Joy Payton 04/21/2025 10:44:56 AM EDT >pt informed ?LAB: P-Lipase (Collection Date & Time - 04/18/2025 10:29 AM)?Normal* Value Reference Range L ipase 35.4 13.0-60.0 - U/L * Corbin Dominguez 04/20/2025 09:10:14 PM EDT > Sent to to inform of normal results.Joy Payton 04/21/2025 10:45:08 AM EDT >pt informed ?LAB: CBC Venipuncture (in house) (Collection Date & Time - 04/18/2025)* Value Reference Range w bc 8.5 3.5 - 10 * l ymph 25.2% 15 - 50 * m id 6.9% 2 - 15 * g ran 67.9% 35 - 80 * r bc 4.39 3.5 - 5.5 * h gb 14.6 11.5 - 16.5 * h ct 43.3 35 - 55 * m cv 98.8 75 - 100 * m ch 33.3 25 - 35 * m chc 33.7 31 - 38 * p latlet 269 100 - 400 * Rosemarie Kline 04/18/2025 11 :46:10 AM EDT >Corbin Dominguez 04/20/2025 09:09:50 PM EDT > * Procedure Codes: G 2211 Complex e/[place], [address] CBC WITH AUTO DIFF * Follow Up: v ia phone to report test results * Images: Billing Information: * Visit Code: 48963 Office Visit, Est Pt., Level 3. * Procedure Codes: G2211 Complex e/[place]. [address] CBC WITH AUTO DIFF. * Electronic signature of Cherrie Dominguez MD on 04/29/2025 at 11:14 AM EDT Sign off status: Pending * Provider: Lucretia Dominguez M.D. Date: Generated for Stephanii ng/Tedg/eTransmitting on: 11:14 AM EDT History and Physical Notes * HPI (History of Present Illness) Category Sub-Category Detail Notes Category Not es Gastroenterology Nausea Pt states she h as been nauseated for the last few weeks. Pt states she has not had any vomiting and has no other symptoms Examination Category Sub-Category Detail Notes Category Not es Gastroenterology Oral cavity: normal Sclera: anicteric Heart sounds: regular, normal S1 S 2 Lungs: clear, no rales or w heezes Abdomen: BS present, soft, no ntender, no guarding or rigidity, no masses felt General Appearance: pleasant, NAD
--- OUTSIDE RECORDS SUMMARY | 2025-04-29 11:13 | XMS_ITS | Encounter Summary ---
Author Organization [facility] Address [address] [place] [address] Care Team Providers Care Security Operations Engineer Name Role Phone Corbin Dominguez MD Primary Care Provider + [phone] Encounter Details Date Type Department Care Team (Late st Contact Info) Description 11/27/2012 Conversion Encounter [facility] HISTORICAL CONV [address] [place] [address] Interface, See Report Social History Tobacco Use Types Packs/Day Years Used Date Smoking Tobacco: Never Assessed Comments Unknown Sex and Gender Information Value Date Recorded Sex Assigned at Not on file Legal Sex Female 10:07 AM EDT Gender Identity Not on file Sexual Orientation Not on file documented as of this encounter Progress Notes * Interface, See Report - 11/27/2012 12:00 AM EDT [facility] [address] [place], [place] [id number] Patient: DARLENE SAAB. MR #: : [id number] Date of Visit: 11/27/2012 Attending Physician: Carmina Merino Dictated By: CARMINA MERINO Referring Physician: Diagnosis: ANNUAL Allergies: NKDA History of present illness: ANNUAL WWE. 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 62 yo female here for annual exam. She is doing well, denies any problems at today's visit. She was prev iously on a regimen of vaginal estrogen with provera 7 days of each month. She has stopped use of these medications, and denies any return of symptoms. Her bowels and bladder are working well, and she denies vaginal bleeding or spotting. Her mammogram is due in 02/12, colonoscopy is UTD, and BMD is managed per her PCP. Present family and/or social history: Family history: Father - Colon CA. Uncle - Colon CA. Uncle - Kidney CA. Social history: Tobacco Y N PPD ETOH Y N # Drinks Marital Status Occupation RETIRED Past medical history: Medical: HYPERTENSION; HYPERLIPIDEMIA; LUIS ALBERTO' S ESOPHAGUS; GERD; SINUS Surgical: TONSILS; BREAST CYST; BREAST REDUCTION Health maintenance: Mammogram: Colonoscopy: Pap smear: 11/24/11 Tumor Marker: CT Scan:BMD: Review of systems: Constitutional: No change in weight, no excessive fatigue Psychiatric: No history of anxiety, depression, bipolar disorder, or insomnia Eyes: +GLASSES. Vision unchanged Ears, Nose, Mouth, Throat: +SINUS. Hearing normal, no swallowing difficulties, no sore throat Endocrine: No history of diabetes, thyroid disease, heat/cold intolerance Lymphatic: No enlarged lymph nodes Respiratory: No shortness of breath, cough, asthma, wheezing Cardiovascular: +HTN; +HYPERLIPIDEMIA. No angina, orthopnea, edema, murmur Gastrointestinal: +GERD; +BARRETS. No constipation or diarrhea, nausea, or vomiting Genitourinary: No dysuria, hematuria, urgency, or frequency Neurologic: No numbness, weakness, syncope, seizures, or headaches Musculoskeletal: No muscle weakness, or joint pain Integumentary: No new skin lesions Gynecologic: No abnorma l bleeding, vaginal discharge, pelvic pain, of h/o abnml pap smears LMP: P: 3 Vag Deliveries: 3 C-sec: 0 Misc: 0 Hematologic: No history of anemia, easy bruising, or blood clots Medications: Medication Reconciliation for the patient has been reviewed in the EMR. Physical exam: Constitutional: Weight 133 Height 63 BP 9866 Pulse Temp Neurological/Psychiatric: HEENT: Neck: Respiratory: Cardiovascular: Breasts: , scars bilaterally consistent with prior cosmetic surgery Gastrointestinal: Lymphatic: Extremities: Skin: Gynecologic: External Genitalia: Vagina: Cervix: Uterus: Ovaries: Parametria: Smooth. Rectovaginal: Hemoccult: Procedure note: Assessment: Annual Well Woman Exam Plan: Mamm due 02/12 RTC Approved by: Carmina Merino 10:41 AM , 11/27/2012 cc: documented in this encounter Plan of Treatment Not on file documented as of this encounter Visit Diagnoses Not on filedocumented in this encounter Care Teams Security Operations Engineer Relationship Specialty Start Date End Date Corbin Dominguez MD [address] [facility] [address] [facility] [address] [place] [address] PCP - General 02/24/15 documented as of this encounter
--- OUTSIDE RECORDS SUMMARY | 2025-04-29 11:13 | XMS_ITS | Clinical Summary ---
Author Organization Healthcare Address [address] [place] [address] Care Team Providers Care Wash Test Checker Name Role Phone Corbin Dominguez MD Primary Care Provider [phone] Allergies No known active allergies Medications busPIRone (Buspar) 10 MG tablet TAKE 1 TABLET DAILY. 0 Active cholecalciferol (Vitamin D-3) 50 MCG (1999 UT) tablet Take 4,000 Units by mouth 1 (one) time each day. Active pancrelipase, Crs-Mbbk-Heeu, (Creon) 74760-593366 units capsule delayed-release particles capsule 0 Active promethazine (Phenergan) 12.5 MG tablet TAKE ONE TABLET BY MOUTH EVERY 6 HOURS NEEDED MAY CAUSE DROWSINESS 1 Active simvastatin (Zocor) 40 MG tablet TAKE 1 TABLET DAILY. 0 Active pantoprazole (Protonix) 40 MG EC tablet Take 1 tablet (40 mg total) by mouth 2 (two) times a day before meals. 60 tablet 1 Active Metoclopramide HCl (Gimoti) 15 MG/ACT solution Administer 15 mg into affected nostril(s) 4 (four) times a day. Active ALPRAZolam (Xanax) 0.25 MG tablet TAKE ONE TABLET BY MOUTH THREE TIMES DAILY NEEDED MAY CAUSE DROWSINESS 2 Active clobetasol (Temovate) 0.05 % external solution 2 Active escitalopram (Lexapro) 10 MG tablet Take 10 mg by mouth 1 (one) time each day. 2 Active polyethylene glycol (Miralax) 17 GM/SCOOP powder DISSOLVE 17 GRAMS OF POWDER INTO 4 TO 8 OUNCES OF WATER, JUICE, SODA, COFFEE, OR TEA THEN DRINK EVERY DAY 2 Active finasteride (Proscar) 5 MG tablet Take 2.5 mg by mouth 1 (one) time each day. 3 Active traZODone (Desyrel) 50 MG tablet Take 50 mg by mouth 1 (one) time each day. as directed 3 Active ondansetron (Zofran) 4 MG tablet TAKE ONE TABLET BY MOUTH FOUR TIMES DAILY 120 tablet 2 3 Active Active Problems Problem Noted Date Diagnosed Date Gastroparesis 06/07/2021 Pancreatic cyst 06/07/2021 Chronic antral gastritis 06/07/2021 Immunizations Immunization Administration Dates Next Due Influenza, high-dose, quadrivalent 03/23/2021,,04/10/2017 Moderna COVID-19 Vaccine (Re d Cap) 12+ years 04/14/2021,08/10/2020,07/10/2020 Moderna COVID-19 Vaccine Bivalent 6months+ 04/19 Pneumococcal 20-magdaleno Conj Vaccine 07/21/2022 Pneumococcal Polysaccharide PPV23 04/10/2017 Tdap 01/18/2017 Family History Medical History Relation Name Comments Colon cancer Father Cardiac disorder Mother Stroke Mother Relation Name Status Comments Father Mother Social History Tobacco Use Types Packs/Day Years Used Date Smoking Tobacco: Former Cigarettes 0.3 30 1 - 2019 Smokeless Tobacco: Never Tobacco Cessation:Counseling Given: Not Answered Alcohol Use Standard Drinks/Week Comments No 0 (1 standard drink = 0.6 oz pur e alcohol) PHQ-2 Answer Date Recorded Patient Health Questionnaire-2 Score 0 11/02/2022 PHQ-2A Answer Date Recorded Patient Health Questionnaire-2 Score 0 11/02/2022 Comments Unknown Sex and Gender Information Value Date Recorded Sex Assigned at Not on file Legal Sex Female 6:20 PM EDT Gender Identity Not on file Sexual Orientation Not on file Last Filed Vital Signs Vital Sign Reading Time Taken Comments Blood Pressure 109/73 11/02/2022 1:32 PM EDT Pulse 64 11/02/2022 1:32 PM EDT Temperature 36.4 C (97.5 F) 11/02/2022 1:32 PM EDT Respiratory Rate - - Oxygen Saturation 96% 11/02/2022 1:32 PM EDT Inhaled Oxygen Concentration - - Weight 58.5 kg (128 lb 15.5 oz) 11/02/2022 1:32 PM EDT Height 160 cm (5' 3 ) 11/02/2022 1:32 PM EDT Body Mass Index 22.85 11/02/2022 1:32 PM EDT Plan of Treatment Health Maintenance Due Date Last Done Comments [facility]-Bone Density Scan 1950 [facility]-Hepatitis C Screening 1950 [facility]-Medicare Annual Wellness (AWV) 1950 [facility]-Infant/Child/Adol SDOH Screenings 1950 [facility]- SDOH Screenings 02/01/1966 [facility]-Adult SDOH Screenings 02/01/1966 [facility]-Zoster Vaccines (1 of 2) 02/01/1998 [facility]-RSV Vaccine: 60+ Years or (1 - 1-dose 75+ series) 02/01/2023 [facility]-Depression Screening 11/03/2023 11/02/2022 [facility]-BRSXH-60 Vaccine ( season) 2025 04/19/2022, 04/14/2021, 08/10/2020, Additional history exists [facility]-Influenza Vaccine (#1) 03/03/202503/23, 04/02/2020, 04/10/2017 [facility]-DTaP,Tdap,and Td Vaccines (2 - Td or Tdap) 01/18/2027 01/18/2017 [facility]-Pneumococcal Vaccine: 50+ Years Completed 07/21/2022, 04/10/2017 [facility]-Breast Cancer Screening Discontinued 10/07/2022, 10/07/2022, 10/06/2021, Additional history exists HPV Vaccines Aged Out No longer eligi ble based on patient's age to complete this topic [facility]-HIB Vaccines Aged Out No longer e ligible based on patient's age to complete this topic [facility]-Hepatitis A Vaccines Aged Out No longer eligible based on patient's age to complete this topic [facility]-IPV Vaccines Aged Out No longer e ligible based on patient's age to complete this topic [facility]-Rotavirus Vaccines Aged Out No lo nger eligible based on patient's age to complete this topic Insurance [facility] Care Teams Wash Test Checker Relationship Specialty Start Date End Date Corbin Dominguez MD [address] [facility] [address] [place] [address] PCP - General 11/13/20
--- OUTSIDE RECORDS SUMMARY | 2025-04-29 11:14 | XMS_ITS | Encounter Summary ---
Author Organization Healthcare Address [address] [place] [address] Care Team Providers Care Satellite Television Installer Name Role Phone Corbin Dominguez MD Primary Care Provider [phone] Reason for Visit * Reason Comments Med Refill Encounter Details Date Type Department Care Team (Late st Contact Info) Description 08/02/2021 [facility] [address] [place] [address] Cristal Vazquez MD [address] [place] [address] Social History Tobacco Use Types Packs/Day Years Used Date Smoking Tobacco: Former Smokeless Tobacco: Never Alcohol Use Standard Drinks/Week Comments No 0 (1 standard drink = 0.6 oz pur e alcohol) PHQ-2 Answer Date Recorded Patient Health Questionnaire-2 Score 0 06/07/2021 Comments Unknown Sex and Gender Information Value Date Recorded Sex Assigned at Not on file Legal Sex Female 6:20 PM EDT Gender Identity Not on file Sexual Orientation Not on file documented as of this encounter Plan of Treatment Not on file documented as of this encounter Visit Diagnoses Not on filedocumented in this encounter Additional Health Concerns Assessment Noted Time A fall risk assessment has been complete d for the patient 06/07/2021 11:14 AM EST documented as of this encounter Care Teams Satellite Television Installer Relationship Specialty Start Date End Date Corbin Dominguez MD [address] [place] [address] PCP - General 11/13/20 documented as of this encounter
--- OUTSIDE RECORDS SUMMARY | 2025-04-29 11:15 | XMS_ITS | Patient Health Record ---
Author Organization [facility] Address [address] [facility] [address] [place] [id number] Care Team Providers Care Utilities Ground Worker Name Role Phone Corbin Dominguez Primary Care Provider Cholo Chaney Adam Unavailable [phone] Allergies No Known Allergies Results Component Value Reference Range Notes P-Calcium, Ionized Reviewed date:04/04/2025 10:34:15 AM Interpretation:Normal Performing Lab: Notes/Report: Test performed by [facility] [address] [place] [address] , [address], [place] [address] Brett Hooper MD, Makeup Editor CLIA: [id number] Calcium, Ionized 5.17 4.60-5.30 mg/dL P-Comprehensive Metabolic Pa rolando (CMP) Reviewed date:04/04/2025 10:34:15 AM Interpretation:Normal Performing Lab: Notes/Report: Test performed by [facility] [address] [place] [address] , [address], [place] [address] Brett Hooper MD, Makeup Editor CLIA: [id number] Sodium 143 135-145 mmol/L Potassium 4.4 3.5-5.3 [...] Interpretation:Normal Performing Lab: Notes/Report: Test performed by [facility] [address] , [address], [place] [address] Brett Hooper MD, Makeup Editor CLIA: [id number] Cholesterol 171 <200 mg/dL Triglycerides 133 <150 [...] Interpretation:Normal Performing Lab: Notes/Report: Test performed by [facility] [address] [place] [address] , [address], [place] [address] Brett Hooper MD, Makeup Editor CLIA: [id number] TSH reflex to FT4 0.86 0.43-5.25 mU/L P-Microalbumin/Creatinine, R andom Urine Sample Reviewed date:04/04/2025 10:34:15 AM Interpretation:Normal Performing Lab: Notes/Report: Test performed by [facility] [address] [place] [address] , [address], [place] [address] Brett Hooper MD, Makeup Editor CLIA: [id number] Albumin/Creatinine Ratio, Urine 4 0-30 ug/m g Microalbumin, Urine, Random 0.5 Creatinine, Urine 116.2 P-Lipase Reviewed date:04/21/2025 10:45:13 AM Interpretation:Normal Performing Lab: Notes/Report: Test performed by [facility] [address] [place] [address] , [address], [place] [address] Brett Hooper MD, Makeup Editor CLIA: [id number] Lipase 35.4 13.0-60.0 U/L P-Comprehensive Metabolic Pa rolando (CMP) Reviewed date:04/21/2025 10:45:00 AM Interpretation:Normal Performing Lab: Notes/Report: Test performed by [facility] [address] [place] [address] , [address], [place] [address] Brett Hooper MD, Makeup Editor CLIA: [id number] Sodium 143 135-145 mmol/L Potassium 4.8 3.5-5.3 [...] 0.4 <0.2-1.2 mg/dL A/G Ratio 2.0 1.1-2.5 P-Amylase Reviewed date:04/21/2025 10:44:50 AM Interpretation:Normal Performing Lab: Notes/Report: Test performed by [facility], [address] , [address], [place] [address] Brett Hooper MD, Makeup Editor CLIA: [id number] Amylase 36 28-100 U/L CBC Venipuncture (in house) Reviewed date:04/20/2025 09:09:54 [...] - 38 platlet 269 100 - 400 X ray : Ankle, left Reviewed date:05/01/2024 12:35:47 PM Interpretation:no fracture Performing Lab: Notes/Report: no fracture X ray : Foot, left Reviewed date:05/01/2024 12:36:45 PM Interpretation:no fracture Performing Lab: Notes/Report: no fracture Medications Medication SIG (Take, Route, Frequency, Duration) Notes Start Date End Date Status Citracal Calcium +D3 600-40-500 MG-MG-UNIT as directed Orally 04/24/2024 Active Ondansetron HCl 4 mg TAKE ONE TABLET BY MOUTH FOUR TIMES DAILY; Duration: 30 Active Metoclopramide HCl 10 mg 1 tablet as nee ded orally 4 times a day; Duration: 30 days Active Konsyl Daily Fiber 3.4 G/11 G DIRECTED ORALLY ONCE DAILY Active Vitamin D3 25 MCG (1000 UT) 2 tab(s) ora lly once a day Active Pantoprazole Sodium 40 mg 1 tablet orall y twice a day; Duration: 30 days Active Simvastatin 40 mg 1 tablet at bedtime orally daily; Duration: 90 days Active traZODone HCl 100 MG 1 tablet at bedtime Orally Once a day; Duration: 90 days Active Creon [id number] UNIT 3 cap(s) orally 3 times a day; Duration: 90 days Active Immunizations Vaccine Route Administration Date Status Comme nts COVID 19 Moderna Unknown 07/10/2020 Administered COVID 19 Moderna Unknown 08/10/2020 Administered COVID 19 Moderna Unknown 04/14/2021 Administered Fluzone High Dose (65yr and older) IM Intramuscular 07/04/2015 Administered Fluzone High Dose (65yr and older) IM Intramuscular 04/14/2016 Administered Fluzone High Dose (65yr and older) IM Intramuscular 04/10/2017 Administered Fluzone High Dose (65yr and older) IM Intramuscular 04/18/2018 Administered Fluzone High Dose (65yr and older) IM Intramuscular 04/02/2020 Administered Fluzone High Dose (65yr and older) IM Intramuscular 03/23/2021 Administered Given By Marleny Kline Fluzone High Dose (65yr and older) IM Intramuscular 03/24/2023 Administered Fluzone High Dose (65yr and older) IM Intramuscular 03/13/2024 Administered Fluzone High Dose (65yr and older) IM Intramuscular 04/02/2025 Administered PNEUMOVAX 23 VACCINE IM Intramuscular 04/10/2017 Administe red Prevnar (PCV13) IM Intramuscular 07/04/2015 Administered Prevnar (PCV20) IM Intramuscular 07/21/2022 Administered Shingrix IM Intramuscular 06/12/2018 Administered Tetanus Tdap-Adacel (over 7yrs) IM Intramuscular 01/18/2017 Administered xAdministration of injection IM Intramuscular 08/08/2013 Administered xFluzone High Dose-private (65yr&older) IM Intramuscular 05/01/2014 Administered gGsogcck-qhhwprnfu-fr dicare pts. IM Intramuscular 08/08/2013 Administered Problems Problem Type SNOMED Code ICD Code Onset Dates Problem Status W/U Status Risk Notes Problem Hypercalcemia (63027059) Hypercalcemia (E83.52) Active confirmed Problem Essential hypertension (82953167) Essential hypertension (I10) Active confirmed Problem Diverticulitis (20245649) Diverticulitis (K57.92) Active confirmed Problem Solitary nodule of lung (920105516) Lung nodule (R91.1) Active confirmed Problem Degeneration of lumbar intervertebral disc (69299282) Degenerative disc disease, lumbar (M51.36) Active confirmed Problem Mixed hyperlipidemia (142865944) Mixed hyperlipidemia (E78.2) Active confirmed Problem Primary insomnia (0599529) Primary insomnia (F51.01) Active confirmed Problem Xiong's esophagus (284574498) Xiong's esophagus without dysplasia (K22.70) Active confirmed Problem Degeneration of lumbar intervertebral disc (07266111) Lumbar degenerative disc disease (M51.36) Active confirmed Problem Depressive disorder (21438450) Depressive disorder (F32.9) Active confirmed Problem Constipation (38797677) Constipation, unspecified constipation type (K59.00) Active confirmed Problem Gastroesophageal reflux disease (285100273) Gastroesophageal reflux disease, esophagitis presence not specified (K21.9) Active confirmed Problem Leukocytosis (812021070) Leukocytosis, unspecified type (D72.829) Active confirmed Problem Hyperlipidaemia (56607713) Hyperlipidemia, unspecified hyperlipidemia type (E78.5) Active confirmed Problem Diverticulosis of colon (839548998) Diverticulosis of colon (K57.30) Active confirmed Problem Diverticulitis of sigmoid colon (941260584) Diverticulitis of sigmoid colon (K57.32) Active confirmed Problem Tobacco user (603878500) Cigarette nicotine dependence without complication (F17.210) Active confirmed Problem Chronic pancreatitis (613409442) Chronic pancreatitis, unspecified pancreatitis type (K86.1) Active confirmed Problem Arthropathy of lumba r facet joint (348222410) Lumbar facet arthropathy (M12.88) Active confirmed Problem Pure hypercholesterolemia (075405142) Pure hypercholesterolemia (E78.00) Active confirmed Problem Sciatica (77161200) Left-sided l ow back pain with left-sided sciatica, unspecified chronicity (M54.42) Active confirmed Problem Osteopenia of bill mbar spine (M85.88) Active confirmed Problem Diverticular disease of colon (729519702) Colon, diverticulosis (K57.30) Active confirmed Problem Pancreatic divisum (52195482) Pancreatic divisum (Q45.3) Active confirmed Vital Signs Heart Rate 72 /min 04/18/2025 Blood pressure diastolic 64 mm Hg 04/18/2025 Height 63.50 in 04/18/2025 Blood pressure systolic 108 mm Hg 04/18/2025 Weight 125.4 lbs 04/18/2025 BMI 21.86 kg/m2 04/18/2025 Encounters Encounter Location Date Provider Diagnosis [facility] [address] [place], [place] [id number] 04/28/2025 Corbin [place] [facility] [address] [place], [place] [id number] 04/30/2024 Corbin [place] [facility] [address] [place], [place] [id number] 05/01/2024 R Adam Shiv [facility] [address] [place], [place] [id number] 05/01/2024 Corbin [place] [facility] [address] [place], [place] [id number] 05/24/2024 Corbin [place] [facility] [address] [place], [place] [id number] 06/21/2024 Corbin [place] [facility] [address] [place], [place] [id number] 08/27/2024 Corbin [place] [facility] [address] [place], [place] [id number] 04/30/2024 R Adam Shiv Foot injury S99.929A [facility] [address] [place], [place] [id number] 05/03/2024 Corbin [place] Pain in left foot M7 9.672 ; Sprain of left ankle, unspecified ligament, subsequent encounter S93.402D and Pancreatic divisum Q45.3 [facility] [address] [place] [id number] 08/19/2024 Corbin [place] Primary insomnia F51 .01 and Depressive disorder F32.A [facility] [address] [place], [place] [id number] 09/18/2024 Corbin [place] Primary insomnia F51 .01 and Depressive disorder F32.9 [facility] [address] [place], [place] [id number] 04/02/2025 Corbin [place] Essential hypertensi on I10 ; Mixed hyperlipidemia E78.2 ; Gastroesophageal reflux disease, esophagitis presence not specified K21.9 ; Hypercalcemia E83.52 ; Primary insomnia F51.01 ; Encounter for immunization Z23 and BMI 21.0-21.9, adult Z68.21 [facility] [address] [facility] [address] [place] [id number] 04/18/2025 Corbin [place] Nausea R11.0 Assessments Encounter Date Diagnosis (ICD Code) Assessment Notes Treatment Notes Treatment Clinical Notes Section Notes 04/30/2024 Foot injury (ICD-10 - S99.929A) Will obtain x-rays to rule out fracture. Recommend ice and elevation of the foot. 05/03/2024 Pain in left foot (ICD-10 - M79.672) 05/03/2024 Sprain of left ankle, unspecified ligament, subsequent encounter (ICD-10 - S93.402D) Patient to start physical therapy in 3 days 04/02/2025 Essential hypertension (ICD-10 - I10) 04/02/2025 Mixed hyperlipidemia (ICD-10 - E78.2) 08/19/2024 Primary insomnia (ICD-10 - F51.01) 08/19/2024 Depressive disorder (ICD-10 - F32.A) 04/18/2025 Nausea (ICD-10 - R11.0) 09/18/2024 Primary insomnia (ICD-10 - F51.01) 09/18/2024 Depressive disorder (ICD-10 - F32.9) 04/02/2025 Gastroesophageal reflux disease, esophagitis presence not specified (ICD-10 - K21.9) 05/03/2024 Pancreatic divisum (ICD-10 - Q45.3) 04/02/2025 Hypercalcemia (ICD-10 - E83.52) 04/02/2025 Primary insomnia (ICD-10 - F51.01) 04/02/2025 Encounter for immunization (ICD-10 - Z23) 04/02/2025 BMI 21.0-21.9, adult (ICD-10 - Z68.21) Plan Of Treatment No Information Insurance Providers Payer Name Payer Address Payer Phone Subscriber Number Group Number Insured Name Patient Relationship to Insured Coverage Start Date Coverage End Date [employer] [address] [address] [place], [place] [id number] Saab Darlene Self - patient is the insured Medications Administered Medication Instructions Date of Administration Dosage Notes B-12 07/27/2022 1 mL Medical (General) History Medical History History ICD Code Esophageal Reflux Xiong's Esophagus Hypertension Allergic Rhinitis Hyperlipidemia Renal Artery Aneurysm Lumbar Disc Disease, MRI 2016 Lumbar Facet Arthropathy 30 Year Smoking Hx as of 2018 Colon Polyps Diverticulosis Surgical History Surgery Date(Month/Year) Tonsilectomy lump removed from right breast colonoscopy 2010 EGD, numerous, most recent 2016 colonoscopy 2015 colonoscopy 2018 cholecystectomy 03/2018 Colon Resection w/ Low Anter ior Splenic Flexure Mobilization, Rectopexty, Appendectomy, BSO 07/30- ERCP 03/14/2020 EGD with EUS and pancreatic biopsies at - Dr. Schrader 07/2020 Hospitalization History Reason Date(Month/Year) [facility] - Diverticulitis 07/30- tonsilectomy
--- OUTSIDE RECORDS SUMMARY | 2025-04-29 11:15 | XMS_ITS | Clinical Summary ---
Author Organization [facility] Address [address] [place] [address] Care Team Providers Care Electric Razor Mechanic Name Role Phone Corbin Dominguez MD Primary Care Provider [phone] Allergies No known active allergies Medications metoclopramide (REGLAN) 10 MG tablet Take 10 mg by mouth 4 (Four) Times a Day As Needed. Active lansoprazole (PREVACID) 15 MG capsule Take 15 mg by mouth 2 (Two) Times a Day. Active traZODone (DESYREL) 50 MG tablet Take 2 tablets by mouth Every Night. 07/09/2018 Active simvastatin (ZOCOR) 40 MG tablet Take 1 tablet by mouth Every Night. 07/02/2018 Active benazepril-hydr ochlorthiazide (LOTENSIN HCT) 20-25 MG per tablet Take 1 tablet by mouth Every Morning. Active Cholecalciferol (VITAMIN D3) 2000 units tablet Take 4,000 Units by mouth Every Morning. Active oxyCODONE-aceta minophen (PERCOCET) 5-325 MG per tablet Take 1 tablet by mouth Every 6 (Six) Hours As Needed for Severe Pain for up to 8 doses. 8 tablet 08/02/2018 Active Active Problems Problem Noted Date Diagnosed Date Diverticulitis 07/30/2018 GERD (gastroesophageal reflux disease) 9 Hyperlipidemia 07/30/2018 Hypertension 07/30/2018 Well female exam with routine gynecological exam 02/10/2016 Screening for cervical cancer 02/10/2016 Pelvic pain 02/10/2016 Encounters Date Type Department Care Team Description 02/07/2025 10:45 AM EDT - 02/07/2025 11:59 PM EDT Hospital Encounter [facility] [id number] Corbin Dominguez MD Visit for screening mammogram Discharge Disposition: Home or Self Care 02/07/2025 Travel from Last 3 Months Family History Medical History Relation Name Comments Cancer Father colon Cancer Other colon Breast cancer Neg Hx Ovarian cancer Neg Hx Relation Name Status Comments Father Other Social History Tobacco Use Types Packs/Day Years Used Date Smoking Tobacco: Former Cigarettes 0.5 20 1 08/1997 - 06/2018 Smokeless Tobacco: Never Alcohol Use Standard Drinks/Week Comments No 0 (1 standard drink = 0.6 oz pur e alcohol) Comments No Sex and Gender Information Value Date Recorded Sex Assigned at Not on file Legal Sex Female 10:07 AM EDT Gender Identity Not on file Sexual Orientation Not on file Last Filed Vital Signs Vital Sign Reading Time Taken Comments Blood Pressure 124/79 08/02/2018 7:43 AM EST Pulse 86 08/02/2018 7:43 AM EST Temperature 36 C (96.8 F) 08/02/2018 7:43 AM EST Respiratory Rate 16 08/02/2018 7:43 AM EST Oxygen Saturation 93% 08/01/2018 7:41 AM EST Inhaled Oxygen Concentration - - Weight 58.1 kg (128 lb) 07/30/2018 12:17 PM EST Height 160 cm (5' 3 ) 07/30/2018 12:17 PM EST Body Mass Index 22.67 07/30/2018 12:17 PM EST Plan of Treatment Health Maintenance Due Date Last Done Comments LIPID PANEL 1950 COLOGUARD 02/01/1993 COLON CANCER SCREENING 5 YEA R SIGMOIDOSCOPY 02/01/1993 CT COLONOGRAPHY 02/01/1993 FIT Testing (1 year) 02/01/1993 ZOSTER VACCINE (1 of 2) 02/01/1998 DXA SCAN 07/03/2015 07/03/2013 FECAL OCCULT BLOOD TEST 02/09/2017 02/10/2016 ANNUAL PHYSICAL 02/15/2017 HEPATITIS C SCREENING 02/15/2017 RSV Vaccine - Adults (1 - 1- dose 75+ series) 02/01/2023 COLONOSCOPY 02/19/2023 02/19/2018, 01/31/2015 COLORECTAL CANCER SCREENING 02/19/2023 INFLUENZA VACCINE 01/31/2025 03/23/2021, , 04/10/2017 COVID-19 Vaccine (2023-2 5 season) 2025 03/13/2024, 04/19/2022, 04/14/2021, Additional history exists TDAP/TD VACCINES (2 - Td or Tdap) 01/18/2027 017 MAMMOGRAM 02/07/2027 02/07/2025, 12/31, 10/07/2022, Additional history exists Pneumococcal Vaccine 50+ Completed 07/21/2022, 03/2017 Medical Devices Implanted Type Area Commercial Management Accountant Device Identifier Shelf Expiration Date Model / Serial / Lot Reload Stplr Lnr Cut Prox Thk 55 Grn - Sna - [id number] Implanted:Qty : 1 on 07/30/2018 by Delroy Godoy MD at [facility] Implant N/A: Abdomen [employer] 04/02/2019 [id number] / [id number] / [id number] Procedures Procedure Name Priority Date/Time Associated Diagnosis Comments MAMMO SCREENING DIGITAL TOMOSYNTHESIS BILATERAL W CAD Routine 02/07/2025 11:28 AM EDT Visit for screening mammogram POCT OCCULT BLOOD STOOL Routine 02/10/2016 11:45 AM EDT Well female exam with routine gynecological exam from Last 3 Months or Most Recently Relevant to Health Maintenance Results * Mammo Screening Digital Tomosynthesis Bilateral With CAD (02/07/2025 11:28 AM EDT) Anatomical Region Laterality Modality Breast N/A Mammography 02/10/2025 12:0 9 PM EDT Impressions 02/10/2025 12:11 PM EDT No suspicious abnormality identified. OVERALL ASSESSMENT: ACR BI-RADS CATEGORY: 1, NEGATIVE: Recommend continued routine annual screening mammogram. The standard false-negative rate of mammography is between 10% and 25%. Complex patterns or increased breast density will markedly elevate the false-negative rate of mammography. A letter, in lay terminology, with the results of this exam will be mailed to the patient. 02/10/2025 12:11 PM by Crissy Medina MD on Narrative 02/10/2025 12:11 PM EDT BILATERAL DIGITAL SCREENING MAMMOGRAM WITH TOMOSYNTHESIS CLINICAL INDICATION: Screening mammogram TECHNIQUE: Bilateral low dose full field digital breast tomosynthesis imaging was performed. CAD was utilized. COMPARISON: Prior studies dating back to 03/02/2016 FINDINGS: There are scattered areas of fibroglandular density. RIGHT BREAST: No suspicious masses, calcifications, or areas of distortion are seen. LEFT BREAST: No suspicious masses, calcifications, or areas of distortion are seen. Corbin Dominguez MD IMG MAMMOGRAPHY ORDERABLES F inal Result * POCT occult blood stool (02/10/2016 11:45 AM EDT) Fecal Occult Blood Normal [facility] Stool 02/10/2016 11:4 5 AM EDT Carmina E Page WELLNESS MANAGER POINT OF CARE TEST ORDERABLE S Final Result [facility]
[address] [place] [address], [place] [phone] from Last 3 Months or Most Recently Relevant to Health Maintenance Insurance [facility] Medicare Advantage [place] [address] Advance Directives * CPR (Attempt to Resuscitate) (Latest Code Status on File) Date Activated Date Inactivated Comments 07/30/2018 5:23 PM 08/02/2018 3:27 PM Question Answer Comments Code Status (Patient has no pulse and is not breathing): CPR (Attempt to Resuscitate) Medical Interventions (Patie nt has pulse or is breathing): Full Healthcare Agents on File Name Relationship Healthcare Agent Relationship Communication Theodore David [facility] Care Surrogat e Care Teams Electric Razor Mechanic Relationship Specialty Start Date End Date Corbin Dominguez MD [address] [facility] [address] [place] [address] PCP - General 02/24/15
[2025-04-29 11:33] LABS: Hematocrit 42.8 % (37.0-47.0); Hemoglobin 14.6 g/dL (12.2-16.2); Immature Granulocytes % 0.4 %; Mean Corpuscular HGB Conc 34.1 g/dL (31.8-35.4); Mean Corpuscular Hemoglobin 33.7 pg (27.0-31.2); Mean Corpuscular Volume 98.8 fl (81-99); Nucleated Red Blood Cells % 0 %; Platelet Count 251 K/mm3 (142-424); Red Blood Count 4.33 M/mm3 (4.20-5.40); Red Cell Distribution Width-SD 43.3 fL; White Blood Count 8.2 K/mm3 (4.8-10.8)
[2025-04-29 11:56] LABS: Alanine Aminotransferase 23 U/L (12-78); Albumin Level 4.1 g/dl (3.5-5.0); Albumin/Globulin Ratio 1.9 (1.1-1.8); Alkaline Phosphatase 104 U/L (38-126); Amylase 49 U/L (30-110); Anion Gap 14.2 mEq/L (5-15); Aspartate Amino Transferase 26 U/L (14-36); Bilirubin,Total 0.6 mg/dl (0.2-1.3); Blood Urea Nitrogen 14 mg/dl (7-17); Calcium 9.8 mg/dl (8.4-10.2); Carbon Dioxide 24 mmol/L (22.0-30.0); Chloride 106 mmol/L (98-107); Creatinine,Serum 1.00 mg/dl (0.52-1.04); Estimated Glomerular Filt Rate 54 ml/min (>60); GFR (African American) 65 ML/MIN (>60); Globulin 2.2 g/dL (1.3-3.2); Glucose 150 mg/dl (74-100); Iron 120 ug/dL (37-170); Potassium 4.2 mmoL/L (3.5-5.1); Sodium 140 mmol/L (136-145); Total Protein,Serum 6.3 g/dl (6.3-8.2)
[2025-04-29 12:05] LABS: Total Iron Binding Capacity 340 ug/dL (265-497)
[2025-04-29 12:47] LABS: Vitamin B12 715 pg/mL (239-931)
[2025-04-30 08:32] LABS: CA 19-9 53 U/mL (0-35)
== END 2025-04-29 23:59 | disposition home or self-care (01) ==
LOC: LAB 11:11
PROVIDERS: PCP Family Medicine; Visit Provider Internal Medicine Gastroenterology
DX: K86.1 Other chronic pancreatitis (principal); K74.69 Other cirrhosis of liver; B19.20 Unspecified viral hepatitis C without hepatic coma; R97.8 Other abnormal tumor markers; Q45.3 Other congenital malformations of pancreas and pancreatic duct; K86.81 Exocrine pancreatic insufficiency
CPT/HCPCS: 36415; 80053; 82150; 82607; 83540; 83550; 85025; 86301

== ENCOUNTER 2025-06-28 10:14 | Emergency (ER) | payer MEDICARE, SELFPAY ==
[2025-06-28 10:21] VITALS: BP 111/76; PULSE 79; RESP 16; TEMP 36.9; O2SAT 96; BMI 21.4
--- NOTE | 2025-06-28 10:31 | PC.NURSE ---
Read note from provider at [facility]. Patient has order for 2view chest x ray from [facility] provider. Spoke with registration, verified patient has order in computer. Patient states that she does not want to be seen by ER provider.
--- OUTSIDE RECORDS SUMMARY | 2025-06-28 10:31 | XMS_ITS | Clinical Summary ---
Author Organization Healthcare Address [address] [facility] [place] [address] Care Team Providers Care Bar Tender Name Role Phone Corbin Dominguez MD Primary Care Provider [phone] Allergies No known active allergies Medications busPIRone (Buspar) 10 MG tablet TAKE 1 TABLET DAILY. 0 Active cholecalciferol (Vitamin D-3) 50 MCG (1999 UT) tablet Take 4,000 Units by mouth 1 (one) time each day. Active pancrelipase, Spk-Omyo-Rfeb, (Creon) 12868-454830 units capsule delayed-release particles capsule 0 Active [...] 75+ series) 02/01/2023 [facility]-Depression Screening 11/03/2023 11/02/2022 [id number] Vaccine ( season) 2025 04/19/2022, 04/14/2021, 08/10/2020, Additional history exists [facility]-Influenza Vaccine (#1) 03/03/202503/23, 04/02/2020, 04/10/2017 [facility]-DTaP,Tdap,and Td Vaccines (2 - Td or Tdap) 01/18/2027 01/18/2017 [facility]-Pneumococcal Vaccine: 50+ Years Completed 07/21/2022, 04/10/2017 [facility]-Breast Cancer Screening Discontinued 10/07/2022, 10/07/2022, 10/06/2021, Additional history exists HPV Vaccines (No Doses Required) Completed [facility]-HIB Vaccines Aged Out No longer e [...] patient's age to complete this topic Insurance [facility] MEDIC[facility] Care Teams Bar Tender Relationship Specialty [place] [id number] PCP - General 11/13/20
--- OUTSIDE RECORDS SUMMARY | 2025-06-28 10:31 | XMS_ITS | Encounter Summary ---
Author Organization [facility] Address [address] [place] [address] Care Team Providers Care Inspector Rag Sorting Name Role Phone Corbin Dominguez MD Primary Care Provider [phone] Encounter Details Date Type Department Care Team (Late st Contact Info) Description 11/27/2012 Conversion Encounter [facility] [address] [place] [address] Interface, See Report Social History [...] See Report - 11/27/2012 12:00 AM EDT [facility] [address] [place], [place] [id number] Patient: DARLENE SAAB. MR #: : [id number] Date of Visit: 11/27/2012 Attending Physician: Carmina Merino Dictated By: CARMINA MERINO Referring Physician: Diagnosis: ANNUAL Allergies: NKDA History of present illness: ANNUAL WWE. PT. DENIES ANY CURRENT [facility] PROBLEMS. 62 yo female here for annual [...] on filedocumented in this encounter Care Teams Inspector Rag Sorting Relationship Specialty Start Date End Date Corbin Dominguez MD [address] [facility] [address] [facility] [address] [place] [address] PCP - General 02/24/15 documented as of this encounter
--- OUTSIDE RECORDS SUMMARY | 2025-06-28 10:31 | XMS_ITS | Encounter Summary ---
Author Organization Healthcare Address [address] [place] [address] Care Team Providers Care Natural Gas Inspector Name Role Phone Corbin Dominguez MD Primary Care Provider [phone] Reason for Visit * Reason Comments Med Refill Encounter Details Date Type Department Care Team (Late st Contact Info) Description 08/02/2021 Refill [place] [facility] [address] [place] [address] Cristal Vazquez MD [address] [place] [address] Social History Tobacco Use Types [...] documented as of this encounter Care Teams Natural Gas Inspector Relationship Specialty [place] [id number] PCP - General 11/13/20 documented as of this encounter
--- OUTSIDE RECORDS SUMMARY | 2025-06-28 10:31 | XMS_ITS | Clinical Summary ---
Author Organization [facility] Address [address] [place] [address] Care Team Providers Care Director Clinical Pharmacology Name Role Phone Corbin Dominguez MD Primary Care Provider [phone] Allergies No known active allergies Medications metoclopramide [...] for cervical cancer 02/10/2016 Pelvic pain 02/10/2016 Family History Medical History Relation Name Comments [...] VACCINE 01/31/2025 03/23/2021, , 04/10/2017 COVID-19 Vaccine (6 - 4-2 5 season) 2025 03/13/2024, 04/19/2022, 04/14/2021, Additional history exists TDAP/TD VACCINES (2 - Td or Tdap) 01/18/2027 017 MAMMOGRAM 02/07/2027 02/07/2025, 12/31, 10/07/2022, Additional history exists Pneumococcal Vaccine 50+ Completed 07/21/2022, 03/2017 Medical Devices Implanted Type Area Sql Analyst Device Identifier Shelf Expiration Date Model / Serial / Lot Reload Stplr Lnr Cut Prox Thk 55 Grn - Sna - [id number] Implanted:Qty : 1 on 07/30/2018 by Delroy Godoy MD at [facility] Implant N/A: Abdomen [employer] [...] 11:45 AM EDT) Fecal Occult Blood Normal [facility] Stool 02/10/2016 11:4 5 AM EDT Carmina Pop Page WATER TREATMENT TECHNICIAN POINT OF CARE TEST ORDERABLE S Final Result [facility]
[address] [place] [address], from Last 3 Months or Most Recently Relevant to Health Maintenance Insurance [facility] Medicare Advantage [employer] PPO Advance Directives * CPR (Attempt to Resuscitate) (Latest Code Status on File) Date Activated Date Inactivated Comments 07/30/2018 5:23 PM 08/02/2018 3:27 PM Question Answer Comments Code Status (Patient has no pulse and is not breathing): CPR (Attempt to Resuscitate) Medical Interventions (Patie nt has pulse or is breathing): Full Healthcare Agents on File Name Relationship Healthcare Agent Relationship Communication Theodore Saab Spouse Health Care Surrogat e Care Teams Director Clinical Pharmacology Relationship Specialty Start Date End Date Corbin Dominguez MD [address] [facility] [address] [facility] [address] [place] [id number] PCP - General 02/24/15
[2025-06-28 10:36] LABS: Coronavirus 19, PCR Not Detected (NotDetected); Influenza B, PCR Not Detected (NotDetected)
[2025-06-28 11:03] LABS: Influenza A, PCR Detected (NotDetected)
== END 2025-06-28 10:38 | disposition left against medical advice (07) ==
LOC: ER 10:29
PROVIDERS: Emergency Provider Emergency Medicine; PCP Family Medicine
DX: J10.1 Influenza due to other identified influenza virus with other respiratory manifestations (principal)
CPT/HCPCS: 87636; 99211; 99282

== ENCOUNTER 2025-06-28 10:37 | Outpatient (CLI) | payer MEDICARE, SELFPAY ==
--- NOTE | 2025-06-28 11:04 | XR_ITS ---
PROCEDURE INFORMATION: Exam: XR Chest Exam date and time: 06/28/2025 10:54 AM Age: 75 years old Clinical indication: Cough TECHNIQUE: Imaging protocol: Radiologic exam of the chest. Views: 2 views. COMPARISON: CT LUNG SCREENING 05/20/2024 12:33 PM FINDINGS: Lungs: Unremarkable. No consolidation. Pleural spaces: Unremarkable. No pleural effusion. No pneumothorax. Heart/Mediastinum: Unremarkable. No cardiomegaly. Bones/joints: Unremarkable. Organs: Cholecystectomy clips are seen. IMPRESSION: No acute findings.
== END 2025-06-28 23:59 ==
LOC: RAD 10:39
PROVIDERS: PCP Family Medicine; Visit Provider Student in an Organized Health Care Education/Training Program
DX: R05.9 Cough, unspecified (principal); Z90.49 Acquired absence of other specified parts of digestive tract
CPT/HCPCS: 71046